=== PATIENT | female | born 1980 | race Caucasian/White ===

== ENCOUNTER → 2017-08-29 | Day surgery (SDC) | payer BC, OTHER ==
[2017-08-27 08:26] VITALS: BMI 47.0
[~2017-08-29] VITALS: Ht 162.6 cm; Wt 128.2 kg
[~2017-08-29] MED LIST: ATROPINE SULFATE 0.1 MG/ML 5ML SYR IV PRN; BACITRACIN OINT 15 GM TUBE ONE; BUPIVACAINE 0.5 % 5 MG/1 ML MPF 30ML VIAL ONE; BUPR-79 PO; CEFAZOLIN 3000MG IV PUSH 15 ML IV SCH; CEFAZOLIN SOD 2000MG/10 ML IV PUSH IV ONE; DEXAMETHASONE SOD INJ 4 MG/ML VIAL ONE; EpHEDrine SULFATE INJ 50 MG/ML AMP IV PRN; FENTANYL CITRATE INJ 50 MCG/1 ML 2 ML VIAL ONE; GLYCOPYRROLATE INJ 0.2 MG/ML VIAL ONE; HYDROmorphone INJ 1 MG/ML SYR IV PRN; LABETALOL HCL IV 5 MG/ML 20ML IV PRN; LACTATED RINGER'S 1000ML 1,000 ML IV SCH; LEVOIUD TOP; LIDOCAINE HCL 1% 20 ML VIAL ONE; LIDOCAINE HCL 2% 2 ML VIAL (20MG/ML) ONE; MEPERIDINE HCL 25 MG/ML CARP IV PRN; MIDAZOLAM HCL 1 MG/ML 2ML VIAL ONE; MoRPHine SULFATE 2 MG/ML CARP IV PRN; MoRPHine SULFATE 4 MG/ML 1 ML CARP\\VIAL IV PRN; NEOSTIGMINE METHYLSULFATE 5 MG/5 ML SYR ONE; ONDANSETRON INJ 2 MG/ML 2 ML VIAL IV PRN; ONDANSETRON INJ 2 MG/ML 2 ML VIAL ONE; OXYC-57 PO; OXYCODONE/ACETAMINOPHEN 5-325 TAB PO PRN; PRLSR20 PO; PROPOFOL IV EMULSION 10 MG/ML 20 ML VIAL IV ONE; ROCURONIUM BROMIDE 10 MG/ML 5 ML VIAL IV ONE
[2017-08-29 09:23] VITALS: BP 151/72; PULSE 78; TEMP 36.9; O2SAT 97; Ht 162.6 cm; Wt 128.2 kg
--- NOTE | 2017-08-29 09:48 | History & Physical Bridge Note ---
H&P Re-Evaluation Bridge Note: I have examined the patient, reviewed the History & Physical and in the interval since the performance of the History & Physical I have noted the following changes of clinical significance: No changes noted
--- NOTE | 2017-08-29 11:59 | [facility] Post Operative Brief Note ---
Immediate Operative Summary Operative Date Aug 29, 2017. Pre-Operative Diagnosis Cholelithiasis, chronic cholecystitis Post-Operative Diagnosis Cholelithiasis, chronic cholecystitis Procedure(s) Performed Laparoscopic Cholecystectomy Surgeon Dr. Naeem Vail Rn Progressive Care Unit Surgeon(s) Maggy Barrett PA-C Estimated Blood Loss 10ml Findings cholelithiasis, chronic cholecystitis Fluids (cc crystalloids) 1000ml Specimens Permanent specimens A: Gallbladder and contents Drains none Anesthesia general Complication(s) None Disposition Recovery Room / PACU
--- NOTE | 2017-08-29 12:12 | Discharge Instructions ---
Discharge Instructions Date of Service Aug 29, 2017. Admission Reason for Admission: Symptomatic Cholelithiasis Discharge Discharge Diagnosis / Problem: same Discharge Goals Goal(s): Decrease discomfort, Improve function Activity Recommendations Activity Limitations: as noted below No heavy lifting over 20 pounds for 2 weeks No strenuous activity until cleared by surgeon No submerging incisions underwater for 2 weeks (no bathing, swimming, or hot tubs) No driving while taking narcotic pain medication or until you are pain free . Instructions / Follow-Up Instructions / Follow-Up You may shower in 3 days, sponge bath and wash hair in meantime Keep dressings clean and dry and then remove in 3 days Keep steri strips on incisions for 7 days and then remove, they may fall off on their own that is okay Walking and light activity is encouraged You may take extra strength Ibuprofen in between Percocet as needed. Do not take Tylenol in between Percocet dosing as Percocet has Tylenol in it Follow-up in surgical office in 1-2 weeks, please call [phone] if you do not already have an appointment Current Hospital Diet Patient's current hospital diet: Discharge Diet Recommended Diet: Regular Diet, Low Fat Diet Procedures Procedures Performed: Laparoscopic Cholecystectomy Pending Studies Studies pending at discharge: yes List of pending studies: Gallbladder pathology- will be reviewed at follow-up visit Medical Emergencies . Who to Call and When: Medical Emergencies: If at any time you feel your situation is an emergency, please call 911 immediately. . Non-Emergent Contact Non-Emergency issues call your: Primary Care Provider, Surgeon Call Non-Emergent contact if: you have a fever, temperature is above 101.5, your pain is not controlled, your pain is worsening, your pain is unusual for you, wound has increased drainage, wound has increased redness, wound has increased pain . "Provider Documentation" section prepared by Maggy Barrett. . VTE Core Measure Inpt VTE Proph given/why not?: SCD's [place] Drug Monitoring Program Search Results: patient reviewed within database, no issues identified
[2017-08-29] MEDS: FENTANYL CITRATE INJ 50 MCG/1 ML 2 ML VIAL IV PRN ×2 (12:15→12:20)
--- NOTE | 2017-08-29 12:29 | OPERATIVE REPORT ---
DATE OF OPERATION: 08/29/2017 PREOPERATIVE DIAGNOSIS: Chronic cholecystitis, cholelithiasis. POSTOPERATIVE DIAGNOSIS: Same. OPERATION: Laparoscopic cholecystectomy. SURGEON: Dr. Naeem Vail. AERIAL HURRICANE HUNTER: Maggy Barrett PA-C. ANESTHESIA: General. ESTIMATED BLOOD LOSS: About 10 mL. IV FLUIDS: 1000 mL. FINDINGS: Chronic cholecystitis, cholelithiasis. COMPLICATIONS: None. INDICATIONS FOR THE PROCEDURE: This is a 36-year-old female who presented symptomatic cholelithiasis. The patient will be required to do laparoscopic cholecystectomy, possible open, possible cholangiogram. I did talk to the patient about the benefit and risk, alternate procedure. I indicated the risks may include but not limited such as bleeding, infection, injury to common bile duct, injury to bowel, may need ERCP, DVT, incisional hernia. The patient understands. She signed informed consent and I answered all questions. DETAILS OF PROCEDURE: We brought the patient to the OR, put the patient in the supine position. The patient received SCD on bilateral legs to prevent DVT. Also, the patient received 2 grams Ancef IV for prophylactic antibiotic. The patient received general anesthesia without difficulty. The abdomen was prepped and draped in routine sterile fashion. After a timeout, I injected local anesthesia by using 1% lidocaine mixed with 0.5% Marcaine just above umbilical, made a small incision just above umbilical, opened fascia and opened peritoneum under direct vision. I put a Nayeli trocar in, connected to CO2 to create pneumoperitoneum. Flow rate is 6 liter per minute. Pressure not more than 14 mmHg. Once we get a nice pneumoperitoneum, we put a camera in to look around the abdomen showing normal finding on the stomach, small bowel, large bowel, liver; however, there was some omentum covering the gallbladder wall showing more thickening, edema, showing chronic cholecystitis. Then, we put another 3.5 mm trocar on the right upper quadrant. Once all trocars in I put grasper in to hold the gallbladder base, put direction to the diaphragm and put another grasper in to hold the pouch of the gallbladder, put latter to expose the triangle of Calot. The cystic duct was identified and mobilized and put two 5 mm metal clips on the proximal cystic duct, 1 on the distal cystic duct. I used scissor transection the cystic duct. The cystic artery was identified and mobilized. I put two 5 mm metal clips on the proximal cystic artery, 1 on the distal cystic artery, then I used scissor transection the cystic artery. Then I used Bovie to take down the gallbladder through the liver bed without difficulty. Rechecked no active bleeding, no bile leak. We removed the gallbladder through the catch bag. Then we reinserted Nayeli trocar in creating pneumoperitoneum again to look around the abdomen showing no active bleeding, no bile leak from the liver bed. Then we removed all trocar under direct vision, no active bleeding from trocar sites. The pneumoperitoneum was released and then we closed the umbilical incision, fascial layer by using #1 Vicryl [id number] x2, closed the skin and subcutaneous layer by using 2-0 Vicryl interrupted and closed skin by using 4-0 Vicryl continuous running. Then we closed another 3.5 mm trocar site skin only by using 4-0 Vicryl. Then we put the dressing on. The patient tolerated the procedure well. All the instrument, needle and sponge count were correct x2 at the end of case. The patient transferred to recovery room in stable condition. The specimen sent to pathology. After procedure, I did talk to the patient and family member about OR finding and procedure we did, they understand. I attest to the content of the Intraoperative Record and any orders documented therein. Any exception s are noted below.
--- NOTE | 2017-08-29 12:37 | Anesthesiology Progress Note ---
Anesthesia Post Op Note Date & Time Aug 29, 2017 at 12:37 Vital Signs Pain Intensity: 3 Vital Signs Past 12 Hours Date Time Temp Pulse Resp B/P (MAP) Pulse Ox O2 Delivery O2 Flow Rate FiO2 08/29/17 12:35 36.3 66 16 130/80 97 Nasal Cannula 2 08/29/17 12:25 60 16 140/76 96 Nasal Cannula 2 08/29/17 12:15 60 14 140/76 99 Oxymask 5 08/29/17 12:06 36.4 76 12 151/94 98 Oxymask 5 08/29/17 09:23 36.9 78 16 151/72 (98) 97 Room Air Notes Mental Status: alert / awake / arousable, participated in evaluation Pt Amnestic to Procedure: Yes Nausea / Vomiting: adequately controlled Pain: adequately controlled Airway Patency, RR, SpO2: stable & adequate BP & HR: stable & adequate Hydration State: stable & adequate Anesthetic Complications: no major complications apparent
[2017-08-29 12:50] VITALS: BP 131/61; PULSE 65; TEMP 36.6; O2SAT 95
[2017-08-29 13:20] VITALS: BP 173/97; PULSE 76; TEMP 36.7; O2SAT 94
== END | disposition home or self-care (01) ==
LOC: C.ACU 09:01
PROVIDERS: ATTEND Surgery
DX: K80.10 Calculus of gallbladder with chronic cholecystitis without obstruction (principal); F17.200 Nicotine dependence, unspecified, uncomplicated; Z79.899 Other long term (current) drug therapy; Z98.890 Other specified postprocedural states; E66.9 Obesity, unspecified; Z68.42 Body mass index [BMI] 45.0-49.9, adult; Z86.718 Personal history of other venous thrombosis and embolism

== ENCOUNTER 2023-10-21 16:10 | Observation (INO) ==
--- OUTSIDE RECORDS SUMMARY | 2023-10-21 16:15 | External Medical Summary | Summary of Care ---
Author Name Unknown Organization [facility] Address [address] [place] [address] Phone [phone] Care Team Providers Care Bologna Maker Name Role Phone Zora Fonseca MD Primary Care Prov ider Encounter Details Date Type Department Care Team (Late st Contact Info) Description 09/17/2023 Specialty Pharmacy [facility], [address] [phone] Medication, [facility], [address] [id number] Allergies No known active allergiesdocumented as of this encounter (statuses as of 09/21/2023) Medications Medication Sig Dispensed Refills Start Date End Date Status Levonorgestrel 20 MCG/24HR Intrauterine Intrauterine Device Insert 1 Each into uterus once. Inserted 2009? 1 Each 0 Active Fexofenadine HCl 180 MG Oral Tablet Take 1 Tablet by mouth in the morning. 0 10/08/2018 Active Apixaban 5 MG Oral Tablet (Eliquis) Take 1 Tablet by mouth in the morning and 1 Tablet before bedtime. 180 Tablet 3 02/15/2023 Active Entresto 97-103 MG Oral Tablet (sacubitril-valsarta n 97-103 mg per tab) TAKE BY MOUTH 1 TABLET IN THE MORNING AND 1 TABLET BEFORE BEDTIME. 180 Tablet 3 02/15/2023 Active Empagliflozin 10 MG Oral Tablet (Jardiance) Take 1 Tablet by mouth in the morning. 90 Tablet 3 02/15/2023 Active Spironolactone 25 MG Oral Tablet (Aldactone) Take 1 Tablet by mouth in the morning. 90 Tablet 3 02/15/2023 Active Torsemide 20 MG Oral Tablet (Demadex) Take 1 Tablet by mouth in the morning. Take an additional tablet as needed. 200 Tablet 3 02/15/2023 Active Rosuvastatin Calcium 5 MG Oral Tablet (Crestor)Indications :Dyslipidemia, goal LDL below 100 Take 1 Tablet by mouth in the morning. 90 Tablet 3 02/15/2023 Active Gabapentin 300 MG Oral Capsule (Neurontin)Indicatio ns:Neuropathic pain,Numbness and tingling,DDD (degenerative disc disease), cervical Take 1 Capsule by mouth in the morning and 1 Capsule in the evening. 180 Capsule 3 05/02/2023 Active Levothyroxine Sodium 50 MCG Oral Tablet (Levoxyl)Indications :Subclinical hypothyroidism,Histo ry of partial thyroidectomy TAKE 1 TABLET BY MOUTH IN THE MORNING. (AT LEAST 30 MIN PRIOR TO BREAKFAST OR OTHER MEDS). 90 Tablet 1 05/02/2023 Active Omeprazole 40 MG Oral Capsule Delayed Release (PriLOSEC) Take 1 Capsule by mouth in the morning. 90 Capsule 1 05/02/2023 Active Montelukast Sodium 10 MG Oral Tablet (Singulair) Take 1 Tablet by mouth at bedtime. 90 Tablet 5 05/02/2023 Active hydrOXYzine HCl 25 MG Oral TabletIndications:Pa ron attack Take 1 Tablet by mouth every 6 hours as needed for Anxiety. 40 Tablet 0 07/26/2023 Active Escitalopram Oxalate 20 MG Oral Tablet (Lexapro)Indications :REMY (generalized anxiety disorder) TAKE 1 TABLET BY MOUTH EVERY DAY IN THE MORNING 90 Tablet 3 08/07/2023 Active Metoprolol Succinate ER 50 MG Oral Tablet Extended Release 24 Hour (toPROL XL) Take 1.5 Tablets by mouth in the morning and 1.5 Tablets before bedtime. 270 Tablet 3 09/07/2023 Active documented as of this encounter (statuses as of 09/21/2023) Active Problems Problem Noted Date Diagnosed Date Major depressive disorder, single episode, mild 05/02/2023 Bilateral carpal tunnel syndrome 03/21/2023 Paroxysmal atrial fibrillation 11/02/2022 ICD (implantable cardioverter-defibrillator) in place 06/01/2022 REMY (generalized anxiety disorder) 06/01/2022 HFrEF (heart failure with reduced ejection fract ion) 02/10/2022 NICM (nonischemic cardiomyopathy) 07/29/2021 Acute systolic heart failure 07/29/2021 History of sarcoma of soft tissue 02/02/2021 Family history of cancer 02/02/2021 Pseudotumor cerebri 11/27/2018 HTN, goal below 140/90 07/15/2018 Diarrhea due to malabsorption 07/15/2018 Morbid obesity due to excess calories 07/15/2018 Thyromegaly 06/28/2018 ADVANCE DIRECTIVE INFORMATION 12/26/2005 Overview: No, Advance Directive brochure given to patient. Allergic rhinitis 01/30/2002 Irritable bowel syndrome Overview: Librax helps documented as of this encounter (statuses as of 09/21/2023) Resolved Problems Problem Noted Date Diagnosed Date Resolved Date Mild depression 06/01/2022 05/02/2023 Body mass index (BMI) of 45. 0 to 49.9 in adult 02/13/2022 09/20/2022 Overview: Per Obesity protocol - Per Obesity protocol - Per Obesity protocol - - Body mass index (BMI) of 40. 0 to 44.9 in adult 08/15/2021 02/16/2022 Overview: Per Obesity protocol - Per Obesity protocol - - Body mass index (BMI) of 45. 0 to 49.9 in adult 08/16/2020 08/18/2021 Overview: Per Obesity protocol - - Body mass index (BMI) of 40. 0 to 44.9 in adult 11/18/2018 08/19/2020 Overview: Per Obesity protocol #1 - Body mass index (BMI) of 45. 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 07/15/2018 JOINT PAIN-L-LEG 10/20/2004 07/15/2018 Encounter for supervision of other normal 12/16/2002 07/15/2018 Overview: ICD-10 update of inactive term ACUTE CYSTITIS 12/03/2008 Overview: Resolved per Benign Acute Dxs Protocol #3 documented as of this encounter (statuses as of 09/21/2023) Immunizations Name Administration Dates Next Due PPD 06/27/2017 Seasonal Influenza, PF, 6 M & above, IM , (FluLaval or Fluzone) 09/10/2020,06/28/2018,07/30/2017 TDAP (age 10 and older)(Boostrix) 03/07/2018 documented as of this encounter Social History Tobacco Use Types Packs/Day Years Used Date Smoking Tobacco: Former Cigarettes 0.5 6 Q uit: 06/08/2018 Smokeless Tobacco: Never Comments:started age 19 Alcohol Use Standard Drinks/Week Comments No 0 (1 standard drink = 0.6 oz pur e alcohol) PHQ-2 Answer Date Recorded PHQ Adult Total Score 2 05/02/2023 Sex and Gender Information Value Date Recorded Sex Assigned at Not on file Gender Identity Not on file Sexual Orientation Not on file Job Start Date Occupation Industry Not on file Not on file Not on file documented as of this encounter Functional Status Functional Status Response Date of Assess ment Are you deaf or do you have serious difficulty h earing? No 11/04/2018 Are you blind or do you have serious difficulty seeing, even when wearing glasses? No 11/04/2018 Do you have serious difficul ty walking or climbing stairs? (5 years old or older) No 11/04/2018 Do you have difficulty dress ing or bathing? (5 years old or older) No 11/04/2018 Because of a physical, menta l, or emotional condition, do you have difficulty doing errands alone such as visiting a doctor s office or shopping? (15 years old or older) No 11/04/19 19 Cognitive Status Response Date of Assessm ent Because of a physical, menta l, or emotional condition, do you have serious difficulty concentrating, remembering, or making decisions? (5 years old or older) No 11/04/2018 documented as of this encounter Progress Notes * Kaye Bennett [facility] - 09/21/2023 4:16 PM EST Patient called back and spoke with Tayler. Would like prescription forwarded to [facility] in [place]. Kaye Bennett, Pharm.D. Specialty Medication Pharmacist [facility] 09/21/2023, 4:17 PM * Cassia Howe [facility] - 09/19/2023 9:31 AM EST 1st attempt - Left message to set up delivery for Weherbvy 2.4. [facility] Fried Cake Maker [facility] 09/19/2023,9:31 AM * Nancy Bullock [facility] - 09/17/2023 4:30 PM EST [facility] Retail Medication Protocol, Chart Review (WIMLA) MRN Verified: yes Per protocol, further retail medication education being provided by office or by [facility] when requested by patient. Prescribed medication: Medication: Wegovy Strength and Frequency: 2.4 mg SQ weekly Indication: weight management/loss Appropriate dose based on available information: yes Applicable lab values: Yes, Glucose and HGBA1C Results: Lab Results Component Value Date/Time GLUCOSE - [facility] 78 09/07/2023 09:50 AM GLUCOSE - [facility] 91 05/11/2023 01:54 PM GLUCOSE - [facility] 99 09/20/2022 01:28 PM GLUCOSE - [facility] 108 08/03/2020 12:44 PM GLUCOSE - [facility] 83 11/22/2018 02:13 PM GLUCOSE - [facility] 95 10/21/2018 04:15 PM GLUCOSE METER POCT - [facility] 81 03/21/2023 07:00 AM GLUCOSE, GESTATIONAL 115 06/23/2004 11:56 AM GLUCOSE, GESTATIONAL 83 10/29/2002 02:46 PM GLUCOSE, URINE - [facility] >=1000 (A) 09/20/2022 01:28 PM GLUCOSE, URINE - [facility] 250 (A) 04/13/2022 02:50 PM GLUCOSE, URINE - [facility] Negative 02/02/2022 02:23 PM GLUCOSE, URINE - [facility] neg 06/13/2005 12:00 AM GLUCOSE, URINE - [facility] NEGATIVE 11/30/2004 04:57 PM GLUCOSE, URINE - [facility] neg 09/08/2004 12:00 AM GLUCOSE-OUTSIDE LAB 70 05/06/2023 12:00 AM GLUCOSE-OUTSIDE LAB 80 12/13/2018 12:00 AM Wgt/BSA: Yes, Wt Readings from Last 3 Encounters: 09/07/23 129.3 kg (285 lb) 07/18/23 125.6 kg (277 lb) 05/11/23 126 kg (277 lb 11.2 oz) . Reason for call to patient today by automotive tire technician: [facility] info: $32.15 copay Shipment to be set up by automotive tire technician, questions given to pharmacist as needed. Piedad Bullock, Pharm.D. Clinical Specialty Pharmacist [facility] 09/17/2023, 4:30 PM documented in this encounter Plan of Treatment Upcoming Encounters Date Type Department Care Team (Late st Contact Info) Description 10/18/2023 10:00 AM EST Telemedicine Nutrition & Weight Management, [facility] [address] [facility] [place] [id number] Rafy Simmons MD [address] [facility] [place] [phone] 10/24/2023 1:40 PM EST Office Visit Family Medicine [address] [place] [phone] Zora Fonseca MD [address] [place] [address] [place] [phone] 03/12/2024 9:30 AM EDT Office Visit Cardiology, [facility] [address] [facility] [place] [address] Terrie Sanchez CRNP [address] [place] [address] 04/07/2024 9:30 AM EDT Cardiac Studies Cardiology, [facility] [address] [place] [address] [facility] [address] [place] [address] 05/26/2024 8:30 AM EDT Office Visit Gynecology/Obstetrics [address] [place] [phone] Melinda Walls CRNP [address] [place] [address] Health Maintenance Due Date Last Done Comments Hepatitis B (1 of 3 - 3-dose series) 1981 COVID-19 Vaccine (#1) 05/07/1982 Pneumococcal Vaccine: Pediatrics (0 to 5 Years) and At-Risk Patients (6 to 64 Years) (1 - PCV) 1987 Hepatitis C Screening 1999 HPV/Co-Test 2011 Cervical Cancer Screening 08/10/2019 Pap Smear 08/10/2019 08/10/2016, 02/04/2004 Mammogram 2021 Influenza Vaccine (FLU shot) (#1) 2023 09/10/2020, 06/28/2018, 07/30/2017, Additional history exists TSH 05/01/2024 05/01/2023, 02/05, 01/28/2022, Additional history exists Depression Screening 05/02/2024 05/02/2023 Albumin/Creatinine Ratio 07/18/2024 07/18/2021 GFR 09/07/2024 09/07/2023, 08/0 01/2023, 05/06/2023, Additional history exists Diabetes Screening 09/07/2026 09/07/2023, 0 05/11/2023, 05/06/2023, Additional history exists DTaP,Tdap,and Td Vaccines (2 - Td or Tdap) 03/07/2028 03/07/2018 Lipid Panel 05/01/2028 05/01/2023, 02/05, 07/18/2021, Additional history exists IUD 7-Year 12/15/2028 12/15/2021 GARDASIL-HPV IMMUNIZATION SERIES Aged Out No longer eligible based on patient's age to complete this topic MENINGOCOCCAL (MENACTRA/MENVEO) Aged Out No longer eligible based on patient's age to complete this topic documented as of this encounter Medical Devices Not on filedocumented as of this encounter Advance Directives Latest Code Status on File Code Status Date Activated Date Inactivated Comments Full Code 03/21/2023 8:53 AM 03/21/2023 2:26 PM Question Answer Comments Discussion of Advance Directives occurred with: Not Discussed due to patient's condition Code Status History Code Status Date Activated Date Inactivated Comments Full Code 11/04/2018 9:41 AM 11/04/2018 8:16 PM This order reflects the patients wishes and were consensually agreed upon. Care Teams Bologna Maker Relationship Specialty Start Date End Date Zora Fonseca MD [address] [place] [address] [place] [id number] PCP - General Family Medicine 07/16/18 documented as of this encounter
--- OUTSIDE RECORDS SUMMARY | 2023-10-21 16:15 | External Medical Summary | Summary of Care ---
Author Name Unknown Organization [facility] Address [address] [place] [address] Phone [phone] Care Team Providers Care Graining Operator Name Role Phone Zora Fonseca MD Primary Care Prov ider Reason for Visit * Reason Onset Date Comments Medication Refill 09/17/2023 Advice 09/17/2023 Encounter Details Date Type Department Care Team (Late st Contact Info) Description 09/17/2023 Telephone Nutrition & Weight Management, [place] [address] [place], [place] [id number] Ry Vora, PRICILA [address], [place] [id number] Medication Refill; Advice Allergies No known active allergiesdocumented as of this encounter (statuses as of 09/18/2023) Medications Medication Sig Dispensed Refills Start Date [...] before bedtime. 270 Tablet 3 09/07/2023 Active Wegovy 2.4 MG/0.75ML Subcutaneous Solution Auto-injector (Semaglutide-Weight Management)Indicatio ns:Class 3 severe obesity due to excess calories with serious comorbidity and body mass index (BMI) of 45.0 to 49.9 in adult (HCC),HFrEF (heart failure with reduced ejection fraction) (HCC),Idiopathic cardiomyopathy (HCC),Pseudotumor cerebri,Thyromegaly, ICD (implantable cardioverter-defibri llator) in place,At risk for obstructive sleep apnea,NICM (nonischemic cardiomyopathy) ([facility]) Inject 2.4 mg (1 pen) under the skin once a week. 9 mL 1 09/17/2023 Active documented as of this encounter (statuses as of 09/18/2023) Active Problems Problem Noted Date Diagnosed Date [...] as of this encounter (statuses as of 09/18/2023) Resolved Problems Problem Noted Date Diagnosed Date [...] as of this encounter (statuses as of 09/18/2023) Immunizations Name Administration Dates Next Due PPD 06/27/2017 Seasonal Influenza, PF, 6 M & above, IM , (FluLaval or Fluzone) 09/10/2020,06/28/2018,07/30/2017 Seasonal Influenza, Split, I IV3, With Preserve, Inj 07/11/2004 TDAP (age 10 and older)(Boostrix) 03/07/2018 Varicella Vaccine (Chicken Pox) 04/17/2001,03/13 documented as of this encounter Social History [...] No 11/04/2018 documented as of this encounter Miscellaneous Notes * Addendum Note - Ry Vora DNP - 09/18/2023 1:47 PM ESTAddended by: RY VORA on: 09/18/2023 01:47 PM Modules accepted: Orders * Telephone Encounter - Sheila Freed LPN - 09/18/2023 1:28 PM EST Called pt. Did take the 1.7mg. Did vomit once with first injection but nothing after that. Should she start the 2.4 or do another month of the 1.7mg? Please advise. * Telephone Encounter - Marialuisa Lee OSA - 09/17/2023 1:40 PM EST Pt would like to speak with nurse about Wegovy dosage * Telephone Encounter - Ry Vora DNP - 09/17/2023 1:40 PM EST Order sent - may be autorouted to specialty pharmacy Ry Vora DNP, CRNP * Telephone Encounter - Charisma Martinez CPhT - 09/17/2023 1:28 PM EST Pt calling stating doctor needs to send new rx for Wegovy 2.4 mg dose. Pt stated she had completed Wegovy 1.7 MG/0.75ML Subcutaneous Solution Auto-injector (Semaglutide-Weight Management) and needs the new dose send over to her Pharmacy. Thank you, Charisma Martinez CPhT [facility] 09/17/2023,1:32 PM documented in this encounter Plan of Treatment Upcoming Encounters Date Type Department Care Team (Late st Contact Info) Description 10/18/2023 10:00 AM EST Telemedicine Nutrition & Weight Management, [address] [place] [address] Rafy Simmons MD [address] [place] [facility] [place] [phone] 10/24/2023 1:40 PM EST Office Visit Family Medicine [address] [place] [phone] Zora Fonseca MD [address] [place] [address] [place] [phone] 03/12/2024 9:30 AM EDT Office Visit Cardiology, [address] [place] [address] Terrie Sanchez CRNP [address] [place] [id number] 04/07/2024 9:30 AM EDT Cardiac Studies Cardiology, [facility] [address] [place] [address] [facility] [address] [place] [address] 05/26/2024 8:30 AM EDT Office Visit Gynecology/Obstetrics [address] [place] [address] Melinda Walls CRNP [address] [place] [address] Health Maintenance Due Date Last Done Comments [...] Not on filedocumented as of this encounter Visit Diagnoses Diagnosis Class 3 severe obesity due to excess calories with serious comorbidity and body mass index (BMI) of 45.0 to 49.9 in adult ([facility])- Primary HFrEF (heart failure with reduced ejection fraction) ([facility]) Idiopathic cardiomyopathy (HCC) Other primary cardiomyopathies Pseudotumor cerebri Benign intracranial hypertension Thyromegaly Goiter, unspecified ICD (implantable cardioverter-defibrillator) in place At risk for obstructive sleep apnea NICM (nonischemic cardiomyopathy) ([facility]) Other primary cardiomyopathies documented in this encounter Advance Directives Latest Code Status [...] and were consensually agreed upon. Care Teams Graining Operator Relationship Specialty Start Date End Date Zora Fonseca MD [address] [place] [address] [place] [id number] PCP - General Family Medicine 07/16/18 documented as of this encounter
--- OUTSIDE RECORDS SUMMARY | 2023-10-21 16:15 | External Medical Summary | Summary of Care ---
Author Name Unknown Organization [facility] Address [address] [place] [address] Phone [phone] Care Team Providers Care Dramatic Coach Name Role Phone Zora Fonseca MD Primary Care Prov ider Reason for Visit * Reason Comments Follow Up Encounter Details Date Type Department Care Team (Late st Contact Info) Description 09/07/2023 9:00 AM EST Office Visit Cardiology, [facility] [address] [place] [address] Terrie Sanchez CRNP [address] [facility] [address] NICM (nonischemic cardiomyopathy) ([facility])*; HFrEF (heart failure with reduced ejection fraction) ([facility]); FLNC-related myofibrillar myopathy; ICD (implantable cardioverter-defibril lator) in place; Paroxysmal atrial fibrillation ([facility]); Dyslipidemia, goal LDL below 100 Allergies No known active allergiesdocumented as of this encounter (statuses as of 09/07/2023) Medications Medication Sig Dispensed Refills Start Date End Date Status Levonorgestrel 20 MCG/24HR Intrauterine Intrauterine Device Insert 1 Each into uterus once. Inserted 2009? 1 Each 0 Active Fexofenadine HCl 180 MG Oral Tablet Take 1 Tablet by mouth in the morning. 0 9 Active Apixaban 5 MG Oral Tablet (Eliquis) Take 1 Tablet by mouth in the morning and 1 Tablet before bedtime. 180 Tablet 3 3 Active Entresto 97-103 MG Oral Tablet (sacubitril-valsa rtan 97-103 mg per tab) TAKE BY MOUTH 1 TABLET IN THE MORNING AND 1 TABLET BEFORE BEDTIME. 180 Tablet 3 3 Active Empagliflozin 10 MG Oral Tablet (Jardiance) Take 1 Tablet by mouth in the morning. 90 Tablet 3 3 Active Spironolactone 25 MG Oral Tablet (Aldactone) Take 1 Tablet by mouth in the morning. 90 Tablet 3 3 Active Torsemide 20 MG Oral Tablet (Demadex) Take 1 Tablet by mouth in the morning. Take an additional tablet as needed. 200 Tablet 3 3 Active Rosuvastatin Calcium 5 MG Oral Tablet (Crestor)Indicati ons:Dyslipidemia, goal LDL below 100 Take 1 Tablet by mouth in the morning. 90 Tablet 3 3 Active Gabapentin 300 MG Oral Capsule (Neurontin)Indica tions:Neuropathic pain,Numbness and tingling,DDD (degenerative disc disease), cervical Take 1 Capsule by mouth in the morning and 1 Capsule in the evening. 180 Capsule 3 3 Active Levothyroxine Sodium 50 MCG Oral Tablet (Levoxyl)Indicati ons:Subclinical hypothyroidism,Hi story of partial thyroidectomy TAKE 1 TABLET BY MOUTH IN THE MORNING. (AT LEAST 30 MIN PRIOR TO BREAKFAST OR OTHER MEDS). 90 Tablet 1 3 Active Omeprazole 40 MG Oral Capsule Delayed Release (PriLOSEC) Take 1 Capsule by mouth in the morning. 90 Capsule 1 3 Active Montelukast Sodium 10 MG Oral Tablet (Singulair) Take 1 Tablet by mouth at bedtime. 90 Tablet 5 3 Active hydrOXYzine HCl 25 MG Oral TabletIndications :Panic attack Take 1 Tablet by mouth every 6 hours as needed for Anxiety. 40 Tablet 0 3 Active Wegovy 1.7 MG/0.75ML Subcutaneous Solution Auto-injector (Semaglutide-Weig ht Management)Indica tions:Class 3 severe obesity due to excess calories with serious comorbidity and body mass index (BMI) of 45.0 to 49.9 in adult ([facility]) INJECT 1.7 MG UNDER THE SKIN ONCE A WEEK FOR 28 DAYS. AFTER FINISHING 1 MG INJECTIONS DO NOT START BEFORE FEBRUARY 05, 2023. 3 mL 0 3 09/07/20 23 Active Escitalopram Oxalate 20 MG Oral Tablet (Lexapro)Indicati ons:REMY (generalized anxiety disorder) TAKE 1 TABLET BY MOUTH EVERY DAY IN THE MORNING 90 Tablet 3 3 Active Metoprolol Succinate ER 50 MG Oral Tablet Extended Release 24 Hour (toPROL XL) Take 1.5 Tablets by mouth in the morning and 1.5 Tablets before bedtime. 270 Tablet 3 3 Active Metoprolol Succinate ER 50 MG Oral Tablet Extended Release 24 Hour (toPROL XL) Take 1 Tablet by mouth in the morning and 1 Tablet before bedtime. 180 Tablet 3 3 09/07/20 23 Discontinued(Ref ill) Ozempic (1 MG/DOSE) 4 MG/3ML Subcutaneous Solution Pen-injector (Semaglutide (1 MG/DOSE)) Inject 1 mg under the skin once a week. 3 mL 0 3 09/07/20 23 Discontinued documented as of this encounter (statuses as of 09/07/2023) Active Problems Problem Noted Date Diagnosed Date [...] as of this encounter (statuses as of 09/07/2023) Resolved Problems Problem Noted Date Diagnosed Date [...] as of this encounter (statuses as of 09/07/2023) Immunizations Name Administration Dates Next Due PPD 06/27/2017 SEASONAL INFLUENZA, PF, 6 M & Above, IM , (FLULAVAL or FLUZONE) 09/10/2020,06/28/2018,07/30/2017 TDAP (age 10 and older)(Boostrix) 03/07/2018 documented as of this encounter Social History Tobacco Use Types Packs/Day Years Used Date Smoking Tobacco: Former Cigarettes 0.5 6 Q uit: 06/08/2018 Smokeless Tobacco: Never Tobacco Cessation:Counseling Given: Not Answered Comments:started age 19 Alcohol Use Standard Drinks/Week [...] on file documented as of this encounter Last Filed Vital Signs Vital Sign Reading Time Taken Comments Blood Pressure 128/74 09/07/2023 8:53 AM EST Pulse 78 09/07/2023 8:53 AM EST Temperature - - Respiratory Rate - - Oxygen Saturation 97% 09/07/2023 8:53 AM EST Inhaled Oxygen Concentration - - Weight 129.3 kg (285 lb) 09/07/2023 8:53 AM EST Height - - Body Mass Index 48.92 04/02/2023 11:56 AM EDT documented in this encounter Functional Status Functional Status Response [...] as of this encounter Progress Notes * Terrie Sanchez CRNP - 09/07/2023 9:00 AM EST Cardiology Outpatient Visit 09/07/2023 Primary Newspaper Distributor Supervisor: Dr. 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 03/2022: genetic testing , pathogenic variant of the FLNC gene, Implicated in nonischemic dilated cardiomyopathy, myofibrillar myopathy 04/19/22: Implantation of dual-chamber Medtronic AICD , For primary prevention of sudden cardiac given nonischemic cardiomyopathy, and NSVT Paroxysmal atrial fibrillation diagnosed on AICD interrogation 07/2022-lasting 2 hours and 22 minutes, started on Eliquis [id number] score of 4 (female, CHF, HTN, DM) Hypertension, goal below 140/90 Pseudotumor cerebri, idiopathic intracranial hypertension, diagnosed 2019 History of preeclampsia x2 History of partial thyroidectomy History of bony sarcoma, 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 Patient carries a history of nonischemic dilated cardiomyopathy with a genetic variant of the FL NC gene related to mi fibular myopathy. LVEF has been as low as 25-29% and ultimately a primary prevention AICD was placed. Most recent device interrogation in July of 2023 showed an atrial pacing burden of 13%, no mode switches. No VT or VF. No shocks. Adequate battery life of approximately 10 years noted. Patient was last evaluated by the undersigned approximately 6 months ago. At this time she was feeling well and offered no acute concerns. An echocardiogram was obtained on 02/28/2023 showing a moderately reduced LV systolic function of 35-39%, improved. There is moderate diffuse left ventricular hypokinesis. No changes were made. In May patient went to the ED due to lightheadedness/hypotension- found to be dehydrated and torsemide was transiently reduced. Today the patient presents with family. Overall she is feeling generally well but continues to havepalpitations symptoms described as a racing/pounding heartbeat she will become lightheaded and a little more short of breath. She then develops like a head jensen sensation and gets a headache. Symptoms last a few minutes. Normally during the middle of the day. Denies exertional chest pain or worsening shortness of breath however if the weather is very hot or very cold she notices that she has more difficulty being active. +fatigue. No syncope. No orthopnea or PND. No lower extremity edema. No fever, chills, cough, hematochezia, melena, or hemoptysis. She states she is compliant with all medications and offers no side effects. She is currently working to get disability in place. Current Outpatient Medications Medication Sig Dispense Refill Levonorgestrel 20 MCG/24HR Intrauterine Intrauterine Device Insert 1 Each into uterus once. Inserted 2009? 1 Each 0 Fexofenadine HCl 180 MG Oral Tablet Take 1 Tablet by mouth in the morning. Apixaban 5 MG Oral Tablet (Eliquis) Take 1 Tablet by mouth in the morning and 1 Tablet before bedtime. 180 Tablet 3 Entresto 97-103 MG Oral Tablet (sacubitril-valsartan 97-103 mg per tab) TAKE BY MOUTH 1 TABLET IN THE MORNING AND 1 TABLET BEFORE BEDTIME. 180 Tablet 3 Empagliflozin 10 MG Oral Tablet (Jardiance) Take 1 Tablet by mouth in the morning. 90 Tablet 3 Spironolactone 25 MG Oral Tablet (Aldactone) Take 1 Tablet by mouth in the morning. 90 Tablet 3 Torsemide 20 MG Oral Tablet (Demadex) Take 1 Tablet by mouth in the morning. Take an additional tablet as needed. 200 Tablet 3 Rosuvastatin Calcium 5 MG Oral Tablet (Crestor) Take 1 Tablet by mouth in the morning. 90 Tablet 3 Gabapentin 300 MG Oral Capsule (Neurontin) Take 1 Capsule by mouth in the morning and 1 Capsule in the evening. 180 Capsule 3 Levothyroxine Sodium 50 MCG Oral Tablet (Levoxyl) TAKE 1 TABLET BY MOUTH IN THE MORNING. (AT LEAST 30 MIN PRIOR TO BREAKFAST OR OTHER MEDS). 90 Tablet 1 Omeprazole 40 MG Oral Capsule Delayed Release (PriLOSEC) Take 1 Capsule by mouth in the morning. 90Capsule 1 Montelukast Sodium 10 MG Oral Tablet (Singulair) Take 1 Tablet by mouth at bedtime. 90 Tablet 5 hydrOXYzine HCl 25 MG Oral Tablet Take 1 Tablet by mouth every 6 hours as needed for Anxiety. 40 Tablet 0 Wegovy 1.7 MG/0.75ML Subcutaneous Solution Auto-injector (Semaglutide-Weight Management) INJECT 1.7MG UNDER THE SKIN ONCE A WEEK FOR 28 DAYS. AFTER FINISHING 1 MG INJECTIONS DO NOT START BEFORE FEBRUARY 05, 2023. 3 mL 0 Escitalopram Oxalate 20 MG Oral Tablet (Lexapro) TAKE 1 TABLET BY MOUTH EVERY DAY IN THE MORNING 90Tablet 3 Metoprolol Succinate ER 50 MG Oral Tablet Extended Release 24 Hour (toPROL XL) Take 1.5 Tablets by mouth in the morning and 1.5 Tablets before bedtime. 270 Tablet 3 No current facility-administered medications for this visit. Past Medical History: Diagnosis Date Acute cystitis Cystitis,acute HFrEF (heart failure with reduced ejection fraction) ([facility]) 02/10/2022 Hypertension Irritable bowel syndrome Librax helps Juvenile osteochondrosis of leg Obesity, BMI not known Pain in joint involving lower leg Tobacco use disorder Past Surgical History: Procedure Laterality Date CARPAL TUNNEL SURGERY Bilateral 03/21/2023 NEUROPLASTY MEDIAN NERVE AT CARPAL TUNNEL performed by Terry Foster MD at OR [facility] CTA CHEST NON-CORONARY W CONTRAST 02/01/[address] of thorax INFORMATION 6 surgeries on right leg for cancer KNEE OSTEOCHON ALLOGRAFT,SURG ARTHR 12/05/04 right REMOVAL OF THYROID LOBE, TOTAL Left 11/04/2018 TOTAL THYROID LOBECTOMY UNILATERAL performed by Graeme Singleton DO at OR [facility] REMOVE GALLBLADDER Social History Tobacco Use Smoking status: Former Packs/day: 0.50 Years: 6.00 Additional pack years: 0.00 Total pack years: 3.00 Types: Cigarettes Quit date: 06/08/2018 Years since quittin.2 Smokeless tobacco: Never Tobacco comments: started age 19 Vaping Use Vaping Use: Never used Substance Use Topics Alcohol use: No Drug use: No Review of patient's allergies indicates: No Known Allergies Review of Systems: See HPI for pertinent positives. All others negative, other than those noted in HPI. Physical Exam BP 128/74 | Pulse 78 | Wt 129.3 kg (285 lb) | SpO2 97% | BMI 48.92 kg/m | BSA 2.42 m General: No acute distress. A+Ox3. HEENT: Normocephalic. Atraumatic. Conjunctiva and sclera clear. NECK: No carotid bruits. No JVD. Carotid upstrokes are brisk. Heart: RRR. S1 and S2 noted without murmur, rubs, gallops. Lungs: Clear to auscultation. No wheezes, rhonchi, rales. Abdomen: Normal bowel sounds. Soft. Nontender. No masses or organomegaly. No abdominal bruits. Extremities: No edema. No clubbing or cyanosis. Brown discoloration on knucles and elbows, under left armpit Pulses: radial=2/4, posterior tibial=2/4, dorsalis pedis = 2/4. NEURO: No focal deficits. PSYCH: Normal. Lab data/imaging study review: Echo 02/2023 The qualitative LV ejection fraction is 35-39% (moderately reduced). The left ventricular cavity is mildly dilated (LVED volume 62-70 ml/m^2). The LV wall thickness is mildly increased (concentric). There is moderate diffuse left ventricular hypokinesis. Mild mitral regurgitation is present. Mild tricuspid regurgitation is present. There is no evidence of pulmonary hypertension. Compared to echocardiogram dated January 16, 2022, left ventricular systolic function has mildly improved. CMRI 03/2022 1. Cardiac MRI findings of a moderately dilated left ventricular cavity with moderate diffuse hypokinesis. The calculated LV ejection fraction is 39%.The precontrast T1 values are mildly elevated (suggesting interstitial fibrosis). Atypical midwall enhancement noted in basal to mid septal segment(s) on late gadolinium enhanced imaging. In aggregate, these findings are most consistent with nonischemic cardiomyopathy, likely hereditarydilated cardiomyopathy (DCM). 2. No myocardial infarction noted, on late gadolinium enhanced imaging. 3. The right ventricle is normal in size with normal regional and global systolic function. The calculated RV ejection fraction is 50%. Echo 01/2022 The examination is adequate to evaluate the referral indication. Calculated LV ejection Fraction = 30% (three dimensional volumes). There is severe diffuse left ventricular hypokinesis. The left atrium is moderately enlarged (42-48 ml/m^2). The left ventricular diastolic function is moderately abnormal (grade II). Global peak systolic longitudinal strain -14.5% Mild aortic valve sclerosis is present. Mild mitral regurgitation is present. Compared to last available study changes are noted as follows: Left ventricular systolic function has mildly improved Cardiac CT 02/2022 The coronary arteries are normal: absence of plaque and no luminal stenosis. Findings are consistent with CAD-RADS category 0 (absence of CAD), no further ischemic cardiac work up is needed. Considernonatherosclerotic causes of chest pain. The exam quality is good (mild artifacts are present). The Agatston calcium score is 0. The LV cavity size measures ~ 61 mm in diastole. The LV exhibits hypertrabeculation concerning for LV non-compaction. LVEDV = 239 mL. LVEDVi = 100 = Borderline enlarged LV. LV stroke volume = 139 mL. Recommend cardiac MRI for further evaluation of idiopathic/inheritable dilated cardiomyopathy and primary [id number] if clinical concern warrants further work-up. Less than 6 mm bilateral pulmonary nodules. No further follow-up is recommended if the patient is at low risk for malignancy. An optional follow-up CT scan of the chest can be performed in 12 months if the patient is at high risk Impression/Plan: 1. NICM (nonischemic cardiomyopathy) ([facility]) 2. HFrEF (heart failure with reduced ejection fraction) ([facility]) 3. FLNC-related myofibrillar myopathy 4. ICD (implantable cardioverter-defibrillator), dual, in situ -NICM. Chronic systolic heart failure, LVEF as low as 25-29% per echo 07/21/2021 -Genetic testing , pathogenic variant of the FLNC gene, Implicated in nonischemic dilated cardiomyopathy, myofibrillar myopathy -04/19/22: Implantation of dual-chamber Medtronic AICD , For primary prevention of sudden cardiac given nonischemic cardiomyopathy, and NSVT -NYHA class 2-3 1. Continue goal-directed medical therapy with metoprolol, Entresto, spironolactone, and Jardiance.Routine blood work ordered. Will increase metoprolol succinate to 75 mg twice daily due to increasepalpitations symptoms. Patient to call the office in about 1 month noting symptoms. 2. Patient appears euvolemic on exam, continue torsemide 20 mg daily. 3. Handicap placard information provided due to NYHA class of 3. 4. Continue to follow with device Clinic as scheduled. 5. Paroxysmal atrial fibrillation (HCC) -Paroxysmal atrial fibrillation diagnosed on AICD interrogation 07/2022-lasting 2 hours and 22 minutes. -[id number] score of 4 (female, CHF, HTN, DM) -No further episodes of paroxysmal AFib, tolerating anticoagulation well. 1. Continue Eliquis 5 mg twice daily and metoprolol as ordered. 6. Dyslipidemia, LDL goal below 100 LDL controlled, 82. 1. Continue Crestor 5 mg daily. The patient agrees to the above plan and will call with additional questions or concerns. ER with all emergencies advised. Follow-up: Return in about 6 months (around 03/08/2024). | Check-out note: Labs today. 6 mos JJB/AE I spent a total of 40 minutes on the date of service in preparation, delivery, and documentation ofthe care provided to Yesenia Hernández excluding any time spent in the performance of separatelybilled services. MARTINEZ Betancourt, Department of Cardiology This chart was completed in part utilizing [employer] Speech Voice Recognition Software. Grammatical errors, random word insertions, prounoun errors, and incomplete sentences are an occasional consequence of this system due to software limitations, ambient noise, and hardware issues. Any formal questions or concerns about the content, text, or information contained within the body of this dictation should be directly addressed to the provider for clarification. documented in this encounter Nursing Notes * Mary Faria CMA - 09/07/2023 8:52 AM EST Examination Room: 4 Name: Yesenia Hernández Date of : (1980) Reason for Visit: 6m Interim Hospitalization(s): none Problems/Concerns: denied Chest Pain/SOB: chest pain and feels like her heart is racing. Bp is fine during. Would get lightheaded and then have a headache. Hydroxyzine has helped a little My [employer] is a way you can talk to your provider online through e-mail. Would you like to sign up? I can activate it for you? ALREADY ACTIVE Patient was instructed to not get up on the exam table until directed and assisted by their provider; patient is to remain seated in the chair/ wheelchair/ exam table for fall prevention and safety reasons. Patient is aware to have assistance to step down off exam table with personnel. Patient voiced full comprehension of instructions. documented in this encounter Plan of Treatment Upcoming Encounters Date Type Department Care Team (Latest Contact Info) Description 09/07/2023 10:00 AM EST Laboratory Laboratory, [facility] [address] [place] [id number] [facility] [address] [place] [address] NICM (nonischemic cardiomyopathy) (HCC); HFrEF (heart failure with reduced ejection fraction) (HCC); FLNC-related myofibrillar myopathy; ICD (implantable cardioverter-defibril lator) in place; Paroxysmal atrial fibrillation (HCC); Dyslipidemia, goal LDL below 100 10/24/2023 1:40 PM EST Office Visit Family Medicine [address] [place] [phone] Zora Fonseca MD [address] [place] [address] [place] [address] 03/12/2024 9:30 AM EDT Office Visit Cardiology, [facility] [address] [place] [address] Terrie Sanchez CRNP [address] [facility] [place] [id number] 04/07/2024 9:30 AM EDT Cardiac Studies Cardiology, [facility] [address] [place] [address] [facility] [place] [address] 05/26/2024 8:30 AM EDT Office Visit Gynecology/Obstetri [address] [place] [address] Melinda Walls CRNP [address] [place] [id number] Pending Results Name Type Priority Associated Diagnoses Date /Time BASIC METABOLIC PANEL Lab Routine NICM (nonischemic cardiomyopathy) (HCC) HFrEF (heart failure with reduced ejection fraction) (HCC) FLNC-related myofibrillar myopathy ICD (implantable cardioverter-defibrillator ) in place Paroxysmal atrial fibrillation (HCC) Dyslipidemia, goal LDL below 100 09/07/2023 9:50 AM EST CBC Lab Routine NICM (nonischemic cardiomyopathy) (HCC) HFrEF (heart failure with reduced ejection fraction) (HCC) FLNC-related myofibrillar myopathy ICD (implantable cardioverter-defibrillator ) in place Paroxysmal atrial fibrillation (HCC) Dyslipidemia, goal LDL below 100 09/07/2023 9:50 AM EST Scheduled Orders Name Type Priority Associated Diagnoses Orde r Schedule EKG EKG Routine NICM (nonischemic cardiomyopathy) (HCC) FLNC-related myofibrillar myopathy ICD (implantable cardioverter-defibrillator) in place Paroxysmal atrial fibrillation (HCC) Dyslipidemia, goal LDL below 100 Ordered: 09/07/2023 BASIC METABOLIC PANEL Lab Routine NICM (nonischemic cardiomyopathy) (HCC) HFrEF (heart failure with reduced ejection fraction) (HCC) FLNC-related myofibrillar myopathy ICD (implantable cardioverter-defibrillator) in place Paroxysmal atrial fibrillation (HCC) Dyslipidemia, goal LDL below 100 Expected: 09/07/2023, Expires: 09/07/2024 CBC Lab Routine NICM (nonischemic cardiomyopathy) (HCC) HFrEF (heart failure with reduced ejection fraction) (HCC) FLNC-related myofibrillar myopathy ICD (implantable cardioverter-defibrillator) in place Paroxysmal atrial fibrillation (HCC) Dyslipidemia, goal LDL below 100 Expected: 09/07/2023, Expires: 09/07/2024 Health Maintenance Due Date Last Done Comments [...] Additional history exists Depression Screening 05/02/2024 05/02/2023 GFR 05/11/2024 05/11/2023, 07/, 09/20/2022, Additional history exists Albumin/Creatinine Ratio 07/18/2024 07/18/2021 Diabetes Screening 05/11/2026 05/11/2023, 0 05/06/2023, 03/21/2023, Additional history exists DTaP,Tdap,and Td Vaccines (2 [...] as of this encounter Visit Diagnoses Diagnosis NICM (nonischemic cardiomyopathy) (HCC)- Primary Other primary cardiomyopathies HFrEF (heart failure with reduced ejection fraction) (HCC) FLNC-related myofibrillar myopathy ICD (implantable cardioverter-defibrillator) in place Paroxysmal atrial fibrillation (HCC) Atrial fibrillation Dyslipidemia, goal LDL below 100 Other and unspecified hyperlipidemia NICM (nonischemic cardiomyopathy) (HCC) Other primary cardiomyopathies HFrEF (heart failure with reduced ejection fraction) (HCC) FLNC-related myofibrillar myopathy ICD (implantable cardioverter-defibrillator) in place Paroxysmal atrial fibrillation (HCC) Atrial fibrillation Dyslipidemia, goal LDL below 100 Other and unspecified hyperlipidemia documented in this encounter Advance Directives Latest [...] and were consensually agreed upon. Care Teams Dramatic Coach Relationship Specialty Start Date End Date Zora Fonseca MD [address] [place] [address] [place] [id number] PCP - General Family Medicine 07/16/18 documented as of this encounter"
--- OUTSIDE RECORDS SUMMARY | 2023-10-21 16:15 | External Medical Summary | Summary of Care ---
Author Name Unknown Organization [facility] Address [address] [place] [address] Phone [phone] Care Team Providers Care Inspector Eyeglass Frames Name Role Phone Zora Fonseca MD Primary Care Prov ider Reason for Visit * Reason Onset Date Comments Medication Refill 09/17/2023 Advice 09/17/2023 Encounter Details Date Type Department Care Team (Late st Contact Info) Description 09/17/2023 Telephone Nutrition & Weight Management, [place] [address] [place], [place] [id number] Ry Vora, PRICILA [address] [place], [place] [phone] Medication Refill; Advice Allergies No known active [...] 02/15/2023 Active Entresto 97-103 MG Oral Tablet (sacubitril-valsart an 97-103 mg per tab) TAKE BY MOUTH [...] Active Rosuvastatin Calcium 5 MG Oral Tablet (Crestor)Indication s:Dyslipidemia, goal LDL below 100 Take 1 Tablet by mouth in the morning. 90 Tablet 3 02/15/2023 Active Gabapentin 300 MG Oral Capsule (Neurontin)Indicati ons:Neuropathic pain,Numbness and tingling,DDD (degenerative disc disease), cervical Take 1 Capsule by mouth in the morning and 1 Capsule in the evening. 180 Capsule 3 05/02/2023 Active Levothyroxine Sodium 50 MCG Oral Tablet (Levoxyl)Indication s:Subclinical hypothyroidism,Hist ory of partial thyroidectomy TAKE 1 TABLET BY [...] 05/02/2023 Active hydrOXYzine HCl 25 MG Oral TabletIndications:P anic attack Take 1 Tablet by mouth every 6 hours as needed for Anxiety. 40 Tablet 0 07/26/2023 Active Escitalopram Oxalate 20 MG Oral Tablet (Lexapro)Indication s:REMY (generalized anxiety disorder) TAKE 1 TABLET BY MOUTH EVERY DAY IN THE MORNING 90 Tablet 3 08/07/2023 Active Metoprolol Succinate ER 50 MG Oral Tablet Extended Release 24 Hour (toPROL XL) Take 1.5 Tablets by mouth in the morning and 1.5 Tablets before bedtime. 270 Tablet 3 09/07/2023 Active Wegovy 2.4 MG/0.75ML Subcutaneous Solution Auto-injector (Semaglutide-Weight Management)Indicati ons:Class 3 severe obesity due to excess calories with serious comorbidity and body mass index (BMI) of 45.0 to 49.9 in adult (HCC),HFrEF (heart failure with reduced ejection fraction) (HCC),Idiopathic cardiomyopathy (HCC),Pseudotumor cerebri,Thyromegaly ,ICD (implantable cardioverter-defibr illator) in place,At risk for obstructive sleep apnea,NICM (nonischemic cardiomyopathy) (HCC) Inject 2.4 mg under the skin once a week. 9 mL 1 09/18/2023 Active Wegovy 2.4 MG/0.75ML Subcutaneous Solution Auto-injector (Semaglutide-Weight Management)Indicati ons:Class 3 severe obesity due to excess calories with serious comorbidity and body mass index (BMI) of 45.0 to 49.9 in adult (HCC),HFrEF (heart failure with reduced ejection fraction) (HCC),Idiopathic cardiomyopathy (HCC),Pseudotumor cerebri,Thyromegaly ,ICD (implantable cardioverter-defibr illator) in place,At risk for obstructive sleep apnea,NICM (nonischemic cardiomyopathy) ([facility]) Inject 2.4 mg (1 pen) under the skin once a week. 9 mL 1 09/17/2023 3 Discontinu ed(Refill) documented as of this encounter (statuses as [...] Note - Ry Vora DNP - 09/18/2023 1:48 PM ESTAddended by: RY VORA on: 09/18/2023 01:48 PM Modules accepted: Orders * Addendum Note - Ry Vora DNP [...] her Pharmacy. Thank you, Charisma Martinez CPhT Ticket Writer II [facility] ([facility]) 09/17/2023,1:32 PM documented in this encounter Plan of Treatment Upcoming Encounters Date Type Department Care Team (Late st Contact Info) Description 10/18/2023 10:00 AM EST Telemedicine Nutrition & Weight Management, [facility] [address] [place] [address] Rafy Simmons MD [address] [place] [address] 10/24/2023 1:40 PM EST Office Visit Family Medicine [address] [place] [phone] Zora Fonseca MD [address] [place] [address] [place] [address] 03/12/2024 9:30 AM EDT Office Visit Cardiology, [facility] [address] [place] [address] Terrie Sanchez CRNP [address] [place] [address] 04/07/2024 9:30 AM EDT Cardiac Studies Cardiology, [facility] [place] [address] [place], [facility] [address] [facility] [place] [address] 05/26/2024 8:30 AM EDT Office Visit Gynecology/Obstetrics [address] [place] [address] Melinda Walls CRNP [address] [place] [address] Health Maintenance Due Date Last Done Comments [...] (BMI) of 45.0 to 49.9 in adult (HCC)- Primary HFrEF (heart failure with reduced ejection fraction) (HCC) Idiopathic cardiomyopathy (HCC) Other primary cardiomyopathies Pseudotumor cerebri Benign intracranial hypertension Thyromegaly Goiter, unspecified ICD (implantable cardioverter-defibrillator) in place At risk for obstructive sleep apnea NICM (nonischemic cardiomyopathy) (HCC) Other primary cardiomyopathies documented in this encounter [...] and were consensually agreed upon. Care Teams Inspector Eyeglass Frames Relationship Specialty Start Date End Date Zora Fonseca MD [address] [place] [address] [place] [address] PCP - General Family Medicine 07/16/18 documented as of this encounter
--- OUTSIDE RECORDS SUMMARY | 2023-10-21 16:15 | External Medical Summary | Summary of Care ---
Author Name Unknown Organization [facility] Address [address] [place] [address] Phone [phone] Care Team Providers Care Warehouse Receiver Name Role Phone Zora Fonseca MD Primary Care Prov ider Reason for Visit * Reason Comments Weight Management Encounter Details Date Type Department Care Team (Latest Contact Info) Description 10/18/2023 10:00 AM EST Telemedicine Nutrition & Weight Management, [facility] [address] [facility] [address] Rafy Simmons MD [address] [place] [address] Abnormal weight gain*; Class 3 severe obesity due to excess calories with serious comorbidity and body mass index (BMI) of 45.0 to 49.9 in adult ([facility]); HFrEF (heart failure with reduced ejection fraction) ([facility]); Idiopathic cardiomyopathy ([facility]); Pseudotumor cerebri; Thyromegaly; ICD (implantable cardioverter-defibrilla tor) in place; At risk for obstructive sleep apnea; NICM (nonischemic cardiomyopathy) ([facility]) Allergies No known active allergiesdocumented as of this encounter (statuses as of 10/18/2023) Medications Medication Sig Dispensed Refills Start Date [...] 2.4 MG/0.75ML Subcutaneous Solution Auto-injector (Semaglutide-Weight Management)Indicati ons:Abnormal weight gain,Class 3 severe obesity due to excess calories with serious comorbidity and body mass index (BMI) of 45.0 to 49.9 in adult ([facility]) Inject 2.4 mg under the skin once a week for 12 doses. 3 mL 2 10/18/2023 4 Active Wegovy 1.7 MG/0.75ML Subcutaneous Solution Auto-injector (Semaglutide-Weight Management)Indicati ons:Class 3 severe obesity due to excess calories with serious comorbidity and body mass index (BMI) of 45.0 to 49.9 in adult ([facility]) INJECT 1.7 MG UNDER THE SKIN ONCE A WEEK FOR 28 DAYS. AFTER FINISHING 1 MG INJECTIONS DO NOT START BEFORE FEBRUARY 05, 2023. 3 mL 0 08/06/2023 4 Discontinu ed(Medicat ion List Clean Up) Wegovy 2.4 MG/0.75ML Subcutaneous Solution Auto-injector (Semaglutide-Weight Management)Indicati ons:Class 3 severe obesity due to excess calories with serious comorbidity and body mass index (BMI) of 45.0 to 49.9 in adult ([facility]),HFrEF (heart failure with reduced ejection fraction) ([facility]),Idiopathic cardiomyopathy ([facility]),Pseudotumor cerebri,Thyromegaly ,ICD (implantable cardioverter-defibr illator) in place,At risk for obstructive sleep apnea,NICM (nonischemic cardiomyopathy) ([facility]) Inject 2.4 mg under the skin once a week. 9 mL 1 09/21/2023 4 Discontinu ed(Refill) documented as of this encounter (statuses as of 10/18/2023) Active Problems Problem Noted Date Diagnosed Date [...] as of this encounter (statuses as of 10/18/2023) Resolved Problems Problem Noted Date Diagnosed Date [...] as of this encounter (statuses as of 10/18/2023) Immunizations Name Administration Dates Next Due PPD [...] Sign Reading Time Taken Comments Blood Pressure - - Pulse - - Temperature - - Respiratory Rate - - Oxygen Saturation - - Inhaled Oxygen Concentration - - Weight 126.6 kg (279 lb) 10/18/2023 9:58 AM EST Height - - Body Mass Index 47.89 04/02/2023 11:56 AM EDT documented in this [...] as of this encounter Progress Notes * Rafy Simmons MD - 10/18/2023 9:53 AM EST Comprehensive Weight Management Clinic Note Patient location: HOME. I was in a hospital or clinic location. After connecting through televideo,patient was verified with two unique identifiers. Patient (or authorized legal termite control service representative) was then informed that this was a Telemedicine visit and being conducted confidentially over secure lines. Methods to assure confidentiality were taken. Patient acknowledged consent and understanding of pr ivacy and security of the Telemedicine visit. The patient agreed to participate. Yesenia Hernández presents in follow up to the comprehensive weight management clinic. 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 Her weight at that time was 297 lbs. Wt Readings from Last 6 Encounters: 10/18/23 126.6 kg (279 lb) 09/07/23 129.3 kg (285 lb) 07/18/23 125.6 kg (277 lb) 05/11/23 126 kg (277 lb 11.2 oz) 05/10/23 123.8 kg (273 lb) 05/02/23 128.6 kg (283 lb 9.6 oz) The patient was last seen in this clinic 05/2023, she weighed 277 lbs Today, she weighs 279 lbs, her weight has increased 2 pounds. The patient's total weight change is -18 pounds. Ms. Hernández presents for a follow up visit. Unfortunately, she has gained weight since her last visit. She is currently prescribed wegovy 2.4mgand has taken 4 shots of the injection so far. She was unable to get the medication filled and so was without the medication for a few months due to insurance issues. She believes this may be the cause of her weight gain. Since her initial consultation, patient has made significant changes to her diet and lifestyle. Sheis more cognizant of the foods that she is eating and has cut out fast food from her diet. She is limited in her exercise capability due to her hx of heart failure. At today's follow-up visit, patient would like to receive counseling regarding healthy diet and lifestyle interventions she can make to help with abnormal weight gain. Review of Systems: The patient denies any chest pain, shortness of breath, palpitations or ankle edema. Since her lastvisit there have been no problems with Abdominal pain / cramps, Anxiety / nervousness, Binge Eating, and Depression. Current Medications: Current Outpatient Medications Medication Sig Dispense Refill Wegovy 2.4 MG/0.75ML Subcutaneous Solution Auto-injector (Semaglutide-Weight Management) Inject 2.4mg under the skin once a week for 12 doses. 3 mL 2 Levonorgestrel 20 MCG/24HR Intrauterine Intrauterine Device Insert [...] as needed for Anxiety. 40 Tablet 0 Escitalopram Oxalate 20 MG Oral Tablet (Lexapro) TAKE 1 TABLET BY MOUTH EVERY DAY IN THE MORNING 90Tablet 3 Metoprolol Succinate ER 50 MG Oral Tablet Extended Release 24 Hour (toPROL XL) Take 1.5 Tablets by mouth in the morning and 1.5 Tablets before bedtime. 270 Tablet 3 No current facility-administered medications for this visit. Water intake: yes Prescribed diet: [id number] Calorie Controlled Current diet: Breakfast - Skips Lunch - Skips Dinner - Pot roast Snack - Rice cakes, cucumbers or carrots Drinks - Ivonne bottle Meals Away from Home - Rare Food logs: No Type of exercise: Walking Weight loss Pharmacotherapy: Wegovy 2.4mg Wt 126.6 kg (279 lb) | BMI 47.89 kg/m | BSA 2.39 m PHYSICAL EXAMINATION: Telemed visit General: Patient is in no acute distress, +overweight Assessment and Plan: 42-year-old female who presents for a follow up visit regarding abnormal weight gain, her Body massindex is 47.89 kg/m. Classifying her as having Morbid obesity #Abnormal Weight Gain #Morbid Obesity BMI 48, prescribed wegovy 2.4mg - Continue wegovy as prescribed - Counseled extensively on healthy diet and lifestyle interventions - Patient encouraged to track daily caloric intake using apps such as DangDang[employer], or LOSE IT! - Increase protein intake to 1 gram/kg for a minimum of 100g daily - Decrease carbohydrate intake and increase proportions of protein:carbs in every meal - Discussed the myplate method with patient - Increase fluid intake to 64 fluid oz daily, minimum - Handouts regarding nutrition and physical activity were provided, as appropriate. - Encouraged daily exercise including a minimum of 30 mins/ 3 days a week - RTC in 3 months in person or via telehealth #HFrEF - Jardiance, eliquis, entresto, metoprolol, aldactone, torsemide #Hypothyroidism - Levothyroxine #HLD - Crestor #MDD/REMY - Lexapro, hydroxyzine #GERD - PPI The patient agreed to try the plan as discussed and return in 3 months. They were encouraged to call or send a patient portal message in the meantime with any questions or concerns prior to their next clinic visit. I spent a total of 20-29 minutes (exact time 28 mins) on the date of service in preparation, delivery, and documentation of the care provided to Yesenia Hernández excluding any time spent in the performance of separately billed services. This included but was no limited to providing counseling about the benefits of weight loss, about their nutritional status, detailed explanations about calorie count, types of nutrients to choose, and composition of the meals. Motivational interview provided in order to prepare the patient to achieve future goals. Rafy Simmons MD documented in this encounter Plan of Treatment Upcoming Encounters Date Type Department Care Team (Late st Contact Info) Description 10/24/2023 1:40 PM EST Office Visit Family Medicine [address] [place] [phone] Zora Fonseca MD [address] [place] [address] [place] [address] 11/15/2023 3:30 PM EST Office Visit Interventional Pain Center, [facility] [address] [place] [address] Cindy Michaels PA-C [address] [place] [address] 03/12/2024 9:30 AM EDT Office Visit Cardiology, [facility] [address] [place] [address] Terrie Sanchez CRNP [address] [place] [address] 04/07/2024 9:30 AM EDT Cardiac Studies Cardiology, [facility] [address] [place] [address] [facility] [address] [place] [address] 05/26/2024 8:30 AM EDT Office Visit Gynecology/Obstetrics [address] [place] [address] Melinda Walls CRNP [address] [place] [address] Health Maintenance Due Date Last Done Comments [...] as of this encounter Visit Diagnoses Diagnosis Abnormal weight gain- Primary Class 3 severe obesity due to excess calories with serious comorbidity and body mass index (BMI) of 45.0 to 49.9 in adult (HCC) HFrEF (heart failure with reduced ejection fraction) (HCC) Idiopathic cardiomyopathy (HCC) Other primary cardiomyopathies Pseudotumor cerebri Benign intracranial hypertension Thyromegaly Goiter, unspecified ICD (implantable cardioverter-defibrillator) in place At risk for obstructive sleep apnea NICM (nonischemic cardiomyopathy) ([facility]) Other primary cardiomyopathies documented in this encounter [...] and were consensually agreed upon. Care Teams Warehouse Receiver Relationship Specialty Start Date End Date Zora Fonseca MD [address] [place] [address] [place] [id number] PCP - General Family Medicine 07/16/18 documented as of this encounter"
--- OUTSIDE RECORDS SUMMARY | 2023-10-21 16:15 | External Medical Summary | Summary of Care ---
Author Name Unknown Organization [facility] Address [address] [place] [address] Phone [phone] Care Team Providers Care Cotton Farmer Name Role Phone Zora Fonseca MD Primary Care Prov ider Reason for Visit * Reason Onset Date Comments Advice 08/21/2023 Encounter Details Date Type Department Care Team (Late st Contact Info) Description 08/21/2023 Telephone Nutrition & Weight Management, [place] [address] [place] [address] Anusha Vora, [facility] [address] [place], [place] [phone] Advice Allergies No known active allergiesdocumented as of this encounter (statuses as of 08/22/2023) Medications Medication Sig Dispensed Refills Start Date [...] the morning. 90 Tablet 3 02/15/2023 Active Metoprolol Succinate ER 50 MG Oral Tablet Extended Release 24 Hour (toPROL XL) Take 1 Tablet by mouth in the morning and 1 Tablet before bedtime. 180 Tablet 3 02/15/2023 Active Torsemide 20 MG [...] at bedtime. 90 Tablet 5 05/02/2023 Active Ozempic (1 MG/DOSE) 4 MG/3ML Subcutaneous Solution Pen-injector (Semaglutide (1 MG/DOSE)) Inject 1 mg under the skin once a week. 3 mL 0 07/23/2023 Active hydrOXYzine HCl 25 MG Oral TabletIndications:P anic attack Take 1 Tablet by mouth every 6 hours as needed for Anxiety. 40 Tablet 0 07/26/2023 Active Wegovy 1.7 MG/0.75ML Subcutaneous Solution Auto-injector (Semaglutide-Weight Management)Indicati ons:Class 3 severe obesity due to excess calories with serious comorbidity and body mass index (BMI) of 45.0 to 49.9 in adult ([facility]) INJECT 1.7 MG UNDER THE SKIN ONCE A WEEK FOR 28 DAYS. AFTER FINISHING 1 MG INJECTIONS DO NOT START BEFORE FEBRUARY 05, 2023. 3 mL 0 08/06/2023 09/03/2023 Active Escitalopram Oxalate 20 MG Oral Tablet (Lexapro)Indication s:REMY (generalized anxiety disorder) TAKE 1 TABLET BY MOUTH EVERY DAY IN THE MORNING 90 Tablet 3 08/07/2023 Active documented as of this encounter (statuses as of 08/22/2023) Active Problems Problem Noted Date Diagnosed Date [...] as of this encounter (statuses as of 08/22/2023) Resolved Problems Problem Noted Date Diagnosed Date [...] as of this encounter (statuses as of 08/22/2023) Immunizations Name Administration Dates Next Due PPD [...] as of this encounter Miscellaneous Notes * Telephone Encounter - Anusha Vora DNP - 08/21/2023 4:00 PM EST Will send myG message. Would not advise restarting at 2.4. Anusha Vora DNP, MARTINEZ * Telephone Encounter - Veronica Aleman LPN - 08/21/2023 11:46 AM EST Pt calling about wegovy RX. In Jun, she had lost her insurance, now she has new insurance, same company but a different plan. During her time of not having insurance she had to stop the Wegovy. Provider tried to bridge her to Ozempix put it was not covered, no prior auth was ever obtained. So she has been off all wt lost injectable meds since Jun. Now that she has new insurance she would like to restart. Problem is the Wegovy 1.7 dose is out of stock. Pharm indicates a national shortage, with unknown date of availably. Prior to stopping the wegovy she was on the 2.4 dose. She is inquiring if she can go back to the 2.4 mg dose instead of starting over at the lower 1.7 dose? If this is ok, please send a new RX for the 2.4 dose to the pharm. Please advise. documented in this encounter Plan of Treatment Upcoming Encounters Date Type Department Care Team (Late st Contact Info) Description 09/07/2023 9:00 AM EST Office Visit Cardiology, [facility] [address] [place] [address] Terrie Sanchez CRNP [address] [place] [address] 09/26/2023 1:20 PM EST [facility] [address] [place] [address] Linda Penn MD [address] [place], [place] [phone] 10/24/2023 1:40 PM EST Office Visit Family Medicine [address] [place] [phone] Zora Fonseca MD [address] [place] [address] [place] [address] 04/07/2024 9:30 AM EDT Cardiac Studies Cardiology, [facility] [address] [place] [address] [place], [facility] [address] [address] 05/26/2024 8:30 AM EDT Office Visit Gynecology/Obstetrics [address] [place] [address] Melinda Walls CRNP [address] [place] [address] Health Maintenance Due Date Last Done Comments [...] Depression Screening 05/02/2024 05/02/2023 GFR 05/11/2024 05/11/2023, 04/09, 09/20/2022, Additional history exists Albumin/Creatinine Ratio 07/18/2024 [...] and were consensually agreed upon. Care Teams Cotton Farmer Relationship Specialty Start Date End Date Zora Fonseca MD [address] [place] [address] [place] [address] PCP - General Family Medicine 07/16/18 documented as of this encounter
--- OUTSIDE RECORDS SUMMARY | 2023-10-21 16:15 | External Medical Summary | Summary of Care ---
Author Name Unknown Organization [facility] Address [address] [place] [address] Phone [phone] Care Team Providers Care Tin Roofer Name Role Phone Zora Fonseca MD Primary Care Prov ider Reason for Visit * Reason Comments Precert Approved Wegovy Encounter Details Date Type Department Care Team (Late st Contact Info) Description 08/06/2023 Telephone Nutrition & Weight Management, [place] [address] [place], [place] [phone] Ry [facility], [facility] [address] [place], [place] [phone] Precert Approved (Wegovy) Allergies No known active allergiesdocumented as of [...] 3 Active Entresto 97-103 MG Oral Tablet (sacubitril-valsar harper 97-103 mg per tab) TAKE BY MOUTH 1 TABLET IN THE MORNING AND 1 TABLET BEFORE BEDTIME. 180 Tablet 3 3 Active Empagliflozin 10 MG Oral Tablet (Jardiance) Take 1 Tablet by mouth in the morning. 90 Tablet 3 3 Active Spironolactone 25 MG Oral Tablet (Aldactone) Take 1 Tablet by mouth in the morning. 90 Tablet 3 3 Active Metoprolol Succinate ER 50 MG Oral Tablet Extended Release 24 Hour (toPROL XL) Take 1 Tablet by mouth in the morning and 1 Tablet before bedtime. 180 Tablet 3 3 Active Torsemide 20 MG Oral Tablet (Demadex) Take 1 Tablet by mouth in the morning. Take an additional tablet as needed. 200 Tablet 3 3 Active Rosuvastatin Calcium 5 MG Oral Tablet (Crestor)Indicatio ns:Dyslipidemia, goal LDL below 100 Take 1 Tablet by mouth in the morning. 90 Tablet 3 3 Active Gabapentin 300 MG Oral Capsule (Neurontin)Indicat ions:Neuropathic pain,Numbness and tingling,DDD (degenerative disc disease), cervical Take 1 Capsule by mouth in the morning and 1 Capsule in the evening. 180 Capsule 3 3 Active Levothyroxine Sodium 50 MCG Oral Tablet (Levoxyl)Indicatio ns:Subclinical hypothyroidism,His tory of partial thyroidectomy TAKE 1 TABLET BY [...] at bedtime. 90 Tablet 5 3 Active Ozempic (1 MG/DOSE) 4 MG/3ML Subcutaneous Solution Pen-injector (Semaglutide (1 MG/DOSE)) Inject 1 mg under the skin once a week. 3 mL 0 3 Active hydrOXYzine HCl 25 MG Oral TabletIndications: Panic attack Take 1 Tablet by mouth every 6 hours as needed for Anxiety. 40 Tablet 0 3 Active Wegovy 1.7 MG/0.75ML Subcutaneous Solution Auto-injector (Semaglutide-Weigh t Management)Indicat ions:Class 3 severe obesity due to excess calories with serious comorbidity and body mass index (BMI) of 45.0 to 49.9 in adult (HCC) INJECT 1.7 MG UNDER THE SKIN ONCE A WEEK FOR 28 DAYS. AFTER FINISHING 1 MG INJECTIONS DO NOT START BEFORE FEBRUARY 05, 2023. 3 mL 0 3 09/03/20 23 Active Escitalopram Oxalate 20 MG Oral Tablet (Lexapro)Indicatio ns:REMY (generalized anxiety disorder) TAKE 1 TABLET BY MOUTH EVERY DAY IN THE MORNING 90 Tablet 1 3 08/07/20 Discontinued documented as of this encounter (statuses [...] Above, IM , (FLULAVAL or FLUZONE) 09/10/2020,06/28/2018,07/30/2017 Seasonal Influenza, Split, I IV3, With [...] encounter Miscellaneous Notes * Telephone Encounter - Nimisha Nevarez PHARM Tech - 08/21/2023 11:31 AM EST Patient calling to inform doctor that the patient's insurance will not pay for this medication without a completed prior authorization. Did confirm this information with the pharmacy. Pt's current insurance information is as follows: Patient name: Yesenia Hernández ID number: [id number] BIN number: [id number] PCN number: Group number: [id number] Subscriber name: Yesenia Hernández Primary or Secondary Insurance:Primary Medication: Wegovy 1.7 MG/0.75ML Subcutaneous Solution Auto-injector (Semaglutide-Weight Management) Reason for Request: needs pa Pharmacy and phone number: [facility] #[id number] [facility] [place] Rx plan and phone number: [phone] Is this a new medication for the patient? No. How did the patient obtain the medication on the lastfill? The patient used a different insurance last time. They used blue [employer] blue shield. What alternative medications does the pharmacy have in stock?: n/a Nimisha Bee French Weaver [facility] ([facility]) 08/21/2023,11:31 AM * Telephone Encounter - Ry Vora DNP - 08/06/2023 12:29 PM EDTSigned Prescriptions: Disp Refills Wegovy 1.7 MG/0.75ML Subcutaneous Solution*3 mL 0 Sig: INJECT 1.7 MG UNDER THE SKIN ONCE A WEEK FOR 28 DAYS. AFTER FINISHING 1 MG INJECTIONS DO NOT START BEFORE 2022.Authorizing Provider: RY VORA documented in this encounter Plan of Treatment Upcoming Encounters Date Type Department Care Team (Late st Contact Info) Description 09/07/2023 9:00 AM EST Office Visit Cardiology, [facility] [address] [place] [address] Terrie Sanchez CRNP 132 [facility] [place] [address] 09/26/2023 1:20 PM EST Telemedicine Nutrition & Weight Management, [place] [address] [place] [address] Linda Penn MD [address] [place] [address] 10/24/2023 1:40 PM EST Office Visit Family Medicine [address] [phone] Zora Fonseca MD [address] [place] [address] [place] [address] 04/07/2024 9:30 AM EDT Cardiac Studies Cardiology, [facility] [address] [place] [address] [place] [facility] [address] [place] [address] 05/26/2024 8:30 AM EDT Office Visit Gynecology/Obstetrics [address] [place] [address] Melinda Walls CRNP [address] [place] [address] Health Maintenance Due Date Last Done Comments [...] 07/30/2017, Additional history exists TSH 05/01/2024 05/01/2023, 0503/2022, 01/28/2022, Additional history exists Depression Screening 05/02/2024 [...] of 45.0 to 49.9 in adult (HCC) documented in this encounter Advance Directives Latest [...] and were consensually agreed upon. Care Teams Tin Roofer Relationship Specialty Start Date End Date Zora Fonseca MD [address] [place] [address] [place] [address] PCP - General Family Medicine 07/16/18 documented as of this encounter
--- OUTSIDE RECORDS SUMMARY | 2023-10-21 16:15 | External Medical Summary ---
Author Name Unknown Address Unknown Organization [facility] [place] [address] [place] [address] Laboratory Report Ordering Provider Test Date Status OMID TOMPKINS 09/07/2023 09:50:36 Final Observation Date Value Abnormality Reference (Units ) Status WBC, Total 09/07/2023 09:50:36 10.67 4.00-10.8 0 (K/uL) Final RBC 09/07/2023 09:50:36 4.55 3.85-5.15 (M/uL) Final Hemoglobin 09/07/2023 09:50:36 14.0 12.0-15.3 (g/dL) Final HCT 09/07/2023 09:50:36 41.8 36.0-45.2 (%) Final MCV 09/07/2023 09:50:36 91.9 81.5-97.5 (fL) Final MCH 09/07/2023 09:50:36 30.8 27.0-34.0 (pg) Final MCHC 09/07/2023 09:50:36 33.5 32.0-36.0 (g/dL) Final RDW 09/07/2023 09:50:36 13.2 11.5-15.5 (%) Final Platelets 09/07/2023 09:50:36 241 140-400 (K /uL) Final MPV 09/07/2023 09:50:36 10.7 6.6-11.1 ( fL) Final Performing Location [facility] [address] [place] [address]
--- OUTSIDE RECORDS SUMMARY | 2023-10-21 16:15 | External Medical Summary | Summary of Care ---
Author Name Unknown Organization [facility] Address [address] [place] [address] Phone [phone] Care Team Providers Care Roll Wrapper Name Role Phone Zora Fonseca MD Primary Care Prov ider Reason for Visit * Reason Onset Date Comments Medication Refill 09/21/2023 Encounter Details Date Type Department Care Team (Late st Contact Info) Description 09/21/2023 Refill Nutrition & Weight Management, [place] [address] [place], [place] [phone] Anusha Vora, [facility] [address] [place], [place] [phone] Class 3 severe obesity due to excess calories with serious comorbidity and body mass index (BMI) of 45.0 to 49.9 in adult ([facility]); HFrEF (heart failure with reduced ejection fraction) ([facility]); Idiopathic cardiomyopathy ([facility]); Pseudotumor cerebri; Thyromegaly; ICD (implantable cardioverter-defibrillator ) in place; At risk for obstructive sleep apnea; NICM (nonischemic cardiomyopathy) ([facility]) Allergies No known active allergiesdocumented as of [...] (HCC),HFrEF (heart failure with reduced ejection fraction) ([facility]),Idiopathic cardiomyopathy (HCC),Pseudotumor cerebri,Thyromegaly ,ICD (implantable cardioverter-defibr illator) in place,At risk for obstructive sleep apnea,NICM (nonischemic cardiomyopathy) ([facility]) Inject 2.4 mg under the skin once a week. 9 mL 1 09/21/2023 Active Wegovy 2.4 MG/0.75ML Subcutaneous Solution Auto-injector (Semaglutide-Weight Management)Indicati ons:Class 3 severe obesity due to excess calories with serious comorbidity and body mass index (BMI) of 45.0 to 49.9 in adult (HCC),HFrEF (heart failure with reduced ejection fraction) (HCC),Idiopathic cardiomyopathy (HCC),Pseudotumor cerebri,Thyromegaly ,ICD (implantable cardioverter-defibr illator) in place,At risk for obstructive sleep apnea,NICM (nonischemic cardiomyopathy) ([facility]) Inject 2.4 mg (1 pen) under the skin once a week. 9 mL 1 09/18/2023 3 Discontinu ed(Refill) documented as of this [...] encounter Miscellaneous Notes * Telephone Encounter - Kaye Bennett [facility] - 09/21/2023 4:18 PM EST Forwarding Wegovy prescription to [facility] per patient's request. Kaye Bennett, Pharm.D. Specialty Medication Pharmacist [facility] 09/21/2023, 4:18 PM Electronically signed by Kaye Bennett [facility] at 09/21/2023 4:19 PM EST documented in this encounter Plan of Treatment Upcoming Encounters Date Type Department Care Team (Late st Contact Info) Description 10/18/2023 10:00 AM EST Telemedicine Nutrition & Weight Management, [facility] [address] [place] [address] Rafy Simmons [facility] [address] [facility] [address] 10/24/2023 1:40 PM EST Office Visit Family Medicine [address] [place] [phone] Zora Fonseca MD [address] [place] [address] [place] [address] 03/12/2024 9:30 AM EDT Office Visit Cardiology, [facility] 132 [facility] [place] [address] Terrie Sanchez CRNP [facility] [place] [address] 04/07/2024 9:30 AM EDT Cardiac Studies Cardiology, [facility] 132 [facility] [place] [address] [place] [facility] [place] [address] 05/26/2024 8:30 AM EDT Office Visit Gynecology/Obstetrics [address] [place] [address] Melinda Walls CRNP [address] [place] [address] Health Maintenance Due Date Last Done Comments [...] and were consensually agreed upon. Care Teams Roll Wrapper Relationship Specialty Start Date End Date Zora Fonseca MD [address] [place] [address] [place] [address] PCP - General Family Medicine 07/16/18 documented as of this encounter
--- OUTSIDE RECORDS SUMMARY | 2023-10-21 16:15 | External Medical Summary | Summary of Care ---
Author Name Unknown Organization [facility] Address [address] [place] [address] Phone [phone] Care Team Providers Care Picker Operator Name Role Phone Zora Fonseca MD Primary Care Prov ider Reason for Visit * Reason Onset Date Comments Medication Refill 09/17/2023 Advice 09/17/2023 Encounter Details Date Type Department Care Team (Late st Contact Info) Description 09/17/2023 Telephone Nutrition & Weight Management, [place] [address] [place], [place] [phone] Anusha Vora, [place] [address] [place], [place] [phone] Medication Refill; Advice Allergies No known active [...] encounter Miscellaneous Notes * Telephone Encounter - Marialuisa Lee OSA - 09/17/2023 1:40 PM EST Pt would like to speak with nurse about Wegovy dosage * Telephone Encounter - Anusha Vora DNP - 09/17/2023 1:40 PM EST Order sent - may be autorouted to specialty pharmacy Anusha Vora DNP, CRNP * Telephone Encounter - Charisma Martinez CPhT - 09/17/2023 1:28 PM EST Pt calling stating doctor needs to send new rx for Wegovy 2.4 mg dose. Pt stated she had completed Wegovy 1.7 MG/0.75ML Subcutaneous Solution Auto-injector (Semaglutide-Weight Management) and needs the new dose send over to her Pharmacy. Thank you, Charisma Martinez CPhT Donor Specialist II [facility] ([facility]) (Formerly Telepharmacy) 09/17/2023,1:32 PM documented in this encounter Plan of Treatment Upcoming Encounters Date Type Department Care Team (Late st Contact Info) Description 10/18/2023 10:00 AM EST Telemedicine Nutrition & Weight Management, [facility] 132 [facility] [place] [address] Rafy Simmons MD [address] [place] [phone] 10/24/2023 1:40 PM EST Office Visit Family Medicine [address] [place] [phone] Zora Fonseca MD [address] [place] [address] [place] [address] 03/12/2024 9:30 AM EDT Office Visit Cardiology, [facility] 132 [facility] [place] [address] Terrie Sanchez CRNP 132 [facility] [place] [address] 04/07/2024 9:30 AM EDT Cardiac Studies Cardiology, [facility] 132 [facility] [place] [address] [facility] 132 [facility] [place] [address] 05/26/2024 8:30 AM EDT Office Visit Gynecology/Obstetrics [address] [place] [address] Melinda Walls CRNP [address] [place] [address] Health Maintenance Due Date Last Done Comments [...] and were consensually agreed upon. Care Teams Picker Operator Relationship Specialty Start Date End Date Zora Fonseca MD [address] [place] [address] [place] [address] PCP - General Family Medicine 07/16/18 documented as of this encounter
--- OUTSIDE RECORDS SUMMARY | 2023-10-21 16:15 | External Medical Summary | Summary of Care ---
Author Name Unknown Organization [facility] Address [address] [place] [address] Phone [phone] Care Team Providers Care Can Filling Machine Operator Name Role Phone Zora Fonseca MD Primary Care Prov ider Reason for Visit * Reason Comments Precert In Process [address] [employer] Wegov y Encounter Details Date Type Department Care Team (Late st Contact Info) Description 08/06/2023 Telephone Nutrition & Weight Management, [place] [address] [place], [place] [phone] Ry Vora, [facility] [address] [place], [place] [phone] Precert In Process ([address] [email or web address]) Allergies No known active allergiesdocumented as of this encounter (statuses as of 08/21/2023) Medications Medication Sig Dispensed Refills Start Date [...] (BMI) of 45.0 to 49.9 in adult ([facility]) INJECT 1.7 MG UNDER THE SKIN ONCE A WEEK FOR 28 DAYS. AFTER FINISHING 1 MG INJECTIONS DO NOT START BEFORE FEBRUARY 05, 2023. 3 mL 0 3 09/03/20 23 Active Escitalopram Oxalate 20 MG Oral Tablet (Lexapro)Indicatio ns:REMY (generalized anxiety disorder) TAKE 1 TABLET BY MOUTH EVERY DAY IN THE MORNING 90 Tablet 1 3 08/07/20 23 Discontinued documented as of this encounter (statuses as of 08/21/2023) Active Problems Problem Noted Date Diagnosed Date [...] as of this encounter (statuses as of 08/21/2023) Resolved Problems Problem Noted Date Diagnosed Date [...] as of this encounter (statuses as of 08/21/2023) Immunizations Name Administration Dates Next Due PPD [...] follows: Patient name: Yesenia Hernández ID number: [id number] BIN number: [id number] PCN number: Group number: [id number] Subscriber name: Yesenia Hernández Primary or Secondary Insurance:Primary Medication: Wegovy 1.7 MG/0.75ML Subcutaneous Solution Auto-injector (Semaglutide-Weight Management) Reason for Request: needs pa Pharmacy and phone number: [id number] [facility] [place] Rx plan and phone number: [phone] Is this a new medication for the patient? No. How did the patient obtain the medication on the lastfill? The patient used a different insurance last time. They used blue [employer] blue shield. What alternative medications does the pharmacy have in stock?: n/a Nimisha Bee Videotape Recording Engineer [facility] ([facility]) 08/21/2023,11:31 AM [...] 09/07/2023 9:00 AM EST Office Visit Cardiology, [facility] 132 [place] [address] Terrie Sanchez CRNP 132 [facility] [place] [address] 09/26/2023 1:20 PM EST Telemedicine Nutrition & Weight Management, [place] [address] [place] [address] Linda Penn MD [address] [facility] [place] [address] 10/24/2023 1:40 PM EST Office Visit Family [address] [phone] Zora Fonseca MD [address] [place] [address] [place] [address] 04/07/2024 9:30 AM EDT Cardiac Studies Cardiology, [facility] [address] [place] [address] [place], [facility] [address] [place] [address] 05/26/2024 8:30 AM EDT Office Visit Gynecology/Obstetrics [address] [place] [address] Melinda Walls CRNP [address] [place] [address] Health Maintenance Due Date Last Done Comments [...] and were consensually agreed upon. Care Teams Can Filling Machine Operator Relationship Specialty Start Date End Date Zora Fonseca MD [address] [place] [address] [place] [address] PCP - General Family Medicine 07/16/18 documented as of this encounter
--- OUTSIDE RECORDS SUMMARY | 2023-10-21 16:15 | External Medical Summary | Summary of Care ---
Author Name Unknown Organization [facility] Address [address] [place] [address] Phone [phone] Care Team Providers Care Payroll Lead Name Role Phone Zora Fonseca MD Primary Care Prov ider Reason for Visit * Reason Comments Precert Approved Wegovy Encounter Details Date Type Department Care Team (Late st Contact Info) Description 08/06/2023 Telephone Nutrition & Weight Management, [place] [address] [place], [place] [phone] Ry Vora, [facility] [address] [place], [place] [phone] Precert Approved (Wegovy) Allergies No known active [...] encounter Miscellaneous Notes * Telephone Encounter - Ale Sterling OSA - 08/22/2023 10:37 AM EST New or re-auth: New authorization Approved/Denied: Approved Drug Name and Formulation: Wegovy 1.7 MG/0.75ML Subcutaneous Solution Auto- injector (Semaglutide-Weight Management) How Prescribed(directions/sig): weekly Day Supply: 01/02 Did you receive insurance information from outside the chart? No, received insurance information within the chart Valid auth start date: 07/30/2023 Valid auth end date: 02/19/2024 Rx Insurance Info: arabella [place] Reference #: Rx Benefits Verified through/on date: epic 08/22/2023 Referral (TE) received from: Prescribing [facility] Medication Handle Maker III P: [phone] F: [phone] 08/22/23,10:32 AM * Telephone Encounter - Nimisha Nevarez PHARM Tech - 08/21/2023 11:31 AM EST Patient calling to inform doctor that the patient's insurance will not pay for this medication without a completed prior authorization. Did confirm this information with the pharmacy. Pt's current insurance information is as follows: Patient name: Yesenia Hernández ID number: [id number] BIN number: [id number] PCN number: Group number: [id number] Subscriber name: Yesenia Hernández Primary or Secondary Insurance:Primary Medication: Wegovy 1.7 MG/0.75ML Subcutaneous Solution Auto-injector (Semaglutide-Weight Management) Reason for Request: [facility] Pharmacy and phone number: [facility] #[id number] Rx plan and phone number: [phone] Is this a new medication for the patient? No. How did the patient obtain the medication on the lastfill? The patient used a different insurance last time. They used [employer]. What alternative medications does the pharmacy have in stock?: n/a Nimisha Bee Aircraft Maintenance Engineer [facility] ([facility]) 08/21/2023,11:31 [...] 09/07/2023 9:00 AM EST Office Visit Cardiology, [facility] [address] [place] [address] Terrie Sanchez CRNP 132 [place] [address] 09/26/2023 1:20 PM EST Telemedicine Nutrition & Weight Management, [place] [address] [place] [address] Linda Penn MD [address] [place], [place] [phone] 10/24/2023 1:40 PM EST Office Visit Family Medicine [address] [place] [phone] Zora Fonseca MD [address] [place] [address] [place] [address] 04/07/2024 9:30 AM EDT Cardiac Studies Cardiology, [facility] [address] [place] [address] [facility] [address] [place] [address] 05/26/2024 8:30 AM EDT Office Visit Gynecology/Obstetrics [address] [place] [address] Melinda Walls CRNP [address] [place] [address] Health Maintenance Due Date Last Done Comments [...] and were consensually agreed upon. Care Teams Payroll Lead Relationship Specialty Start Date End Date Zora Fonseca MD [address] [place] [address] [place] [phone] PCP - General Family Medicine 07/16/18 documented as of this encounter
--- OUTSIDE RECORDS SUMMARY | 2023-10-21 16:15 | External Medical Summary | Summary of Care ---
Author Name Unknown Organization [facility] Address [address] [place] [address] Phone [phone] Care Team Providers Care Seed Technician Name Role Phone Zora Fonseca MD Primary Care Prov ider Reason for Visit * Reason Comments Outpatient Testing Encounter Details Date Type Department Care Team (Late st Contact Info) Description 09/07/2023 10:00 AM EST Laboratory Laboratory, [facility] [address] [place] [address] [facility] [address] [place] [address] NICM (nonischemic cardiomyopathy) ([facility]); HFrEF (heart failure with reduced ejection fraction) ([facility]); FLNC-related myofibrillar myopathy; ICD (implantable cardioverter-defibrill ator) in place; Paroxysmal atrial fibrillation ([facility]); Dyslipidemia, goal LDL below 100 Allergies No [...] (BMI) of 45.0 to 49.9 in adult ([facility]) INJECT 1.7 MG UNDER THE SKIN ONCE A WEEK FOR 28 DAYS. AFTER FINISHING 1 MG INJECTIONS DO NOT START BEFORE FEBRUARY 05, 2023. 3 mL 0 08/06/2023 09/07/2023 Active Escitalopram Oxalate 20 MG Oral Tablet [...] No 11/04/2018 documented as of this encounter Plan of Treatment Upcoming Encounters Date Type Department Care Team (Late st Contact Info) Description 10/24/2023 1:40 PM EST Office Visit Family Medicine [address] [place] [address] Zora Fonseca MD [address] [place] [address] [place] [address] 03/12/2024 9:30 AM EDT Office Visit Cardiology, [facility] [address] [place] [address] Terrie Sanchez CRNP [address] [place] [address] 04/07/2024 9:30 AM EDT Cardiac Studies Cardiology, [facility] [address] [place] [address] [facility] [address] [place] [address] 05/26/2024 8:30 AM EDT Office Visit Gynecology/Obstetrics [address] [place] [address] Melinda Walls CRNP [address] [place] [address] Pending Results Name Type Priority Associated Diagnoses Date /Time BASIC METABOLIC PANEL Lab Routine NICM (nonischemic cardiomyopathy) (HCC) HFrEF (heart failure with reduced ejection fraction) (HCC) FLNC-related myofibrillar myopathy ICD (implantable cardioverter-defibrillator ) in place Paroxysmal atrial fibrillation (HCC) Dyslipidemia, goal LDL below 100 09/07/2023 9:50 AM EST Health Maintenance Due Date Last Done Comments [...] Not on filedocumented as of this encounter Procedures Procedure Name Priority Date/Time Associated Diagnosis Comments CBC Routine 09/07/2023 9:50 AM EST NICM (nonischemic cardiomyopathy) (HCC) HFrEF (heart failure with reduced ejection fraction) (HCC) FLNC-related myofibrillar myopathy ICD (implantable cardioverter-defibrill ator) in place Paroxysmal atrial fibrillation (HCC) Dyslipidemia, goal LDL below 100 documented in this encounter Results * CBC (09/07/2023 9:50 AM EST) WBC 10.67 4.00 - 10.80 K/uL 09/07/2023 10:01 AM EST [facility] RBC 4.55 3.85 - 5.15 M/uL 09/07/2023 10:01 AM EST [facility] 57-10 HGB 14.0 12.0 - 15.3 g/dL 09/07/2023 10:01 AM EST [facility]10 HCT 41.8 36.0 - 45.2 % 09/07/2023 10:01 AM EST [facility]10 MCV 91.9 81.5 - 97.5 fL 09/07/2023 10:01 AM EST [facility] MCH 30.8 27.0 - 34.0 pg 09/07/2023 10:01 AM EST [facility]10 MCHC 33.5 32.0 - 36.0 g/dL 09/07/2023 10:01 AM EST [facility]10 RDW 13.2 11.5 - 15.5 % 09/07/2023 10:01 AM EST [facility]10 PLT 241 140 - 400 K/uL 09/07/2023 10:01 AM EST [facility] MPV 10.7 6.6 - 11.1 fL 09/07/2023 10:01 AM EST [facility] Blood Venous blood specimen / Unknown Venipuncture / Unknown 09/07/2023 9:50 AM EST 09/07/2023 9:50 AM EST Terrie Hanley Daniel HENRIQUEZ LAB BLOOD ORDER [facility] [place] [address] documented in this encounter Visit Diagnoses Diagnosis NICM (nonischemic cardiomyopathy) (HCC) Other primary cardiomyopathies [...] and were consensually agreed upon. Care Teams Seed Technician Relationship Specialty Start Date End Date Zora Fonseca MD [address] [place] [address] [place] [address] PCP - General Family Medicine 07/16/18 documented as of this encounter
--- OUTSIDE RECORDS SUMMARY | 2023-10-21 16:15 | External Medical Summary | Summary of Care ---
Author Name Unknown Organization [facility] Address [address] [place] [address] Phone [phone] Care Team Providers Care Senior Software Quality Analyst Name Role Phone Zora Fonseca MD Primary Care Prov ider Reason for Visit * Reason Onset Date Comments Medication Refill 09/17/2023 Advice 09/17/2023 Encounter Details Date Type Department Care Team (Late st Contact Info) Description 09/17/2023 Telephone Nutrition & Weight Management, [place] [address] [place], [place] [phone] Anusha Vora, PRICILA [address] [place], [place] [phone] Medication Refill; Advice Allergies No known active [...] obstructive sleep apnea,NICM (nonischemic cardiomyopathy) ([facility]) Inject 2.4 mg (1 pen) under the [...] encounter Miscellaneous Notes * Telephone Encounter - Sheila Freed LPN [...] her Pharmacy. Thank you, Charisma Martinez CPhT Cordwainer II [facility] ([facility]) (Formerly Telepharmacy) 09/17/2023,1:32 PM documented in this encounter Plan of Treatment Upcoming Encounters Date Type Department Care Team (Late st Contact Info) Description 10/18/2023 10:00 AM EST Telemedicine Nutrition & Weight Management, [address] [place] [address] Rafy Simmons MD [address] [place] [address] 10/24/2023 1:40 PM EST Office Visit Family Medicine [address] [phone] Zora Fonseca MD [address] [place] [address] [place] [address] 03/12/2024 9:30 AM EDT Office Visit Cardiology, [address] [place] [address] Terrie Sanchez CRNP 132 [place] [address] 04/07/2024 9:30 AM EDT Cardiac Studies Cardiology, [address] [place] [address] China Padilla [facility] [address] [place] [address] 05/26/2024 8:30 AM EDT Office Visit Gynecology/Obstetrics [address] [place] [address] Melinda Walls CRNP [address] [place] [address] Health Maintenance Due Date Last Done Comments [...] sleep apnea NICM (nonischemic cardiomyopathy) ([facility]) Other primary cardiomyopathies documented in this encounter [...] and were consensually agreed upon. Care Teams Senior Software Quality Analyst Relationship Specialty Start Date End Date Zora Fonseca MD [address] [place] [address] [place] [address] PCP - General Family Medicine 07/16/18 documented as of this encounter
--- OUTSIDE RECORDS SUMMARY | 2023-10-21 16:15 | External Medical Summary | Summary of Care ---
Author Name Unknown Organization [facility] Address [address] [place] [address] Phone [phone] Care Team Providers Care Manager Transportation Planning Name Role Phone Zora Fonseca MD Primary Care Prov ider Reason for Visit * Reason Onset Date Comments Medication Refill 09/17/2023 Advice 09/17/2023 Encounter Details Date Type Department Care Team (Late st Contact Info) Description 09/17/2023 Telephone Nutrition & Weight Management, [place] [address] [place], [place] [phone] Ry Vora, PRICILA [address] [place], [place] [phone] Medication Refill; Advice Allergies No known active allergiesdocumented as of this encounter (statuses as of 09/20/2023) Medications Medication Sig Dispensed Refills Start Date [...] apnea,NICM (nonischemic cardiomyopathy) (HCC) Inject 2.4 mg (1 pen) under the [...] apnea,NICM (nonischemic cardiomyopathy) (HCC) Inject 2.4 mg (1 pen) under the skin once a week. 9 mL 1 09/17/2023 3 Discontinu ed(Refill) documented as of this encounter (statuses as of 09/20/2023) Active Problems Problem Noted Date Diagnosed Date [...] as of this encounter (statuses as of 09/20/2023) Resolved Problems Problem Noted Date Diagnosed Date [...] as of this encounter (statuses as of 09/20/2023) Immunizations Name Administration Dates Next Due PPD [...] Telephone Encounter - Sheila Freed LPN - 09/20/2023 12:48 PM EST Called pt and left message that 2.4 sent in. * Addendum Note - Ry Vora DNP [...] her Pharmacy. Thank you, Charisma Martinez CPhT Title 1 Tutor II [facility] ([facility]) (Formerly Telepharmacy) 09/17/2023,1:32 PM documented in this encounter Plan of Treatment Upcoming Encounters Date Type Department Care Team (Late st Contact Info) Description 10/18/2023 10:00 AM EST Telemedicine Nutrition & Weight Management, [facility] [address] [facility] [place] [address] Rafy Simmons MD [address] [place] [address] 10/24/2023 1:40 PM EST Office Visit Family Medicine [address] [place] [phone] Zora Fonseca MD [address] [place] [address] [place] [address] 03/12/2024 9:30 AM EDT Office Visit Cardiology, [facility] [address] [facility] [place] [address] Terrie Sanchez CRNP 132 [facility] [place] [address] 04/07/2024 9:30 AM EDT Cardiac Studies Cardiology, [facility] [address] [facility] [place] [address] [place] [address] [facility] [place] [address] 05/26/2024 8:30 AM EDT Office Visit Gynecology/Obstetrics [address] [place] [address] Melinda Walls CRNP [address] [place] [address] Health Maintenance Due Date Last Done Comments [...] and were consensually agreed upon. Care Teams Manager Transportation Planning Relationship Specialty Start Date End Date Zora Fonseca MD [address] [place] [address] [place] [address] PCP - General Family Medicine 07/16/18 documented as of this encounter
--- OUTSIDE RECORDS SUMMARY | 2023-10-21 16:15 | External Medical Summary ---
Author Name Unknown Address Unknown Organization [id number] [address] [place] [address] Laboratory Report Ordering Provider Test Date Status OMID TOMPKINS 09/07/2023 09:50:36 Final Observation Date Value Abnormality Reference (Units ) Status BUN 09/07/2023 09:50:36 16 6-20 (mg/dL) Final Creatinine 09/07/2023 09:50:36 1.0 0.5-1.0 (mg/dL) Final Glomerular filtration rate/1.73 sq M.predicted [Volume Rate/Area] in Serum, Plasma or Blood by Creatinine-based formula (CKD-EPI) 09/07/2023 09:50:36 74 >=60 (mL/min) Final eGFR is calculated based on the CKD-EPI 2020 equation SODIUM 09/07/2023 09:50:36 138 135-146 (m mol/L) Final Potassium 09/07/2023 09:50:36 4.5 3.5-5.1 (m mol/L) Final Cl 09/07/2023 09:50:36 102 98-107 (mm ol/L) Final CO2 09/07/2023 09:50:36 28 22-32 (mmo l/L) Final Anion gap 09/07/2023 09:50:36 8 7-15 (mmol /L) Final Glucose 09/07/2023 09:50:36 78 70-120 (mg /dL) Final Calcium 09/07/2023 09:50:36 9.5 8.4-10.2 ( mg/dL) Final Performing Location [facility] [place] [address]
--- OUTSIDE RECORDS SUMMARY | 2023-10-21 16:16 | External Medical Summary | Summary of Care ---
Author Name Unknown Organization [facility] Address [address] [place] [address] Phone [phone] Care Team Providers Care Lathe Machinist Name Role Phone Zora Fonseca MD Primary Care Prov ider Encounter Details Date Type Department Care Team Description 05/14/2023 Orders Only Family Medicine [address] [place] [address] Zora Fonseca MD [address] [place] [address] [place] [address] Allergies No known active allergiesdocumented as of this encounter (statuses as of 05/14/2023) Medications Medication Sig Dispensed Refills Start Date [...] and 1 Tablet before bedtime. 180 Tablet 02/15/2023 Active Torsemide 20 MG Oral Tablet (Demadex) Take 1 Tablet by mouth in the morning. Take an additional tablet as needed. 200 Tablet 02/15/2023 Active Rosuvastatin Calcium 5 MG Oral Tablet (Crestor)Indications :Dyslipidemia, goal LDL below 100 Take 1 Tablet by mouth in the morning. 90 Tablet 3 02/15/2023 Active Escitalopram Oxalate 20 MG Oral Tablet (Lexapro)Indications :REMY (generalized anxiety disorder) TAKE 1 TABLET BY MOUTH EVERY DAY IN THE MORNING 90 Tablet 03/07/2023 Active Wegovy 2.4 MG/0.75ML Subcutaneous Solution Auto-injector (Semaglutide-Weight Management)Indicatio ns:Class 3 severe obesity due to excess calories with serious comorbidity and body mass index (BMI) of 45.0 to 49.9 in adult ([facility]) Inject 2.4 mg under the skin once a week. Do not start before April 04, 2023. 9 mL 1 04/04/2023 Active Gabapentin 300 MG Oral Capsule (Neurontin)Indicatio ns:Neuropathic pain,Numbness and tingling,DDD (degenerative disc disease), cervical Take 1 Capsule by mouth in the morning and 1 Capsule in the evening. 180 Capsule 05/02/2023 Active Levothyroxine Sodium 50 MCG Oral Tablet (Levoxyl)Indications :Subclinical hypothyroidism,Histo ry of partial thyroidectomy TAKE 1 TABLET BY MOUTH IN THE MORNING. (AT LEAST 30 MIN PRIOR TO BREAKFAST OR OTHER MEDS). 90 Tablet 05/02/2023 Active Omeprazole 40 MG Oral Capsule Delayed Release (PriLOSEC) Take 1 Capsule by mouth in the morning. 90 Capsule 05/02/2023 Active Montelukast Sodium 10 MG Oral Tablet (Singulair) Take 1 Tablet by mouth at bedtime. 90 Tablet 5 05/02/2023 Active documented as of this encounter (statuses as of 05/14/2023) Active Problems Problem Noted Date Major depressive disorder, single episod e, mild 05/02/2023 Bilateral carpal tunnel syndrome 023 Paroxysmal atrial fibrillation 3 ICD (implantable cardioverter-defibrilla tor) in place 06/01/2022 REMY (generalized anxiety disorder) 06/01 HFrEF (heart failure with reduced ejecti on fraction) 02/10/2022 NICM (nonischemic cardiomyopathy) 2020 Acute systolic heart failure 07/29/2021 History of sarcoma of soft tissue 2020 Family history of cancer 02/02/2021 Pseudotumor cerebri 11/27/2018 HTN, goal below 140/90 07/15/2018 Diarrhea due to malabsorption 07/15/2018 Morbid obesity due to excess calories Thyromegaly 06/28/2018 ADVANCE DIRECTIVE INFORMATION 12/26/2005 Overview: No, Advance Directive brochure given to patient. Allergic rhinitis 01/30/2002 Irritable bowel syndrome Overview: Librax helps documented as of this encounter (statuses as of 05/14/2023) Resolved Problems Problem Noted Date Resolved Date Mild depression 06/01/2022 05/02/2023 Body mass index (BMI) of 45.0 to 49.9 in adult 0 02/13/2022 09/20/2022 Overview: Per Obesity protocol - Per Obesity protocol - Per Obesity protocol - - Body mass index (BMI) of 40.0 to 44.9 in adult 1 10/15/2020 02/16/2022 Overview: Per Obesity protocol - Per Obesity protocol - - Body mass index (BMI) of 45.0 to 49.9 in adult 1 10/16/2019 08/18/2021 Overview: Per Obesity protocol - - Body mass index (BMI) of 40.0 to 44.9 in adult 0 11/18/2018 08/19/2020 Overview: Per Obesity protocol #1 - Body mass index (BMI) of 45.0 to 49.9 in adult 1 10/19/2017 11/21/2018 Overview: Per Obesity protocol #1 Tobacco use disorder 06/28/2018 10/21/2018 PLANTAR FIBROMATOSIS 02/13/2006 07/15/2018 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 07/15/2018 JOINT PAIN-L-LEG 10/20/2004 07/15/2018 Encounter for supervision of other normal pregna ncy 12/16/2002 07/15/2018 Overview: ICD-10 update of inactive term ACUTE CYSTITIS 12/03/2008 Overview: Resolved per Benign Acute Dxs Protocol #3 documented as of this encounter (statuses as of 05/14/2023) Immunizations Name Administration Dates Next Due PPD 06/27/2017 Seasonal Influenza, Quadriva lent, No Preserve, 6 Mons & Above, IM 09/10/2020,06/28/2018,07/30/2017 TDAP (age 10 and older)(Boostrix) 03/07/2018 documented as of this encounter Social History Tobacco Use Types Packs/Day Years Used Date Smoking Tobacco: Former Cigarettes 0.5 6 Q uit: 06/08/2018 Smokeless Tobacco: Never Comments:started age 19 Alcohol Use Standard Drinks/Week Comments No 0 (1 standard drink = 0.6 oz pur e alcohol) Sex Assigned at Date Recorded Not on file Job Start Date Occupation [...] (15 years old or older) No 11/04/19 Cognitive Status Response Date of Assessm ent Because of a physical, menta l, or emotional condition, do you have serious difficulty concentrating, remembering, or making decisions? (5 years old or older No 11/04/2018 documented as of this encounter Plan of Treatment Upcoming Encounters Date Type Specialty Care Team Description 05/30/2023 Office Visit Pain Medicine Frank Garcia DO [address] [place] [phone] 09/07/2023 Office Visit Cardiology Terrie Sanchez CRNP [address] [place] [address] 09/26/2023 Telemedicine Gastroenterology Linda Penn MD [address] [place] [address] 10/24/2023 Office Visit Family Medicine Zora Fonseca MD [address] [place] [address] [place] [phone] 04/07/2024 Cardiac Studies Cardiology [facility] [address] [place] [address] 05/26/2024 Office Visit Gynecology Obstetrics Melinda Walls CRNP [address] [place] [address] Health Maintenance Due Date Last Done Comments [...] 05/01/2023, 02/05, 01/28/2022, Additional history exists Depression Screening, Annual for Pts 12 and Over 05/02/2024 05/02/2023 GFR 05/11/2024 05/11/2023, 04/09, 09/20/2022, [...] Procedure Name Priority Date/Time Associated Diagnosis Comments CHEMISTRY-OUTSIDE Routine 05/06/2023 documented in this encounter Results * (ABNORMAL) CHEMISTRY-OUTSIDE (05/06/2023) Not all results display below - see scan for full detail OUTSIDE LAB (SEE SCANNED REPORT) Comment:SCAN INCLUDES: [facility] ED LABS - CBCD, PT, CHEM, TROPONIN I, MG, UA CREATININE-OUTSID E LAB 1.24(A) 0.7 - 1.2 MG/DL OUTSIDE LAB (SEE SCANNED REPORT) EGFR-OUTSIDE LAB 56(A) >59 ML/MIN/1. 73M2 OUTSIDE LAB (SEE SCANNED REPORT) POTASSIUM-OUTSIDE LAB 4.0 3.6 - 5.0 MMOL/L OUTSIDE LAB (SEE SCANNED REPORT) GLUCOSE-OUTSIDE LAB 70 70 - 99 MG/DL OUTSIDE LAB (SEE SCANNED REPORT) HOURS FASTING OUTSID E LAB (SEE SCANNED REPORT) TRIGLYCERIDES-OUT SIDE LAB OUTSIDE LAB (SEE SCANNED REPORT) CHOLESTEROL-OUTSI DE LAB OUTSIDE LAB (SEE SCANNED REPORT) HDL-OUTSIDE LAB OUTS [facility] (SEE SCANNED REPORT) CHOL/HDL RATIO-OUTSIDE LAB OUTSIDE [facility] B (SEE SCANNED REPORT) LDL (CALCULATED)-OUTS [facility] OUTSIDE LAB (SEE SCANNED REPORT) LDL (DIRECT MEASURE)-OUTSIDE LAB OUTSIDE LAB (SEE SCANNED REPORT) HEMOGLOBIN, [id number] LAB OUTSIDE LAB (SEE SCANNED REPORT) PHOSPHORUS-OUTSID E LAB OUTSIDE LAB (SEE SCANNED REPORT) PTH-OUTSIDE LAB OUTS [facility] (SEE SCANNED REPORT) MICROALBUMIN RATIO-OUTSIDE LAB OUTSIDE LA B (SEE SCANNED REPORT) PROTEIN, UA-OUTSIDE LAB NEGATIVE OUTSIDE LAB (SEE SCANNED REPORT) HEMOGLOBIN-OUTSID E LAB 14.7 12 - 15.2 G/DL OUTSIDE LAB (SEE SCANNED REPORT) 05/06/2023 History Per Patient LABORATORY OUTSIDE LAB (SEE SCANNED REPORT) documented in this encounter Advance Directives Latest [...] and were consensually agreed upon. Care Teams Lathe Machinist Relationship Specialty Start Date End Date Zora Fonseca MD [address] [place] [address] [place] [address] PCP - General Family Medicine 07/16/18 documented as of this encounter
--- OUTSIDE RECORDS SUMMARY | 2023-10-21 16:16 | External Medical Summary | Summary of Care ---
Author Name Unknown Organization [facility] Address [address] [place] [address] Phone [phone] Care Team Providers Care Banking Consultant Name Role Phone Zora Fonseca MD Primary Care Prov ider Reason for Visit * Reason Comments Outpatient Testing Encounter Details Date Type Department Care Team Description 05/11/2023 Laboratory Laboratory [address] [place] [address] [facility] [address] [place] [address] [place] (acute kidney injury) (HCC) Allergies No known active allergiesdocumented as of this encounter (statuses as of 05/11/2023) Medications Medication Sig Dispensed Refills Start Date [...] by mouth in the morning. 90 Tablet 02/15/2023 Active Spironolactone 25 MG Oral Tablet (Aldactone) Take 1 Tablet by mouth in the morning. 90 Tablet 02/15/2023 Active Metoprolol Succinate ER 50 MG [...] by mouth in the morning. 90 Tablet 02/15/2023 Active Escitalopram Oxalate 20 MG Oral Tablet (Lexapro)Indications :REMY (generalized anxiety disorder) TAKE 1 TABLET BY MOUTH EVERY DAY IN THE MORNING 90 Tablet 03/07/2023 Active Wegovy 2.4 MG/0.75ML Subcutaneous Solution Auto-injector (Semaglutide-Weight Management)Indicatio ns:Class 3 severe obesity due to excess calories with serious comorbidity and body mass index (BMI) of 45.0 to 49.9 in adult ([facility]) Inject 2.4 mg under the skin once [...] as of this encounter (statuses as of 05/11/2023) Active Problems Problem Noted Date Major depressive [...] as of this encounter (statuses as of 05/11/2023) Resolved Problems Problem Noted Date Resolved Date [...] as of this encounter (statuses as of 05/11/2023) Immunizations Name Administration Dates Next Due PPD [...] Pain Medicine Frank Garcia DO [address] [place] [phone] 09/07/2023 Office Visit Cardiology Terrie Sanchez CRNP [address] [place] [address] 09/26/2023 [facility] [address] [place] [address] 10/24/2023 Office Visit Family Medicine Zora Fonseca MD [address] [place] [address] [place] [phone] 04/07/2024 Cardiac Studies Cardiology [facility], [facility] [address] [place] [address] 05/26/2024 Office Visit Gynecology Obstetrics Melinda Walls CRNP [address] [place] [phone] Pending Results Name Type Priority Associated Diagnoses Date /Time BASIC METABOLIC PANEL Lab Routine [place] (acute kidney injury) (HCC) 05/11/2023 1:54 PM EDT Health Maintenance Due Date Last Done Comments [...] 2023 09/10/2020, 06/28/2018, 07/30/2017, Additional history exists GFR 09/20/2023 09/20/2022, 03/09, 03/28/2022, Additional history exists TSH 05/01/2024 05/01/2023, 02/05, 01/28/2022, Additional history exists Depression Screening, Annual for Pts 12 and Over 05/02/2024 05/02/2023 Albumin/Creatinine Ratio 07/18/2024 07/18/2021 Diabetes Screening 03/21/2026 03/21/2023, 1 11/21/2021, 09/20/2022, Additional history exists DTaP,Tdap,and Td Vaccines (2 [...] as of this encounter Visit Diagnoses Diagnosis [place] (acute kidney injury) (HCC) Acute kidney failure, unspecified documented in this encounter Advance Directives Latest [...] and were consensually agreed upon. Care Teams Banking Consultant Relationship Specialty Start Date End Date Zora Fonseca MD [address] [place] [address] [place] [address] PCP - General Family Medicine 07/16/18 documented as of this encounter
--- OUTSIDE RECORDS SUMMARY | 2023-10-21 16:16 | External Medical Summary | Summary of Care ---
Author Name Unknown Organization [facility] Address [address] [place] [address] Phone [phone] Care Team Providers Care Skin Lifter Bacon Name Role Phone Zora Fonseca MD Primary Care Prov ider Encounter Details Date Type Department Care Team Description 05/14/2023 Orders Only Family Medicine [address] [place] [phone] Zora Fonseca MD [address] [place] [address] [place] [address] Allergies No known active [...] of 45.0 to 49.9 in adult ([facility]) Inject 2.4 mg under the skin once [...] Frank Garcia DO [address] [place] [phone] 09/07/2023 Office Visit Cardiology Terire Sanchez CRNP [address] [place] [address] 09/26/2023 Telemedicine Gastroenterology Linda Penn MD [address] [place] [address] 10/24/2023 Office Visit Family Medicine oZra Fonseca MD [address] [place] [address] [place] [phone] 04/07/2024 Cardiac Studies Cardiology [facility] [address] [place] [address] 05/26/2024 Office Visit Gynecology Obstetrics Melinda Walls CRNP [address] [place] [address] Health Maintenance Due Date Last Done Comments [...] Procedure Name Priority Date/Time Associated Diagnosis Comments XR CHEST 1 VIEW Routine 05/06/2023 documented in this encounter Results * XR CHEST 1 VIEW (05/06/2023) Anatomical Region Laterality Modality Chest Other 05/06/2023 History Per Patient RADIOLOGY (RAD GENER AL) documented in this encounter Advance Directives Latest [...] and were consensually agreed upon. Care Teams Skin Lifter Bacon Relationship Specialty Start Date End Date Zora Fonseac MD [address] [place] [address] [place] [address] PCP - General Family Medicine 07/16/18 documented as of this encounter
--- OUTSIDE RECORDS SUMMARY | 2023-10-21 16:16 | External Medical Summary | Summary of Care ---
Author Name Unknown Organization [facility] Address [address] [place] [address] Phone [phone] Care Team Providers Care Acid Etch Operator Name Role Phone Zora Fonseca MD Primary Care Prov ider Reason for Visit * Reason Comments Acute R side Jaw pain from filling that fell out-- ongoing for 2 weeks was rxd abx (dose not have dental insurance) Encounter Details Date Type Department Care Team Description 07/26/2023 Office Visit Family Practice [facility] [address] [facility] [place] [address] Yessi Chandler CRNP 132 [facility] [place] [address] Arthralgia of right temporomandibular joint*; Panic attack; Right ear pain Allergies No known active allergiesdocumented as of this encounter (statuses as of 07/26/2023) Medications Medication Sig Dispensed Refills Start Date [...] 02/15/2023 Active Entresto 97-103 MG Oral Tablet (sacubitril-valsartan 97-103 [...] Active Rosuvastatin Calcium 5 MG Oral Tablet (Crestor)Indications:D yslipidemia, goal LDL below 100 Take 1 Tablet by mouth in the morning. 90 Tablet 3 02/15/2023 Active Escitalopram Oxalate 20 MG Oral Tablet (Lexapro)Indications:G AD (generalized anxiety disorder) TAKE 1 TABLET BY MOUTH EVERY DAY IN THE MORNING 90 Tablet 1 03/07/2023 Active Gabapentin 300 MG Oral Capsule (Neurontin)Indications :Neuropathic pain,Numbness and tingling,DDD (degenerative disc disease), cervical Take 1 Capsule by mouth in the morning and 1 Capsule in the evening. 180 Capsule 05/02/2023 Active Levothyroxine Sodium 50 MCG Oral Tablet (Levoxyl)Indications:S ubclinical hypothyroidism,History of partial thyroidectomy TAKE 1 TABLET BY [...] at bedtime. 90 Tablet 5 05/02/2023 Active Amoxicillin 500 MG Oral Capsule (Amoxil)Indications:De ntal infection Take 1 Capsule by mouth in the morning and 1 Capsule at noon and 1 Capsule before bedtime. Do all this for 10 days. 30 Capsule 0 07/18/2023 3 Active Ozempic (1 MG/DOSE) 4 MG/3ML Subcutaneous Solution Pen-injector (Semaglutide (1 MG/DOSE)) Inject 1 mg under the skin once a week. 3 mL 0 07/23/2023 Active hydrOXYzine HCl 25 MG Oral TabletIndications:Adri c attack Take 1 Tablet by mouth every 6 hours as needed for Anxiety. 40 Tablet 0 07/26/2023 Active predniSONE 20 MG Oral Tablet (Deltasone)Indications :Arthralgia of right temporomandibular joint Take 2 Tablets by mouth in the morning for 5 days. 10 Tablet 0 07/26/2023 3 Active Ofloxacin 0.3 % Otic Solution (Floxin)Indications:Ri ght ear pain Administer 10 Drops into ears in the morning and 10 Drops before bedtime. Do all this for 10 days. In affected ear for 10 days.. 10 mL 0 07/26/2023 3 Active documented as of this encounter (statuses as of 07/26/2023) Active Problems Problem Noted Date Major depressive [...] as of this encounter (statuses as of 07/26/2023) Resolved Problems Problem Noted Date Resolved Date [...] as of this encounter (statuses as of 07/26/2023) Immunizations Name Administration Dates Next Due PPD [...] Sign Reading Time Taken Comments Blood Pressure 112/68 07/26/2023 2:12 PM EDT Pulse 66 07/26/2023 2:12 PM EDT Temperature 36.3 C (97.4 F) 07/26/2023 2:12 PM ED T Respiratory Rate - - Oxygen Saturation 96% 07/26/2023 2:12 PM EDT Inhaled Oxygen Concentration - - Weight - - Height - - Body Mass Index - - documented in this encounter Functional Status Functional [...] as of this encounter Progress Notes * MARTINEZ Starr - 07/26/2023 2:21 PM EDT Images from the original note were not included. History of Present Illness Yesenia Hernández is a 42 year old female that presents for Acute (R side Jaw pain from filling that fell out-- ongoing for 2 weeks was rxd abx (dose not have dental insurance) ) HPI Here for R-sided jaw pain that was not relieved after a course of antibiotics for dental infection.Her pain does seem to be consistent with TMJ -- hurts when her jaw opens and pain is right over theTMJ. She has some pain radiating to her ear. She said the provider that treated her initially with the anitbiotics was going to try steroids next to try to treat TMJ and she would like to do this. However for the last week her anxiety has been worse. Having panic attacks with chest tightness and SOB. She has a pacer and is taking metoprolol and doesn't think her HR has been objectively high it just feels like her heart is racing. She has not passed out or fainted. She has no cough or wheezing or worsening swelling. She is very tired over the last week and feels "out of it" sometimes when people talk to her. She has suspected sleep apnea but has not yet done the recommended testing. Physical Exam Vitals: 07/26/23 1412 Temp: 36.3 C (97.4 F) Pulse: 66 SpO2: 96% BP: 112/68 Physical Exam Vitals reviewed. Constitutional: General: She is not in acute distress. HENT: Head: Jaw: Tenderness (R TMJ) present. Right Ear: External ear normal. Left Ear: Tympanic membrane, ear canal and external ear normal. Ears: Comments: Mild erythema of R ear canal but normal appearing TM Nose: No congestion or rhinorrhea. Mouth/Throat: Mouth: Mucous membranes are moist. Comments: + poor dentition however no gingival erythema or tenderness or tooth pain Cardiovascular: Rate and Rhythm: Normal rate. Pulmonary: Effort: No respiratory distress. Lymphadenopathy: Cervical: No cervical adenopathy. Neurological: Mental Status: She is alert. Assessment and Plan Arthralgia of right temporomandibular joint Recommend first trialing topical voltaren as prednisone may make her anxiety symptoms worse Consider PT referral if no improvement - predniSONE 20 MG Oral Tablet (Deltasone); Take 2 Tablets by mouth in the morning for 5 days. Panic attack Daily x 1 week with fatigue, hypersomnolence Encouraged sleep med follow up for untreated PATEL ER if severe symptoms discussed -- she has a complicated cardiac history and cannot rule out cardiac etiology and recommend she follow up with her direct service professional Follow up for mood medication adjustment if persistent Hydroxyzine PRN in mean time - hydrOXYzine HCl 25 MG Oral Tablet; Take 1 Tablet by mouth every 6 hours as needed for Anxiety. Right ear pain Will treat mild OE - Ofloxacin 0.3 % Otic Solution (Floxin); Administer 10 Drops into ears in the morning and 10 Dropsbefore bedtime. Do all this for 10 days. In affected ear for 10 days.. Wrap-Up Follow Up: Return if symptoms worsen or fail to improve. Time: I spent a total of 20-29 minutes (exact time 20 mins) on the date of service in preparation, delivery, and documentation of the care provided to Yesenia Hernández excluding any time spent in the performance of separately billed services. documented in this encounter Nursing Notes * Halie Magaña LPN - 07/26/2023 2:08 PM EDT The patient has been properly identified by confirmation of name and date of . Chief Complaint Patient presents with Acute R side Jaw pain from filling that fell out-- ongoing for 2 weeks was rxd abx (dose not have dental insurance) No relief with any OTC meds, abx did not help. Interested in steroids as the next treatment. Pt states she has started to get increased anxiety over the past week. Panic attacks, increased heart rate then stopped. Pt feels off, sleeping a lot more, no energy. Pt has heart failure, pacer, cardio Hx. documented in this encounter Plan of Treatment Upcoming Encounters Date Type Specialty Care Team Description 09/07/2023 Office Visit Cardiology Terrie Sanchez CRNP [address] [place] [address] 09/26/2023 [facility]medicine [facility]enterology [facility] [address] [facility] [address] 10/24/2023 Office Visit Family Medicine Zora Fonseca MD [address] [place] [address] [place] [address] 04/07/2024 Cardiac Studies Cardiology [facility] [address] [place] [address] 05/26/2024 Office Visit Gynecology Obstetrics Melinda Walls CRNP [address] [place] [address] Health Maintenance Due Date Last Done Comments [...] as of this encounter Visit Diagnoses Diagnosis Arthralgia of right temporomandibular joint- Primary Arthralgia of temporomandibular joint Panic attack Panic disorder without agoraphobia Right ear pain Otalgia, unspecified documented in this encounter Advance Directives [...] and were consensually agreed upon. Care Teams Acid Etch Operator Relationship Specialty Start Date End Date Zora Fonesca MD [address] [place] [address] [place] [address] PCP - General Family Medicine 07/16/18 documented as of this encounter
--- OUTSIDE RECORDS SUMMARY | 2023-10-21 16:16 | External Medical Summary | Summary of Care ---
Author Name Unknown Organization [facility] Address [address] [place] [address] Phone [phone] Care Team Providers Care Maintenance Aide Name Role Phone Zora Fonseca MD Primary Care Prov ider Reason for Visit * Reason Onset Date Comments Advice 08/21/2023 Encounter Details Date Type Department Care Team (Late st Contact Info) Description 08/21/2023 Telephone Nutrition & Weight Management, [place] [address] [place] [address] Anusha Vora, [facility] [address] [place], [place] [phone] Advice Allergies No known active allergiesdocumented as [...] (BMI) of 45.0 to 49.9 in adult ([facility]) INJECT 1.7 MG UNDER THE SKIN ONCE [...] 09/07/2023 9:00 AM EST Office Visit Cardiology, [facility] [address] [place] [address] Terrie Sanchez CRNP [address] [place] [address] 09/26/2023 1:20 PM EST [facility] [address] [place] [address] Linda Penn MD [address] [place], [place] [phone] 10/24/2023 1:40 PM EST Office Visit Family Medicine [address] [place] [phone] Zora Fonseca MD [address] [place] [address] [place] [address] 04/07/2024 9:30 AM EDT Cardiac Studies Cardiology, [facility] [address] [place] [address] [place] [address] [address] 05/26/2024 8:30 AM EDT Office Visit Gynecology/Obstetrics [address] [place] [address] Melinda Walls CRNP [address] [place] [address] Health Maintenance Due Date Last Done Comments [...] and were consensually agreed upon. Care Teams Maintenance Aide Relationship Specialty Start Date End Date Zora Fonseca MD [address] [place] [address] [place] [address] PCP - General Family Medicine 07/16/18 documented as of this encounter
--- OUTSIDE RECORDS SUMMARY | 2023-10-21 16:16 | External Medical Summary | Summary of Care ---
Author Name Unknown Organization [facility] Address [address] [place] [address] Phone [phone] Care Team Providers Care Chiller Tender Name Role Phone Zora Fonseca MD Primary Care Prov ider Encounter Details Date Type Department Care Team Description 06/19/2023 Patient Reported Data Patient Survey Ortho OBERD Allergies No known active allergiesdocumented as of this encounter (statuses as of 06/19/2023) Medications Medication Sig Dispensed Refills Start Date [...] THE MORNING 90 Tablet 1 03/07/2023 Active Wegovy 2.4 MG/0.75ML Subcutaneous Solution Auto-injector (Semaglutide-Weight Management)Indicatio ns:Class 3 severe obesity due to excess calories with serious comorbidity and body mass index (BMI) of 45.0 to 49.9 in adult ([facility]) Inject 2.4 mg under the skin once [...] as of this encounter (statuses as of 06/19/2023) Active Problems Problem Noted Date Major depressive [...] as of this encounter (statuses as of 06/19/2023) Resolved Problems Problem Noted Date Resolved Date [...] as of this encounter (statuses as of 06/19/2023) Immunizations Name Administration Dates Next Due PPD 06/27/2017 Seasonal Influenza, PF, 6 mo ns & Above, IM , (Flulaval) 09/10/2020,06/28/2018,07/30/2017 TDAP (age 10 and older)(Boostrix) 03/07/2018 [...] Terrie Sanchez CRNP [address] [place] [address] 09/26/2023 Telemedicine Gastroenterology [facility] [address] [facility] [phone] 10/24/2023 Office Visit Family Medicine Zora Fonseca MD [address] [place] [address] [place] [address] 04/07/2024 Cardiac Studies Cardiology [facility] [address] [place] [address] 05/26/2024 Office Visit Gynecology Obstetrics Melinda Walls CRNP [address] [place] [address] Health Maintenance Due Date Last Done Comments [...] and were consensually agreed upon. Care Teams Chiller Tender Relationship Specialty Start Date End Date Zora Fonseca MD [address] [place] [address] [place] [address] PCP - General Family Medicine 07/16/18 documented as of this encounter
--- OUTSIDE RECORDS SUMMARY | 2023-10-21 16:16 | External Medical Summary | Summary of Care ---
Author Name Unknown Organization [facility] Address [address] [place] [address] Phone [phone] Care Team Providers Care Newspaper Stuffer Name Role Phone Zora Fonseca MD Primary Care Prov ider Reason for Visit * Reason Comments eRx-Medication Refill Encounter Details Date Type Department Care Team (Late st Contact Info) Description 08/06/2023 [place] [facility], [place] [address] [place], [place] [phone] Ry Vora, [facility] [address] [place], [place] [phone] eRx-Medication Refill Allergies No known active allergiesdocumented as of [...] ([facility]) INJECT 1.7 MG UNDER THE SKIN [...] follows: Patient name: Yesenia Hernández ID number: [id number] BIN number: [id number] N number: Group number: [id number] Subscriber name: Yesenia Hernández Primary or Secondary Insurance:Primary Medication: Wegovy 1.7 MG/0.75ML Subcutaneous Solution Auto-injector (Semaglutide-Weight Management) Reason for Request: needs [place] Pharmacy and phone number: [id number] [place] Rx plan and phone number: [phone] Is this a new medication for the patient? No. How did the patient obtain the medication on the lastfill? The patient used a different insurance last time. They used blue cross blue shield. What alternative medications does the pharmacy have in stock?: n/a Nimisha Bee [employer] Sales Management Assistant [facility] 08/21/2023,11:31 AM [...] 09/07/2023 9:00 AM EST Office Visit Cardiology, [facility] [address] [place] [address] Terrie Sanchez CRNP [address] [place] [address] 09/26/2023 1:20 PM EST Telemedicine Nutrition & Weight Management, [place] [address] [place] [address] iLnda Penn MD [address] [place] [address] 10/24/2023 1:40 PM EST Office Visit Family Medicine [address] [place] [address] Zora Fonseca MD [address] [place] [address] [place] [address] 04/07/2024 9:30 AM EDT Cardiac Studies Cardiology, [facility] [address] [place] [address] [facility] [address] [place] [address] 05/26/2024 8:30 AM EDT Office Visit Gynecology/Obstetrics [address] [place] [address] Melinda Walls CRNP [address] [place] [address] Health Maintenance Due Date Last Done Comments [...] and were consensually agreed upon. Care Teams Newspaper Stuffer Relationship Specialty Start Date End Date Zora Fonseca MD [address] [place] [address] [place] [address] PCP - General Family Medicine 07/16/18 documented as of this encounter
--- OUTSIDE RECORDS SUMMARY | 2023-10-21 16:16 | External Medical Summary | Summary of Care ---
Author Name Unknown Organization [facility] Address [address] [place] [address] Phone [phone] Care Team Providers Care Faith Doctor Name Role Phone Zora Fonseca MD Primary Care Prov ider Reason for Visit * Reason Comments Emergency Department Follow-Up Encounter Details Date Type Department Care Team Description 05/11/2023 Office Visit Family Medicine [address] [phone] Zari Busby PA-C [address] [place] [address] [place] [phone] [place] (acute kidney injury) ([facility])*; Hypotension, unspecified hypotension type Allergies No known active allergiesdocumented as of [...] AND 1 TABLET BEFORE BEDTIME. 180 Tablet 02/15/2023 Active Empagliflozin 10 MG Oral Tablet [...] of 45.0 to 49.9 in adult (HCC) Inject 2.4 mg under the skin once a week. Do not start before April 04, 2023. 9 mL 04/04/2023 Active Gabapentin 300 MG Oral Capsule [...] Sign Reading Time Taken Comments Blood Pressure 106/64 05/11/2023 1:23 PM EDT Pulse 105 05/11/2023 1:23 PM EDT Temperature 36.6 C (97.9 F) 05/11/2023 1:23 PM ED T Respiratory Rate - - Oxygen Saturation 91% 05/11/2023 1:23 PM EDT Inhaled Oxygen Concentration - - Weight 126 kg (277 lb 11.2 oz) 05/11/2023 1:23 P M EDT Height - - Body Mass Index 47.67 04/02/2023 11:56 AM EDT documented in this [...] as of this encounter Progress Notes * Zari Busby PA-C - 05/11/2023 1:24 PM EDT Images from the original note were not included. History of Present Illness Yesenia Hernández is a 42 year old female that presents for Emergency Department Follow-Up Nursing Notes: Sharmila Rios CMA 05/11/23 1326 Signed She is here for a follow up for [facility] ED. She was seen for dizziness, lightheadness, sob, and CP. She had an ECG while there. HPI: Yesenia Hernández is a 42 year old female presenting to the office today for ER Follow up. The day she was in the ER, she felt poorly. When she came home, she slept for hours afterward. Prior to going, she had a warm sensation that went down thru her entire body down to her feet. She took her BP prior to going and it was 85/78. Troponin, HCG negative. CXR showed cardiomegaly but no acute change. Glucose in the urine was >1000, but she is on Jardiance. Creatinine 1.24 in the ER- baseline is 0.8. She does drink water throughout the day. The day prior to this episode, she was upstairs staining wood a lot throughout the day. She has felt slightly lightheaded here and there since coming home from the ER. She has felt like her heart rate is up slightly. She did download her data from her pacemaker. She didn't even get any fluids in the ER. Her mother was diagnosed with Antiphospholipid problems as well. Current Outpatient Medications Medication Instructions Apixaban (ELIQUIS) 5 mg, Oral, BID(AM/PM) Empagliflozin (JARDIANCE) 10 mg, Oral, Daily(AM) Entresto 97-103 MG Oral Tablet (sacubitril-valsartan 97-103 mg per tab) TAKE BY MOUTH 1 TABLET IN THE MORNING AND 1 TABLET BEFORE BEDTIME. Escitalopram Oxalate 20 MG Oral Tablet (Lexapro) TAKE 1 TABLET BY MOUTH EVERY DAY IN THE MORNING fexofenadine (CLARISA) 180 mg, Oral, Daily(AM) Gabapentin (NEURONTIN) 300 mg, Oral, BID (0700,1900) Levonorgestrel 20 MCG/24HR Intrauterine Intrauterine Device 1 Each, Intrauterine, ONCE, Inserted 2009? Levothyroxine Sodium 50 MCG Oral Tablet (Levoxyl) TAKE 1 TABLET BY MOUTH IN THE MORNING. (AT LEAST 30 MIN PRIOR TO BREAKFAST OR OTHER MEDS). metoprolol succinate XL (TOPROL XL) 50 mg, Oral, BID(AM/PM) montelukast (SINGULAIR) 10 mg, Oral, HS omeprazole (PRILOSEC) 40 mg, Oral, Daily(AM) rosuvastatin (CRESTOR) 5 mg, Oral, Daily(AM) Spironolactone (ALDACTONE) 25 mg, Oral, Daily(AM) Torsemide (DEMADEX) 20 mg, Oral, Daily(AM), Take an additional tablet as needed Wegovy 2.4 mg, Subcutaneous, QWEEK Med list reviewed by me today. Physical Exam Physical exam: General: Well-Developed. Well appearing. No acute distress. HENT: Normocephalic. Atraumatic. Hearing normal. Eyes: EOMI. Sclera without erythema or icterus. No discharge. Pupils equal, round, reactive to light. Neck: No tracheal deviation. ROM intact. No stridor. Cardiovascular: RRR. Normal S1/S2 noted. Pulmonary: No respiratory distress. No accessory muscle use. No adventitious sounds appreciated. Normal breath sounds. Musculoskeletal: ROM intact and appears normal. No gait disturbance. No edema or cyanosis. No calf tenderness. Neurologic: Alert. Oriented x 3. Appears stated age. CN 2-12 grossly intact. Skin: Warm and dry. No apparent rashes or ecchymoses. No jaundice or pallor noted. Psych: Mood and affect normal. I have reviewed the following results: Troponin, CBC, BMP and Urinalysis, POC Assessment and Plan [place] (acute kidney injury) (HCC) Continue to push fluids. Recheck BMP today. Possibly from dehydration/over exertion the day prior, and her diuretics could be a contributing factor. Will see how her renal function looks and then talk to Cardiology about dosing if she continues to have hypotensive episodes. Cut back torsemide to 1/2 dose the next 3 days as recommended by Dr. Mendez and then will go fromthere on dosing - BASIC METABOLIC PANEL; Future Hypotension, unspecified hypotension type Wrap-Up F/U as scheduled or sooner PRN documented in this encounter Nursing Notes * Sharmila Rios CMA - 05/11/2023 1:21 PM EDT She is here for a follow up for [facility] ED. She was seen for dizziness, lightheadness, sob, and CP. She had an ECG while there. documented in this encounter Plan of Treatment Upcoming Encounters Date Type Specialty Care Team Description 05/30/2023 Office Visit Pain Medicine Frank Garcia DO [address] [place] [phone] 09/07/2023 Office Visit Cardiology Terrie Sanchez CRNP [address] [place] [address] 09/26/2023 Telemedicine Gastroenterology Linda Penn MD [address] [place] [address] 10/24/2023 Office Visit Family Medicine Zora Fonseca MD [address] [place] [address] [place] [address] 04/07/2024 Cardiac Studies Cardiology [facility], Pacer [facility] [address] [place] [address] 05/26/2024 Office Visit Gynecology Obstetrics Melinda Walls CRNP [address] [place] [address] Pending Results Name Type Priority Associated Diagnoses Date /Time BASIC METABOLIC PANEL Lab Routine [place] (acute kidney injury) (HCC) 05/11/2023 1:54 PM EDT Scheduled Orders Name Type Priority Associated Diagnoses Orde r Schedule BASIC METABOLIC PANEL Lab Routine [place] (acute kidney injury) (HCC) Expected: 05/11/2023 (Approximate), Expires: 05/10/2024 Health Maintenance Due Date Last Done Comments [...] Visit Diagnoses Diagnosis [place] (acute kidney injury) (HCC)- Primary Acute kidney failure, unspecified Hypotension, unspecified hypotension type documented in this encounter Advance Directives Latest [...] and were consensually agreed upon. Care Teams Faith Doctor Relationship Specialty Start Date End Date Zora Fonseca MD [address] [place] [address] [place] [address] PCP - General Family Medicine 07/16/18 documented as of this encounter
--- OUTSIDE RECORDS SUMMARY | 2023-10-21 16:16 | External Medical Summary | Summary of Care ---
Author Name Unknown Organization [facility] Address [address] [place] [address] Phone [phone] Care Team Providers Care Regional Agronomist Name Role Phone Zora Fonseca MD Primary Care Prov ider Reason for Visit * Reason Comments eRx-Medication Refill Encounter Details Date Type Department Care Team (Late st Contact Info) Description 08/06/2023 Refill Nutrition & Weight Management, [place] [address] [place], [place] [phone] Ry Vora, [facility] [address] [place], [place] [phone] Class 3 severe obesity due to excess calories with serious comorbidity and body mass index (BMI) of 45.0 to 49.9 in adult (HCC) Allergies No known active allergiesdocumented as [...] follows: Patient name: Yesenia Hernández ID number: [id number] BIN number: [id number] PCN number: Group number: [id number] Subscriber name: Yesenia J Edgar Primary or Secondary Insurance:Primary Medication: Wegovy 1.7 MG/0.75ML Subcutaneous Solution Auto-injector (Semaglutide-Weight Management) Reason for Request: needs pa Pharmacy and phone number: [facility][id number] [address] [facility]- [place] Rx plan and phone number: [phone] Is this a new medication for the patient? No. How did the patient obtain the medication on the lastfill? The patient used a different insurance last time. They used blue cross blue shield. What alternative medications does the pharmacy have in stock?: n/a Nimisha Bee [facility]er [facility] 08/21/2023,11:31 AM * Telephone Encounter - Ry Vora DNP - 08/06/2023 12:29 PM EDTSigned Prescriptions: Disp Refills Wegovy 1.7 MG/0.75ML Subcutaneous Solution*3 mL 0 Sig: INJECT 1.7 MG UNDER THE SKIN ONCE A WEEK FOR 28 DAYS. AFTER FINISHING 1 MG INJECTIONS DO NOT START BEFORE FEBRUARY 05, 2023.Authorizing Provider: RY VORA documented in this encounter Plan of Treatment Upcoming Encounters Date Type Department Care Team (Late st Contact Info) Description 09/07/2023 9:00 AM EST Office Visit Cardiology, [facility] [address] [place] [address] Terrie Sanchez CRNP [address] [facility] [place] [address] 09/26/2023 1:20 PM EST Telemedicine Nutrition & Weight Management, [place] [address] [place] [address] Linda Penn MD [address] [place] [address] 10/24/2023 1:40 PM EST Office Visit Family [address] [phone] Zora Fonseca MD [address] [place] [address] [place] [address] 04/07/2024 9:30 AM EDT Cardiac Studies Cardiology, [facility] [address] [place] [address] [facility] [address] [place] [address] 05/26/2024 8:30 AM EDT Office Visit Gynecology/Obstetrics [address] [place] [address] Melinda Walls CRNP [address] [place] [address] Health Maintenance Due Date Last Done Comments [...] and were consensually agreed upon. Care Teams Regional Agronomist Relationship Specialty Start Date End Date Zora Fonseca MD [address] [place] [address] [place] [address] PCP - General Family Medicine 07/16/18 documented as of this encounter
--- OUTSIDE RECORDS SUMMARY | 2023-10-21 16:16 | External Medical Summary | Summary of Care ---
Author Name Unknown Organization [facility] Address [address] [place] [address] Phone [phone] Care Team Providers Care Guest Services Assistant Name Role Phone Zora Fonseca MD Primary Care Prov ider Encounter Details Date Type Department Care Team Description 07/16/2023 Result Scan Unspecified Department Dong Mendez, DO [address] [place] [address] <No scans attached> Allergies No known active allergiesdocumented as of this encounter (statuses as of 07/16/2023) Medications Medication Sig Dispensed Refills Start Date [...] (BMI) of 45.0 to 49.9 in adult ([facility]) Inject 2.4 mg under the [...] as of this encounter (statuses as of 07/16/2023) Active Problems Problem Noted Date Major depressive [...] as of this encounter (statuses as of 07/16/2023) Resolved Problems Problem Noted Date Resolved Date [...] as of this encounter (statuses as of 07/16/2023) Immunizations Name Administration Dates Next Due PPD [...] Terrie Sanchez CRNP [address] [place] [address] 09/26/2023 Telemedicine Gastroenterology Linda Penn MD [address] [place] [facility] [place] [address] 10/24/2023 Office Visit Family Medicine Zora Fonseca MD [address] [place] [address] [place] [address] 04/07/2024 Cardiac Studies Cardiology [facility] [address] [place] [address] 05/26/2024 Office Visit Gynecology Obstetrics Melinda Walls CRNP [address] [place] [address] Health Maintenance Due Date Last Done Comments [...] Procedure Name Priority Date/Time Associated Diagnosis Comments CARDIOLOGY SCANNED RESULT 07/16/2023 documented in this encounter Results * CARDIOLOGY SCANNED RESULT (07/16/2023) 07/16/2023 Dong Mendez DO OTHER documented in this encounter Advance Directives Latest [...] and were consensually agreed upon. Care Teams Guest Services Assistant Relationship Specialty Start Date End Date Zora Fonseca MD [address] [place] [address] [place] [address] PCP - General Family Medicine 07/16/18 documented as of this encounter
--- OUTSIDE RECORDS SUMMARY | 2023-10-21 16:16 | External Medical Summary | Summary of Care ---
Author Name Unknown Organization [facility] Address [address] [place] [address] Phone [phone] Care Team Providers Care Director Of Catering Sales Name Role Phone Zora Fonseca MD Primary Care Prov ider Reason for Visit * Reason Comments eRx-Medication Refill Encounter Details Date Type Department Care Team (Late st Contact Info) Description 08/06/2023 Refill Nutrition & Weight Management, [place] [address] [place], [place] [phone] Anusha Vora, [facility] [address] [place], [place] [phone] Class 3 severe obesity due to excess calories with serious comorbidity and body mass index (BMI) of 45.0 to 49.9 in adult (HCC) Allergies No known active allergiesdocumented as of this encounter (statuses as of 08/06/2023) Medications Medication Sig Dispensed Refills Start Date [...] 03/07/2023 Active Gabapentin 300 MG Oral Capsule (Neurontin)Indicati [...] (BMI) of 45.0 to 49.9 in adult ([facility]) INJECT 1.7 MG UNDER THE SKIN ONCE A WEEK FOR 28 DAYS. AFTER FINISHING 1 MG INJECTIONS DO NOT START BEFORE FEBRUARY 05, 2023. 3 mL 0 08/06/2023 09/03/2023 Active documented as of this encounter (statuses as of 08/06/2023) Active Problems Problem Noted Date Diagnosed Date [...] as of this encounter (statuses as of 08/06/2023) Resolved Problems Problem Noted Date Diagnosed Date [...] as of this encounter (statuses as of 08/06/2023) Immunizations Name Administration Dates Next Due PPD [...] Telephone Encounter - Anusha Vora DNP - 08/06/2023 12:29 PM EDTSigned Prescriptions: Disp Refills Wegovy 1.7 MG/0.75ML Subcutaneous Solution*3 mL 0 Sig: INJECT 1.7 MG UNDER THE SKIN ONCE A WEEK FOR 28 DAYS. AFTER FINISHING 1 MG INJECTIONS DO NOT START BEFORE 2022.Authorizing Provider: ANUSHA VORA documented in this encounter Plan of Treatment Upcoming Encounters Date Type Department Care Team (Late st Contact Info) Description 09/07/2023 9:00 AM EST Office Visit Cardiology, [address] [place] [address] Terrie Sanchez CRNP [address] [place] [address] 09/26/2023 1:20 PM EST Telemedicine Nutrition & Weight Management, [place] [address] [place] [address] Linda Penn MD [address] [place], [place] [phone] 10/24/2023 1:40 PM EST Office Visit Family Medicine [address] [place] [phone] Zora Fonseca MD [address] [place] [address] [place] [address] 04/07/2024 9:30 AM EDT Cardiac Studies Cardiology, [facility] [address] [place] [address] [place], [facility] [address] [place] [address] 05/26/2024 8:30 AM EDT Office Visit Gynecology/Obstetrics [address] [place] [address] Melinda Walls CRNP [address] [place] [address] Health Maintenance Due Date Last Done Comments [...] and were consensually agreed upon. Care Teams Director Of Catering Sales Relationship Specialty Start Date End Date Zora Fonseca MD [address] [place] [address] [place] [phone] PCP - General Family Medicine 07/16/18 documented as of this encounter
--- OUTSIDE RECORDS SUMMARY | 2023-10-21 16:16 | External Medical Summary | Summary of Care ---
Author Name Unknown Organization [facility] Address [address] [place] [address] Phone [phone] Care Team Providers Care Medical Administrative Technician Name Role Phone Eboni Rubio MD Primary Care Prov ider Reason for Visit * Reason Comments eRx-Medication Refill Encounter Details Date Type Department Care Team (Late st Contact Info) Description 08/06/2023 Refill Family Medicine [address] [phone] Eboni Rubio MD [address] [place], [place] [address] [phone] REMY (generalized anxiety disorder) Allergies No known active allergiesdocumented as of this encounter (statuses as of 08/07/2023) Medications Medication Sig Dispensed Refills Start Date [...] THE MORNING 90 Tablet 3 3 Active Escitalopram Oxalate 20 MG Oral Tablet (Lexapro)Indicatio ns:REMY (generalized anxiety disorder) TAKE 1 TABLET BY MOUTH EVERY DAY IN THE MORNING 90 Tablet 1 3 08/07/20 23 Discontinued documented as of this encounter (statuses as of 08/07/2023) Active Problems Problem Noted Date Diagnosed Date [...] as of this encounter (statuses as of 08/07/2023) Resolved Problems Problem Noted Date Diagnosed Date [...] as of this encounter (statuses as of 08/07/2023) Immunizations Name Administration Dates Next Due PPD [...] encounter Miscellaneous Notes * Telephone Encounter - Ebenezer Nguyen RPh - 08/07/2023 10:02 AM EDTSigned Prescriptions: Disp Refills Escitalopram Oxalate 20 MG Oral Tablet (Le*90 Tab*3 Sig: TAKE 1TABLET BY MOUTH EVERY DAY IN THE MORNINGAuthorizing Provider: EBONI RUBIO User: EBENEZER NGUYEN documented in this encounter Plan of Treatment Upcoming Encounters Date Type Department Care Team (Late st Contact Info) Description 09/07/2023 9:00 AM EST Office Visit Cardiology, [facility] [address] [place] [address] Terrie Sanchez CRNP 132 [facility] [place] [address] 09/26/2023 1:20 PM EST Telemedicine Nutrition & Weight Management, [place] [address] [place] [address] Linda Penn MD [address] [place] [address] 10/24/2023 1:40 PM EST Office Visit Family Medicine [address] [place] [phone] Eboni Rubio MD [address] [place] [address] [place] [address] 04/07/2024 9:30 AM EDT Cardiac Studies Cardiology, [facility] [address] [place] [address] China Padilla [facility] [address] 05/26/2024 8:30 AM EDT Office Visit Gynecology/Obstetrics [address] [place] [address] Melinda Walls CRNP [facility] [address] Health Maintenance Due Date Last Done Comments [...] as of this encounter Visit Diagnoses Diagnosis REMY (generalized anxiety disorder) Generalized anxiety disorder documented in this encounter Advance Directives Latest [...] and were consensually agreed upon. Care Teams Medical Administrative Technician Relationship Specialty Start Date End Date Eboni Rubio MD [address] [place] [address] [place] [address] PCP - General Family Medicine 07/16/18 documented as of this encounter
--- OUTSIDE RECORDS SUMMARY | 2023-10-21 16:16 | External Medical Summary | Summary of Care ---
Author Name Unknown Organization [facility] Address [address] [place] [address] Phone [phone] Care Team Providers Care Flask Handler Name Role Phone Zora Fonseca MD Primary Care Prov ider Encounter Details Date Type Department Care Team Description 05/06/2023 Result Scan Unspecified Department <No scans attached> Allergies No known active [...] (BMI) of 45.0 to 49.9 in adult ([facility]) Inject 2.4 mg under the skin once [...] Garcia DO [address] [place] [phone] 09/07/2023 Office Visit Cardiology Terrie Sanchez CRNP [address] [place] [phone] 09/26/2023 Telemedicine Gastroenterology Linda Penn MD [address] [facility] [place] [address] 10/24/2023 Office Visit Family Medicine Zora Fonseca MD [address] [place] [address] [place] [phone] 04/07/2024 Cardiac Studies Cardiology [facility] [address] [place] [address] 05/26/2024 Office Visit Gynecology Obstetrics Melinda Walls CRNP [address] [place] [address] Health Maintenance Due Date Last Done Comments [...] Procedure Name Priority Date/Time Associated Diagnosis Comments EKG SCANNED RESULT 05/06/2023 documented in this encounter Results * EKG SCANNED RESULT (05/06/2023) 05/06/2023 No Physician Data Unknown EKG documented in this encounter Advance Directives Latest [...] and were consensually agreed upon. Care Teams Flask Handler Relationship Specialty Start Date End Date Zora Fonseca MD [address] [place] [address] [place] [phone] PCP - General Family Medicine 07/16/18 documented as of this encounter
--- OUTSIDE RECORDS SUMMARY | 2023-10-21 16:16 | External Medical Summary | Summary of Care ---
Author Name Unknown Organization [facility] Address [address] [place] [address] Phone [phone] Care Team Providers Care Extractor Operator Solvent Process Name Role Phone Zora Fonseca MD Primary Care Prov ider Reason for Visit * Reason Onset Date Comments Medication Refill 07/23/2023 Encounter Details Date Type Department Care Team Description 07/23/2023 Refill Nutrition & Weight Management, [place] [address] [place] [address] Chencho Cifuentes CRNP [address] [place], [place] [phone] Allergies No known active allergiesdocumented as of this encounter (statuses as of 07/23/2023) Medications Medication Sig Dispensed Refills Start Date [...] the morning. 90 Tablet 3 3 Active Escitalopram Oxalate 20 MG Oral Tablet (Lexapro)Indicatio ns:REMY (generalized anxiety disorder) TAKE 1 TABLET BY MOUTH EVERY DAY IN THE MORNING 90 Tablet 1 3 Active Gabapentin 300 MG Oral Capsule [...] at bedtime. 90 Tablet 5 3 Active Amoxicillin 500 MG Oral Capsule (Amoxil)Indication s:Dental infection Take 1 Capsule by mouth in the morning and 1 Capsule at noon and 1 Capsule before bedtime. Do all this for 10 days. 30 Capsule 0 3 07/28/20 23 Active Ozempic (1 MG/DOSE) 4 MG/3ML Subcutaneous Solution Pen-injector (Semaglutide (1 MG/DOSE)) Inject 1 mg under the skin once a week. 3 mL 0 3 Active Wegovy 2.4 MG/0.75ML Subcutaneous Solution Auto-injector (Semaglutide-Weigh t Management)Indicat ions:Class 3 severe obesity due to excess calories with serious comorbidity and body mass index (BMI) of 45.0 to 49.9 in adult (HCC) Inject 2.4 mg under the skin once a week. Do not start before April 04, 2023. 9 mL 1 3 07/23/20 23 Discontinued documented as of this encounter (statuses as of 07/23/2023) Active Problems Problem Noted Date Major depressive [...] as of this encounter (statuses as of 07/23/2023) Resolved Problems Problem Noted Date Resolved Date [...] as of this encounter (statuses as of 07/23/2023) Immunizations Name Administration Dates Next Due PPD [...] Sanchez CRNP [address] [place] [address] 09/26/2023 [facility] [address] [place], [place] [phone] 10/24/2023 Office Visit Family Medicine Zora Fonseca MD [address] [place] [address] [place] [phone] 04/07/2024 [facility] [address] [place] [address] 05/26/2024 Office Visit Gynecology Obstetrics Melinda Walls CRNP [address] [place] [address] Health Maintenance Due Date Last Done Comments [...] and were consensually agreed upon. Care Teams Extractor Operator Solvent Process Relationship Specialty Start Date End Date Zora Fonseca MD [address] [place] [address] [place] [address] PCP - General Family Medicine 07/16/18 documented as of this encounter
--- OUTSIDE RECORDS SUMMARY | 2023-10-21 16:16 | External Medical Summary | Summary of Care ---
Author Name Unknown Organization [facility] Address [address] [place] [address] Phone [phone] Care Team Providers Care Truck Driver Rubbish Collector Name Role Phone Zora Fonseca MD Primary Care Prov ider Reason for Visit * Reason Comments eRx-Medication Refill Encounter Details Date Type Department Care Team (Late st Contact Info) Description 08/06/2023 Refill Nutrition & Weight Management, [facility] [address], [place] [id number] Ry Vora, [facility] [address] [place], [place] [phone] Class 3 severe obesity due to excess [...] to 49.9 in adult ([facility]) INJECT 1.7 MG UNDER THE SKIN ONCE [...] follows: Patient name: Yesenia Hernández ID number: [id number] BIN number: [id number] PCN number: Group number: [id number] Subscriber name: Yesenia J Edgar Primary or Secondary Insurance:Primary Medication: Wegovy 1.7 MG/0.75ML Subcutaneous Solution Auto-injector (Semaglutide-Weight Management) Reason for Request: needs [place] Pharmacy and phone number: [facility] #[id number] [facility] [place] Rx plan and phone number: [phone] Is this a new medication for the patient? No. How did the patient obtain the medication on the lastfill? The patient used a different insurance last time. They used blue cross blue shield. What alternative medications does the pharmacy have in stock?: n/a Nimisha Bee Pumper [facility] 08/21/2023,11:31 AM [...] 09/07/2023 9:00 AM EST Office Visit Cardiology, [facility] [address] [place] [address] Terrie Sanchez CRNP [address] [facility] [place] [address] 09/26/2023 1:20 PM EST Telemedicine Nutrition & Weight Management, [facility] [address] [place] [address] Linda Penn MD [address] [place] [address] 10/24/2023 1:40 PM EST Office Visit Family [address] [phone] Zora Fonseca MD [address] [place] [address] [place] [address] 04/07/2024 9:30 AM EDT Cardiac Studies Cardiology, [facility] [address] [place] [address] [facility] [address] [place] [address] 05/26/2024 8:30 AM EDT Office Visit Gynecology/Obstetrics [address] [place] [address] Melinda Walls CRNP [address] [place] [address] Health Maintenance Due Date Last Done Comments [...] and were consensually agreed upon. Care Teams Truck Driver Rubbish Collector Relationship Specialty Start Date End Date Zora Fonseca MD [address] [place] [address] [place] [address] PCP - General Family Medicine 07/16/18 documented as of this encounter
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
--- OUTSIDE RECORDS SUMMARY | 2023-10-21 16:17 | External Medical Summary ---
Author Name Unknown Address Unknown Organization K01:[facility] - [address] [place] [address] Laboratory Report Ordering Provider Test Date Status AVRIL GRIMM 05/11/2023 13:54:01 Final Observation Date Value Abnormality Reference (Units ) Status BUN 05/11/2023 13:54:01 10 6-20 (mg/dL) Final Creatinine 05/11/2023 13:54:01 1.0 0.5-1.0 (mg/dL) Final Glomerular filtration rate/1.73 sq M.predicted [Volume Rate/Area] in Serum, Plasma or Blood by Creatinine-based formula (CKD-EPI) 05/11/2023 13:54:01 73 >=60 (mL/min) Final eGFR is calculated based on the CKD-EPI 2020 equation SODIUM 05/11/2023 13:54:01 138 135-146 (m mol/L) Final Potassium 05/11/2023 13:54:01 4.0 3.5-5.1 (m mol/L) Final Cl 05/11/2023 13:54:01 105 98-107 (mm ol/L) Final CO2 05/11/2023 13:54:01 25 22-32 (mmo l/L) Final Anion gap 05/11/2023 13:54:01 8 7-15 (mmol /L) Final Glucose 05/11/2023 13:54:01 91 70-120 (mg /dL) Final Calcium 05/11/2023 13:54:01 9.2 8.4-10.2 ( mg/dL) Final Performing Location [facility] [place] - [address] [place] [address]
--- OUTSIDE RECORDS SUMMARY | 2023-10-21 16:17 | External Medical Summary | Summary of Care ---
Author Name Unknown Organization [facility] Address [address] [place] [address] Phone [phone] Care Team Providers Care Eap Clinician Name Role Phone Zora Fonseca MD Primary Care Prov ider Reason for Visit * Reason Comments Re-Check Encounter Details Date Type Department Care Team Description 05/02/2023 Office Visit Family Medicine [address] [phone] Zari Busby PA-C [address] [place] [address] [place] [address] Morbid obesity due to excess calories (HCC)*; Major depressive disorder, single episode, mild (HCC); Neuropathic pain; Numbness and tingling; DDD (degenerative disc disease), cervical; Subclinical hypothyroidism; History of partial thyroidectomy; HTN, goal below 140/90; Paroxysmal atrial fibrillation (HCC); Acute systolic heart failure (HCC); NICM (nonischemic cardiomyopathy) (HCC); HFrEF (heart failure with reduced ejection fraction) (HCC); ICD (implantable cardioverter-defibrill ator) in place Allergies No known active allergiesdocumented as of this encounter (statuses as of 05/02/2023) Medications Medication Sig Dispensed Refills Start Date [...] 02/15/2023 Active Entresto 97-103 MG Oral Tablet (sacubitril-valsar [...] MORNING 90 Tablet 1 03/07/2023 Active Wegovy 1.7 MG/0.75ML Subcutaneous Solution Auto-injector (Semaglutide-Weigh t Management)Indicat ions:Class 3 severe obesity due to excess calories with serious comorbidity and body mass index (BMI) of 45.0 to 49.9 in adult ([facility]) Inject 1.7 mg under the skin once a week. 3 mL 1 03/07/2023 Active Additional Information Patient not taking.Informant: Patient, Reported on 05/02/2023 Wegovy 2.4 MG/0.75ML Subcutaneous Solution Auto-injector (Semaglutide-Weigh t Management)Indicat ions:Class 3 severe obesity due to excess calories with serious comorbidity and body mass index (BMI) of 45.0 to 49.9 in adult (HCC) Inject 2.4 mg under the skin once a week. Do not start before April 04, 2023. 9 mL 1 04/04/2023 Active Gabapentin 300 MG Oral Capsule (Neurontin)Indicat [...] at bedtime. 90 Tablet 5 05/02/2023 Active Omeprazole 40 MG Oral Capsule Delayed Release Take 1 Capsule by mouth in the morning. 0 3 Discontinu ed(Refill) Triamcinolone Acetonide 0.1 % External Cream (Aristocort)Indica tions:Dry skin Apply topically to affected area 2 times a day. To affected area for up to 14 days 45 g 1 12/15/2022 3 Discontinu ed(Medicat ion List Clean Up) Colestipol HCl 1 GM Oral Tablet (Colestid)Indicati ons:Diarrhea due to malabsorption Take 2 Tablets by mouth in the morning and 2 Tablets before bedtime. 480 Tablet 1 01/10/2023 3 Discontinu ed(Medicat ion List Clean Up) Gabapentin 300 MG Oral Capsule (Neurontin)Indicat ions:Neuropathic pain,Numbness and tingling,DDD (degenerative disc disease), cervical Take 1 capsule by mouth at night x 1 week. Then advance as tolerated to 1 capsule by mouth twice daily thereafter. 60 Capsule 2 03/14/2023 3 Discontinu ed(Refill) Levothyroxine Sodium 50 MCG Oral Tablet (Levoxyl)Indicatio ns:Subclinical hypothyroidism,His tory of partial thyroidectomy TAKE 1 TABLET BY MOUTH IN THE MORNING. (AT LEAST 30 MIN PRIOR TO BREAKFAST OR OTHER MEDS). 90 Tablet 0 04/06/2023 3 Discontinu ed(Refill) documented as of this encounter (statuses as of 05/02/2023) Active Problems Problem Noted Date Major depressive [...] as of this encounter (statuses as of 05/02/2023) Resolved Problems Problem Noted Date Resolved Date [...] as of this encounter (statuses as of 05/02/2023) Immunizations Name Administration Dates Next Due PPD [...] Sign Reading Time Taken Comments Blood Pressure 130/84 05/02/2023 11:43 AM EDT Pulse 73 05/02/2023 11:43 AM EDT Temperature 35.8 C (96.4 F) 05/02/2023 1 1:43 AM EDT Respiratory Rate - - Oxygen Saturation 96% 05/02/2023 11: 43 AM EDT Inhaled Oxygen Concentration - - Weight 128.6 kg (283 lb 9.6 oz) 023 11:43 AM EDT Height - - Body Mass Index 48.68 04/02/2023 11:56 AM EDT documented in this [...] No 11/04/2018 documented as of this encounter Patient Instructions * Patient Instructions* Zari Busby PA-C - 05/02/2023 12:59 PM EDT BMI (Body Mass Index) is the number obtained by dividing a person's weight in kilograms by his or her height in meters squared. BMI is used in determining obesity. BMI is not used to determine a person's actual percentage of body fat, but it is a good tool to fryer line helper weight in terms of what is healthy and unhealthy. It is used to identify adults at increased risk for developing weight related medical problems. Estimated body mass index is 48.68 kg/m as calculated from the following: Height as of 04/02/23: 1.626 m (5' 4"). Weight as of this encounter: 128.6 kg (283 lb 9.6 oz). Severe Obesity - BMI 40 kg/m2 and above - Severely obese individuals are at a very high risk for developing: * Heart disease * Stroke * Diabetes * High Blood Pressure * High Cholesterol * GERD (acid reflux) * Sleep Apnea * Osteoarthritis * Fatty Liver Disease * Certain Types of Cancers * Gout * Gall Bladder Disease - Weight loss has been shown to decrease weight related medical problems. - A BMI of 40 kg/m2 or higher decreases lifespan by 10 yrs, compared to those with a normal BMI. - A 12-week weight management text message program is also available. Go to [employer] and seethe message under 'BRAIN News' for more information and enrollment. Patient is Instructed to: Diet: * Limit total fat intake to no more than 40 grams per day (low fat diet). * Increase fruits and vegetables to 5 servings per day, combined. * Limited starches (breads, pasta, rice, potatoes, corn, cereals) to 4 servings per day. Avoid Calorie Containing Drinks: * No fruit juices, regular sodas or sweetened drinks. * Water is preferred - 64 ounces per day unless advised of a fluid restriction. * Diet sodas and drinks permitted. Keep Honest, Accurate Food logs: * www.Consumer Agent Portal (CAP).Pureshield * www.[employer] * If you bite it - write it! Weigh Yourself Weekly: * Morning is best. * Try to do this outside your home. * Have a friend/spouse remind you to weigh yourself, accountability to others helps. Perform 30 minutes of physical activity daily: * Can do all at once or 5 minutes 6 times per day * 8, 000-10,000 steps per day using a pedometer * Make it fun! documented in this encounter Progress Notes * Zari Busby PA-C - 05/02/2023 11:50 AM EDT Images from the original note were not included. History of Present Illness Yesenia Hernández is a 42 year old female that presents for Re-Check Nursing Notes: Sharmila Rios CMA 05/02/23 1152 Signed Her insurance expires the end of the month. She wants to get medication refills and a final visit in before that happens. Brief Clinical History Ms. Hernández is a 42 year old woman last seen in Family Medicine 4 months ago (12-15-22). She has h/o Acute systolic heart failure (HCC), heart arrhythmia, heart failure, HFrEF (heart failure with reduced ejection fraction) (HCC), morbid obesity, Morbid obesity due to excess calories (HCC), NICM (nonischemic cardiomyopathy) (HCC), and Paroxysmal atrial fibrillation (HCC). HPI: Yesenia Hernández is a 42 year old female presenting to the office today for recheck. She is going to be losing her health insurance because her lost his job. They are looking for options. She has been working on getting disability. She was denied initially and going to court. She has been working on weight loss. She is eating healthier. She [place] Search to Phone greens to help her as well. She feels bloated all the time. She has been using Wegovy- this helps cut back her appetite. She drinks a lot of water. She hasn't been counting calories but will start doing that as well to see if this aids in weight loss as well. She would like her medications sent in that need sent. She may need assistance with mediation help if she does not have insurance. She will let us know and talk to the pharmacy about options. She had thyroid & insulin checked yesterday which were normal. Current Outpatient Medications Medication Instructions Apixaban (ELIQUIS) 5 mg, Oral, BID(AM/PM) Colestipol (COLESTID) 2 g, Oral, BID(AM/PM) Empagliflozin (JARDIANCE) 10 mg, Oral, Daily(AM) Entresto 97-103 MG Oral Tablet (sacubitril-valsartan 97-103 mg per tab) TAKE BY MOUTH 1 TABLET IN THE MORNING AND 1 TABLET BEFORE BEDTIME. Escitalopram Oxalate 20 MG Oral Tablet (Lexapro) TAKE 1 TABLET BY MOUTH EVERY DAY IN THE MORNING fexofenadine (CLARISA) 180 mg, Oral, Daily(AM) Gabapentin 300 MG Oral Capsule (Neurontin) Take 1 capsule by mouth at night x 1 week. Then advance as tolerated to 1 capsule by mouth twice daily thereafter. Levonorgestrel 20 MCG/24HR Intrauterine Intrauterine Device 1 Each, Intrauterine, ONCE, Inserted 2009? Levothyroxine Sodium 50 MCG Oral Tablet (Levoxyl) TAKE 1 TABLET BY MOUTH IN THE MORNING. (AT LEAST 30 MIN PRIOR TO BREAKFAST OR OTHER MEDS). metoprolol succinate XL (TOPROL XL) 50 mg, Oral, BID(AM/PM) omeprazole (PRILOSEC) 40 mg, Oral, Daily(AM) rosuvastatin (CRESTOR) 5 mg, Oral, Daily(AM) Spironolactone (ALDACTONE) 25 mg, Oral, Daily(AM) Torsemide (DEMADEX) 20 mg, Oral, Daily(AM), Take an additional tablet as needed Triamcinolone Acetonide 0.1 % External Cream (Aristocort) Topical, BID(AM/PM), To affected areafor up to 14 days Wegovy 1.7 mg, Subcutaneous, QWEEK Wegovy 2.4 mg, Subcutaneous, QWEEK Med list reviewed by me today. Physical Exam Vitals: 05/02/23 1143 Temp: 35.8 C (96.4 F) Pulse: 73 SpO2: 96% BP: 130/84 BP Readings from Last 3 Encounters: 05/02/23 130/84 03/21/23 116/64 02/15/23 106/70 Wt Readings from Last 3 Encounters: 05/02/23 128.6 kg (283 lb 9.6 oz) 04/02/23 129.3 kg (285 lb) 03/21/23 129.5 kg (285 lb 6.4 oz) Physical exam: General: Well-Developed. Morbidly obese per BMI 48. Well appearing. No acute distress. HENT: Normocephalic. Atraumatic. Hearing normal. Cardiovascular: RRR. Pulmonary: No respiratory distress. No accessory muscle use. Psych: Mood and affect normal. I have reviewed the following results: CMP, Lipid Panel and TSH Assessment and Plan Morbid obesity due to excess calories (HCC) Discussed counting calories- she will try this on top of current Wegovy, low carbs, increased proteins. Major depressive disorder, single episode, mild (HCC) Stable on current regimen. Continue. Neuropathic pain Numbness and tingling DDD (degenerative disc disease), cervical Refilled gabapentin 90 day supply - Gabapentin 300 MG Oral Capsule (Neurontin); Take 1 Capsule by mouth in the morning and 1 Capsule in the evening. Subclinical hypothyroidism Refilled levothyroxine. Repeat TSH stable. - Levothyroxine Sodium 50 MCG Oral Tablet (Levoxyl); TAKE 1 TABLET BY MOUTH IN THE MORNING. (AT LEAST 30 MIN PRIOR TO BREAKFAST OR OTHER MEDS). History of partial thyroidectomy - Levothyroxine Sodium 50 MCG Oral Tablet (Levoxyl); TAKE 1 TABLET BY MOUTH IN THE MORNING. (AT LEAST 30 MIN PRIOR TO BREAKFAST OR OTHER MEDS). HTN, goal below 140/90 Stable. Continue same. Paroxysmal atrial fibrillation (HCC) Acute systolic heart failure (HCC) NICM (nonischemic cardiomyopathy) (HCC) HFrEF (heart failure with reduced ejection fraction) (HCC) ICD (implantable cardioverter-defibrillator) in place Pending insurance coverage, patient may need to switch to Warfarin or cheaper medications as able. She will follow up pending insurance changes. Wrap-Up Follow-up: Return in about 6 months (around 11/02/2023). | Check-out note: KFD Dr. Mendez in August for F/U Patient counseling on weight management given. documented in this encounter Nursing Notes * Sharmila Rios CMA - 05/02/2023 11:39 AM EDT Her insurance expires the end of the month. She wants to get medication refills and a final visit in before that happens. documented in this encounter Plan of Treatment Upcoming Encounters Date Type Specialty Care Team Description 05/10/2023 Telemedicine Gastroenterology Chencho Cifuentes CRNP [address] [place] [address] 05/30/2023 Office Visit Pain Medicine Frank Garcia DO [address] [place] [phone] 09/07/2023 Office Visit Cardiology Terrie Sanchez CRNP [address] [place] [phone] 10/24/2023 Office Visit Family Medicine Zora Fonseca MD [address] [place] [address] [place] [address] 04/07/2024 Cardiac Studies Cardiology China Padilla [address] [place] [address] Health Maintenance Due Date Last Done Comments Hepatitis B (1 of 3 - 3-dose series) 1981 COVID-19 Vaccine (#1) 05/07/1982 Pneumococcal Vaccine: Pediatrics (0 to 5 Years) and At-Risk Patients (6 to 64 Years) (1 - PCV) 1987 Hepatitis C Screening 1999 HPV/Co-Test 2011 Cervical Cancer Screening 08/10/2019 Pap Smear 08/10/2019 08/10/2016, 02/04/2004 Depression Screening, Annual for Pts 12 and Over 12/21/2020 12/22/2019 Mammogram 2021 Influenza Vaccine (FLU shot) (#1) 2023 09/10/2020, 06/28/2018, 07/30/2017, Additional history exists GFR 09/20/2023 09/20/2022, 03/09, 03/28/2022, Additional history exists TSH 05/01/2024 05/01/2023, 02/05, 01/28/2022, Additional history exists Albumin/Creatinine Ratio 07/18/2024 07/18/2021 Diabetes Screening 03/21/2026 [...] as of this encounter Visit Diagnoses Diagnosis Morbid obesity due to excess calories (HCC)- Primary Major depressive disorder, single episode, mild (HCC) Major depressive disorder, single episode, mild Neuropathic pain Neuralgia, neuritis, and radiculitis, unspecified Numbness and tingling Disturbance of skin sensation DDD (degenerative disc disease), cervical Degeneration of cervical intervertebral disc Subclinical hypothyroidism Other specified acquired hypothyroidism History of partial thyroidectomy Other postprocedural status HTN, goal below 140/90 Unspecified essential hypertension Paroxysmal atrial fibrillation (HCC) Atrial fibrillation Acute systolic heart failure (HCC) Acute systolic heart failure NICM (nonischemic cardiomyopathy) (HCC) Other primary cardiomyopathies HFrEF (heart failure with reduced ejection fraction) ([facility]) ICD (implantable cardioverter-defibrillator) in place documented in this encounter Advance Directives Latest [...] and were consensually agreed upon. Care Teams Eap Clinician Relationship Specialty Start Date End Date Zora Fonseca MD [address] [place] [address] [place] [address] PCP - General Family Medicine 07/16/18 documented as of this encounter
--- OUTSIDE RECORDS SUMMARY | 2023-10-21 16:17 | External Medical Summary | Summary of Care ---
Author Name Unknown Organization [facility] Address [address] [place] [address] Phone [phone] Care Team Providers Care Texture Artist Name Role Phone Zora Fonseca MD Primary Care Prov ider Encounter Details Date Type Department Care Team Description 05/11/2023 Result Scan Unspecified Department Dong Mendez, DO [address] [place] [address] <No scans attached> Allergies No known active [...] (BMI) of 45.0 to 49.9 in adult ([facility]) Inject 2.4 mg under the skin [...] Encounters Date Type Specialty Care Team Description 05/11/2023 Office Visit Family Medicine Zari Busby, PAKarenC [address] [place] [address] [place] [address] 05/30/2023 Office Visit Pain Medicine Frank Garcia DO [address] [place] [phone] 09/07/2023 Office Visit Cardiology Terrie Sanchez CRNP [address] [place] [address] 09/26/2023 [facility] [address] [place] [address] 10/24/2023 Office Visit Family Medicine Zora Fonseca MD [address] [place] [address] [place] [address] 04/07/2024 Cardiac Studies Cardiology [facility] [address] [place] [address] 05/26/2024 Office Visit Gynecology Obstetrics Melinda Walls CRNP [address] [place] [address] Health Maintenance Due Date Last Done Comments [...] Date/Time Associated Diagnosis Comments CARDIOLOGY SCANNED RESULT 05/11/2023 documented in this encounter Results * CARDIOLOGY SCANNED RESULT (05/11/2023) 05/11/2023 Dong Mendez DO OTHER documented in this [...] and were consensually agreed upon. Care Teams Texture Artist Relationship Specialty Start Date End Date Zora Fonseca MD [address] [place] [address] [place] [address] PCP - General Family Medicine 07/16/18 documented as of this encounter
--- OUTSIDE RECORDS SUMMARY | 2023-10-21 16:17 | External Medical Summary ---
Author Name Unknown Address Unknown Organization [id number]:[facility] [place] [address] [facility] [address] Laboratory Report Ordering Provider Test Date Status SRINIVASAN ECHEVARRIA 05/01/2023 10:56:13 Final Observation Date Value Abnormality Reference (Units ) Status TSH 05/01/2023 10:56:13 2.60 0.27-4.20 (uIU/mL) Final Performing Location [facility] [place] [address] [facility] [address]
--- OUTSIDE RECORDS SUMMARY | 2023-10-21 16:17 | External Medical Summary | Summary of Care ---
Author Name Unknown Organization [facility] Address [address] [place] [address] Phone [phone] Care Team Providers Care Upper Lining Cementer Name Role Phone Zora Fonseca MD Primary Care Prov ider Reason for Visit * Reason Onset Date Comments Test Results 05/02/2023 Encounter Details Date Type Department Care Team Description 05/02/2023 Telephone Cardiology, [facility] [address] [facility] [place] [phone] Edy Dawn PA-C [address] [facility] [place] [place] [address] Test Results Allergies No known active allergiesdocumented as of [...] 45.0 to 49.9 in adult (HCC) Inject 1.7 mg under the skin once a week. 3 mL 1 03/07/2023 Active Additional Information Patient not taking.Informant: Patient, Reported on 05/02/2023 Wegovy 2.4 MG/0.75ML Subcutaneous Solution Auto-injector (Semaglutide-Weight Management)Indicati ons:Class 3 severe obesity due to excess calories with serious comorbidity and body mass index (BMI) of 45.0 to 49.9 in adult (HCC) Inject 2.4 mg under the skin once a week. Do not start before April 04, 2023. 9 mL 1 04/04/2023 Active Gabapentin 300 MG Oral Capsule (Neurontin)Indicati [...] encounter Miscellaneous Notes * Telephone Encounter - Scarlet Lauren LPN - 05/02/2023 2:36 PM EDT My chart * Telephone Encounter - Scarlet Lauren LPN - 05/02/2023 2:34 PM EDT ----- Message from Edy Dawn PA-C sent at 05/02/2023 7:03 AM EDT ----- In basket coverage for Daniel Lipids look good, at goal. Liver tests are normal. Continue as prescribed documented in this encounter Plan of Treatment Upcoming Encounters Date Type Specialty Care Team Description 05/10/2023 Telemedicine Gastroenterology Chencho Cifuentes [facility] [address] [facility] [place] [address] 05/30/2023 Office Visit Pain Medicine Frank Garcia DO [address] [place] [phone] 09/07/2023 Office Visit Cardiology Terrie Sanchez CRNP [address] [place] [address] 10/24/2023 Office Visit Family Medicine Zora Fonseca MD [address] [place] [address] [place] [address] 04/07/2024 Cardiac Studies Cardiology [facility] [address] [place] [address] Health Maintenance Due Date Last Done Comments [...] and were consensually agreed upon. Care Teams Upper Lining Cementer Relationship Specialty Start Date End Date Zora Fonseca MD [address] [place] [address] [place] [phone] PCP - General Family Medicine 07/16/18 documented as of this encounter
--- OUTSIDE RECORDS SUMMARY | 2023-10-21 16:17 | External Medical Summary ---
Author Name Unknown Address Unknown Organization [id number]:[facility] [place] [address] [place] [address] Laboratory Report Ordering Provider Test Date Status MILTON CHIRINOS 05/01/2023 10:56:13 Final Observation Date Value Abnormality Reference (Units ) Status Insulin level 05/01/2023 10:56:13 23 3-25 ( uU/mL) Final The above reference interval is based on fasting status. Performing Location LAB[facility]ATORY [facility] - [address] [place] [id number]
--- OUTSIDE RECORDS SUMMARY | 2023-10-21 16:17 | External Medical Summary | Summary of Care ---
Author Name Unknown Organization [facility] Address [address] [place] [address] Phone [phone] Care Team Providers Care Sales Technician Name Role Phone Zora Fonseca MD Primary Care Prov ider Reason for Visit * Reason Comments Outpatient Testing Encounter Details Date Type Department Care Team Description 05/01/2023 Laboratory Laboratory [address] [place] [phone] [facility] [address] [place] [phone] Dyslipidemia, goal LDL below 100; Encounter for long-term (current) use of medications Allergies No known active allergiesdocumented as of this encounter (statuses as of 05/01/2023) Medications Medication Sig Dispensed Refills Start Date End Date Status Levonorgestrel 20 MCG/24HR Intrauterine Intrauterine Device Insert 1 Each into uterus once. Inserted 2009? 1 Each 0 Active Omeprazole 40 MG Oral Capsule Delayed Release Take 1 Capsule by mouth in the morning. 0 Active Fexofenadine HCl 180 MG Oral Tablet Take 1 Tablet by mouth in the morning. 0 10/08/2018 Active Triamcinolone Acetonide 0.1 % External Cream (Aristocort)Indicati ons:Dry skin Apply topically to affected area 2 times a day. To affected area for up to 14 days 45 g 1 12/15/2022 Active Colestipol HCl 1 GM Oral Tablet (Colestid)Indication s:Diarrhea due to malabsorption Take 2 Tablets by mouth in the morning and 2 Tablets before bedtime. 480 Tablet 1 01/10/2023 Active Apixaban 5 MG Oral Tablet (Eliquis) [...] Wegovy 1.7 MG/0.75ML Subcutaneous Solution Auto-injector (Semaglutide-Weight Management)Indicatio ns:Class 3 severe obesity due to excess calories with serious comorbidity and body mass index (BMI) of 45.0 to 49.9 in adult (HCC) Inject 1.7 mg under the skin once a week. 3 mL 1 03/07/2023 Active Wegovy 2.4 MG/0.75ML Subcutaneous [...] twice daily thereafter. 60 Capsule 2 03/14/2023 Active Levothyroxine Sodium 50 MCG Oral Tablet (Levoxyl)Indications :Subclinical hypothyroidism,Histo ry of partial thyroidectomy TAKE 1 TABLET BY MOUTH IN THE MORNING. (AT LEAST 30 MIN PRIOR TO BREAKFAST OR OTHER MEDS). 90 Tablet 0 04/06/2023 Active documented as of this encounter (statuses as of 05/01/2023) Active Problems Problem Noted Date Bilateral carpal tunnel syndrome 023 Paroxysmal atrial fibrillation 3 ICD (implantable cardioverter-defibrilla tor) in place 06/01/2022 REMY (generalized anxiety disorder) 06/01 Mild depression 06/01/2022 HFrEF (heart failure with reduced ejecti on [...] as of this encounter (statuses as of 05/01/2023) Resolved Problems Problem Noted Date Resolved Date Body mass index (BMI) of 45.0 to [...] as of this encounter (statuses as of 05/01/2023) Immunizations Name Administration Dates Next Due PPD [...] Encounters Date Type Specialty Care Team Description 05/02/2023 Office Visit Family Medicine Zari Busby PA-C [address] [place] [address] [place] [address] 05/10/2023 Telemedicine Gastroenterology [facility]ifuentes [facility] [address] [facility] [address] 05/30/2023 Office Visit Pain Medicine Frank Garcia DO [address] [place] [phone] 04/07/2024 [facility] [address] [place] [phone] Pending Results Name Type Priority Associated Diagnoses Date /Time LIPID PANEL WITH DIRECT LDL IF TG IS HIGH Lab Routine Dyslipidemia, goal LDL below 100 05/01/2023 10:56 AM EDT HEPATIC FUNCTION PANEL Lab Routine Dyslipidemia, goal LDL below 100 05/01/2023 10:56 AM EDT TSH WITH FREE T4 IF INDICATED Lab Routine Encounter for long-term (current) use of medications 05/01/2023 10:56 AM EDT Health Maintenance Due Date Last Done Comments Hepatitis B (1 of 3 - 3-dose series) 1981 COVID-19 Vaccine (#1) 05/07/1982 Pneumococcal Vaccine: Pediatrics (0 to 5 Years) and At-Risk Patients (6 to 64 Years) (1 - PCV) 1987 Hepatitis C Screening 1999 Depression Screening, Annual for Pts 12 and Over 12/21/2020 12/22/2019 Pap Smear 08/10/2021 08/10/2016, 02/04/2004 Mammogram 2021 TSH 02/20/2023 02/20/2022, 01/07, 07/26/2021, Additional history exists Influenza Vaccine (FLU shot) (#1) 2023 09/10/2020, 06/28/2018, 07/30/2017, Additional history exists GFR 09/20/2023 09/20/2022, 03/09, 03/28/2022, Additional history exists Albumin/Creatinine Ratio 07/18/2024 07/18/2021 Diabetes Screening 03/21/2026 03/21/2023, 1 11/21/2021, 09/20/2022, Additional history exists Lipid Panel 02/16/2028 02/15/2023, 07/08, 08/03/2020 DTaP,Tdap,and Td Vaccines (2 - Td or Tdap) 03/07/2028 03/07/2018 IUD 7-Year 12/15/2028 12/15/2021 GARDASIL-HPV IMMUNIZATION SERIES Aged Out No longer eligible based on patient's age to complete this topic MENINGOCOCCAL (MENACTRA/MENVEO) Aged Out No longer eligible based on patient's age to complete this topic documented as of this encounter Medical Devices Not on filedocumented as of this encounter Visit Diagnoses Diagnosis Dyslipidemia, goal LDL below 100 Other and unspecified hyperlipidemia Encounter for long-term (current) use of medications Encounter for long-term (current) use of other medications documented in this encounter Advance Directives Latest [...] and were consensually agreed upon. Care Teams Sales Technician Relationship Specialty Start Date End Date Zora Fonseca MD [address] [place] [address] [place] [address] PCP - General Family Medicine 07/16/18 documented as of this encounter
--- OUTSIDE RECORDS SUMMARY | 2023-10-21 16:17 | External Medical Summary ---
Author Name Unknown Address Unknown Organization [id number]:[facility] [place] [address] [place] [address] Laboratory Report Ordering Provider Test Date Status LEDA,OMID 05/01/2023 10:56:13 Final Observation Date Value Abnormality Reference (Units ) Status Albumin 05/01/2023 10:56:13 4.0 3.8-5.0 (g/dL) Final AST (Aspartate aminotransferase) 05/01/2023 10:56:13 16 10-35 (U/L) Final Alk Phos 05/01/2023 10:56:13 70 35-130 (U/L) Final ALT (Alanine aminotransferase) 05/01/2023 10:56:13 19 10-35 (U/L) Final Bilirubin, Total 05/01/2023 10:56:13 0.4 <=1.2 (mg/dL) Final Bilirubin, Direct 05/01/2023 10:56:13 <0.2 0.0-0.3 (mg/dL) Final Protein 05/01/2023 10:56:13 6.3 6.0-8.3 (g/dL) Final Performing Location [facility] [place] [address] [place] [address]
--- OUTSIDE RECORDS SUMMARY | 2023-10-21 16:17 | External Medical Summary | Summary of Care ---
Author Name Unknown Organization [facility] Address [address] [place] [address] Phone [phone] Care Team Providers Care Paper Carrier Name Role Phone Zora Fonseca MD Primary Care Prov ider Reason for Visit * Reason Comments Weight Management Encounter Details Date Type Department Care Team Description 05/10/2023 Telemedicine Nutrition & Weight Management, [place] [address] [place] [address] Chencho Cifuentes CRNP [address] [place] [address] Class 3 severe obesity due to excess calories with serious comorbidity and body mass index (BMI) of 45.0 to 49.9 in adult ([facility])*; HFrEF (heart failure with reduced ejection fraction) ([facility]); Idiopathic cardiomyopathy ([facility]); Pseudotumor cerebri Allergies No known active allergiesdocumented as of this encounter (statuses as of 05/10/2023) Medications Medication Sig Dispensed Refills Start Date [...] THE MORNING 90 Tablet 1 3 Active Wegovy 2.4 MG/0.75ML Subcutaneous Solution Auto-injector (Semaglutide-Weigh t Management)Indicat ions:Class 3 severe obesity due to excess calories with serious comorbidity and body mass index (BMI) of 45.0 to 49.9 in adult ([facility]) Inject 2.4 mg under the skin once a week. Do not start before April 04, 2023. 9 mL 1 3 Active Gabapentin 300 MG Oral [...] at bedtime. 90 Tablet 5 3 Active Wegovy 1.7 MG/0.75ML Subcutaneous Solution Auto-injector (Semaglutide-Weigh t Management)Indicat ions:Class 3 severe obesity due to excess calories with serious comorbidity and body mass index (BMI) of 45.0 to 49.9 in adult ([facility]) Inject 1.7 mg under the skin once a week. 3 mL 1 3 05/10/20 23 Discontinued documented as of this encounter (statuses as of 05/10/2023) Active Problems Problem Noted Date Major depressive [...] as of this encounter (statuses as of 05/10/2023) Resolved Problems Problem Noted Date Resolved Date [...] as of this encounter (statuses as of 05/10/2023) Immunizations Name Administration Dates Next Due PPD [...] - Inhaled Oxygen Concentration - - Weight 123.8 kg (273 lb) 05/10/2023 9:47 AM EDT self reported Height - - Body Mass Index 46.86 04/02/2023 11:56 AM EDT documented in this [...] as of this encounter Progress Notes * Chencho Cifuentes, MARTINEZ - 05/10/2023 9:44 AM EDT [facility] Note Patient location: HOME. I was in a hospital or clinic location. After connecting through [employer],patient was verified with two unique identifiers. 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 Her weight at that time was 297 lbs. Wt Readings from Last 6 Encounters: 05/10/23 123.8 kg (273 lb) 05/02/23 128.6 kg (283 lb 9.6 oz) 04/02/23 129.3 kg (285 lb) 03/21/23 129.5 kg (285 lb 6.4 oz) 03/07/23 129.3 kg (285 lb) 02/20/23 132.5 kg (292 lb) Patient is receiving ongoing education regarding dietary and physical modifications for weight loss. Patient is interested in the following treatment options for obesity: medical management and possible medication use. The patient was last seen in this clinic 02/14/23 (285#). Since that time the patient's weight has decreased 12 pounds. The patient's total weight change is -24 pounds. Review of Systems: The patient denies any chest pain, shortness of breath, palpitations or ankle edema. Since her lastvisit there have been no problems with Abdominal pain, Binge Eating, Depression, Diarrhea, Dizziness, Hair loss, Headaches and Insomnia. 05/10/23 Reports experiencing rash on stomach 2 days after injection, has been alternating sites to reduce this. Currently on Wegovy 2.4 mg has found to have significantly helped with decrease cravings for food Current weight 273 lb Started powdered greens supplement which helped with bloating Recently switched insurance at end of April as lost insurance coverage through employer. -discussed incorporating calorie tracking to help better break through weight loss plateaus. 03/07/2023 - still feels bloated/full - has lost about same 10 lbs since start - Did extra month of 1 mg due to nausea. Does notice some constipation which was - goes to peanut picker 1.7 mg on Sunday. - continues to be tired. Has been getting hot out which makes it harder to breath. on sevenday break and planning to go to walk 01/01/2023 - started wegovy, on 0.5 mg once a week and on third dose. Is doing well and has helped curb appetite. No AE. - has been having more meals from home Current Medications: Current Outpatient Medications Medication Sig [...] mouth in the morning. 90 Tablet 3 Metoprolol Succinate ER 50 MG Oral Tablet Extended Release 24 Hour (toPROL XL) Take 1 Tablet bymouth in the morning and 1 Tablet before bedtime. 180 Tablet 3 Torsemide 20 MG Oral Tablet (Demadex) Take 1 Tablet by mouth in the morning. Take an additionaltablet as needed. 200 Tablet 3 Rosuvastatin Calcium 5 MG Oral Tablet (Crestor) Take 1 Tablet by mouth in the morning. 90 Tablet 3 Escitalopram Oxalate 20 MG Oral Tablet (Lexapro) TAKE 1 TABLET BY MOUTH EVERY DAY IN THE MORNING 90 Tablet 1 Wegovy 1.7 MG/0.75ML Subcutaneous Solution Auto-injector (Semaglutide-Weight Management) Inject1.7 mg under the skin once a week. (Patient not taking: Reported on 05/02/2023) 3 mL 1 Wegovy 2.4 MG/0.75ML Subcutaneous Solution Auto-injector (Semaglutide-Weight Management) Inject2.4 mg under the skin once a week. Do not start before April 04, 2023. 9 mL 1 Gabapentin 300 MG Oral Capsule (Neurontin) Take 1 Capsule by mouth in the morning and 1 Capsulein the evening. 180 Capsule 3 Levothyroxine Sodium 50 MCG Oral Tablet (Levoxyl) TAKE 1 TABLET BY MOUTH IN THE MORNING. (AT LEAST 30 MIN PRIOR TO BREAKFAST OR OTHER MEDS). 90 Tablet 1 Omeprazole 40 MG Oral Capsule Delayed Release (PriLOSEC) Take 1 Capsule by mouth in the morning. 90 Capsule 1 Montelukast Sodium 10 MG Oral Tablet (Singulair) Take 1 Tablet by mouth at bedtime. 90 Tablet 5 No current facility-administered medications for this visit. Water intake: yes Prescribed diet: [id number] Low Fat CHO Modified Diet Current diet: Decreasing intake with meals, focusing on protein intake. Food logs: No Type of exercise: ADL - trying to go for walks before gets hot - walking in stores Exercise: Times per week: varies Minutes per day: varies Weight loss Pharmacotherapy: yes Semaglutide 2.4 mg weekly Wt 123.8 kg (273 lb) Comment: self reported | BMI 46.86 kg/m | BSA 2.36 m PHYSICAL EXAMINATION: General: NAD Lungs: breathing comfortably; no conversational dyspnea Psych: normal mood and affect Neuro: speech normal pitch and speed, AAOx3 Assessment and Plan: Abnormal weight gain / Body mass index is 46.86 kg/m. / Morbid obesity : - Would like to proceed with medical management and possible medication use - Barriers are consistency - Motivators are feeling better overall, avoiding/reducing co-morbid conditions - The patient was encouraged to to avoid all fruit juices and regular sodas, consume at least 64 ounces of water per day, keep food logs and get weighed on a weekly basis. They were encouraged to increase physical activity as prescribed. -discussed incorporating calorie tracking to help better break through weight loss plateaus. Goals: 1. Increase wegovy 2. Continue exercise as able 3. Continue lifestyle changes Bariatric Surgery: She would prefer not to pursue at this time Medication Options: - GLP-1 agonists: continue wegovy at this time. Presently at 2.4mg once weekly. Her thyroid bx was negative for malignancy - Phentermine/Topamax: phentermine CI dt her cardiac hx. topamax option, bruce given she has pseudotumor - Wellbutrin/Naltrexone: use with caution dt chance of worsening her HTN - Metformin: possible, pt ordered to get insulin level checked but doing well on wegovy Patient recently changed insurance coverage at end of April, will plan to continue on current medication regimen as long as covered. If Wegovy no longer covered, can trial Ozempic instead if covered, however explained to patient alternative options may be limited due to coverage/PMHx. Pt expressed un derstanding. Plan: - Keep a food log (use mariah [employer]) - Goal 0981-3220 calories/day with goal protein 100-120 g/day and carbohydrates 100-120g/day. - Drink >64 oz of water daily. - Find low carb/high protein/Mediterranean recipes at www.[employer], www.DiscountDoc, [employer] (mariah) - Don't skip meals. Eat breakfast within 1 hour of waking up. - Choose whole, natural foods (fruits, vegetables, lean proteins, & healthy fats ie avocados, nuts, olive oil). - Avoid rice, pasta, bread, potato, processed/refined foods & sugary foods/beverages - Replace carb and fat with a protein source in each meal - Snacks should be around 100-200 calories between meals. - Increase vegetables to at least 3 servings daily and fruits 1 serving daily. - Goal of 30 minutes of exercise 5 times a week. It can be divided into 10-15 min sessions each (use apps [employer], Home Workout) - Do resistance training (weights, resistance bands) 2 times a week - Be mindful of eating; chew each bite 20-30 times before swallowing. Eat slowly, spend 20-30 minutes per meal. HFrEF (heart failure with reduced ejection fraction) (HCC) Idiopathic cardiomyopathy (HCC) Paroxysmal A-fib ICD (implantable cardioverter-defibrillator) in place - follows cardiology in [facility] - On Entresto , Eliquis, Spironolactone, Aldactone Diarrhea due to malabsorption IBS-D - s/p cholecystectomy - Takes colestipol PRN Pseudotumor cerebri - can consider topamax in future Thyromegaly - had thyroid bx which was benign At risk for obstructive sleep apnea - sleep medicine has not yet reached out. Has referral in place The patient agreed to try the plan as discussed and return in 3-4 months. They were encouraged to call or send a patient portal message in the meantime with any questions or concerns prior to their next clinic visit. I spent a total of 22 on the date of service in preparation, [...] prepare the patient to achieve future goals. MARTINEZ Massey documented in this encounter Plan of Treatment Upcoming Encounters Date Type Specialty Care Team Description 05/11/2023 Office Visit Family Medicine Zari Busby PA-C [address] [place] [address] [place] [id number] 05/30/2023 Office Visit Pain Medicine Frank Garcia DO [address] [place] [phone] 09/07/2023 Office Visit Cardiology Terrie Sanchez CRNP [address] [place] [id number] 10/24/2023 Office Visit Family Medicine Zora Fonseca MD [address] [place] [address] [place] [id number] 04/07/2024 [facility] [address] [place] [id number] 05/26/2024 Office Visit Gynecology Obstetrics Melinda Walls CRNP [address] [place] [id number] Health Maintenance Due Date Last Done Comments [...] primary cardiomyopathies Pseudotumor cerebri Benign intracranial hypertension documented in this encounter Advance Directives Latest [...] and were consensually agreed upon. Care Teams Paper Carrier Relationship Specialty Start Date End Date Zora Fonseca MD [address] [place] [address] [place] [id number] PCP - General Family Medicine 07/16/18 documented as of this encounter"
--- NOTE | 2023-10-21 16:18 | ED Triage Note ---
Date of Service October 21, 2023 Provider in Triage Author: Veronica Gomez History of Present Illness This patient was briefly evaluated while in triage. An abbreviated physical exam was performed. This patient is a 42-year-old Female who presents to the ED for evaluation of left-sided chest pain, radiates into the left arm. Has history of CHF and pacer/defibrillator. Feels SOB, fatigue, and dizzy. No syncope. Hands have been swollen. Takes Eliquis. Physical Exam CONSTITUTIONAL: No acute distress. Well appearing. RESPIRATORY: Clear to auscultation bilaterally, no wheezes or rales. Equal expansion bilaterally. CARDIOVASCULAR: Regular rate and rhythm with no murmurs, rubs or gallops. Normal peripheral perfusion. GASTROINTESTINAL: Soft, nontender. NEUROLOGIC: Alert and oriented X 4 with normal affect. Normal speech. Normal gait observed. Initial orders for labs and / or imaging were placed and patient was placed in the waiting area until a bed is available. Please see further documentation for the full ED course.
[2023-10-21 16:49] LABS: Basophils # (auto) 0.04 K/uL (0.00-0.20); Basophils % (auto) 0.3 %; Eosinophils # (auto) 0.12 K/uL (0.00-0.50); Hematocrit (blood only) 43.1 % (37.0-47.0); Hemoglobin 14.7 g/dl (12.0-16.0); Immature Granulocytes # (auto) 0.03 K/uL (0.01-0.20); Immature Granulocytes % (auto) 0.2 %; Lymphocytes # (auto) 2.77 K/uL (1.20-3.40); Mean Corpuscular Hemoglobin 31.1 pg (25.0-34.0); Mean Corpuscular Hgb Conc 34.1 g/dL (32.0-36.0); Mean Corpuscular Volume 91.1 fL (80.0-100.0); Mean Platelet Volume 10.9 fL (9.4-12.4); Monocytes # (auto) 0.64 K/uL (0.11-0.59); Monocytes % (auto) 5.3 %; Neutrophils # (auto) 8.42 K/uL (1.40-6.50); Neutrophils % (auto) 70.2 %; Platelet Count 247 K/uL (130-400); RDW Coefficient of Variation 13.4 % (11.5-14.5); RDW Standard Deviation 44.9 fL (36.4-46.3); Red Blood Count 4.73 M/uL (4.20-5.40); White Blood Count 12.02 K/ul (4.8-10.8)
[2023-10-21 17:02] LABS: Albumin Globulin Ratio 1.2 (0.9-2); Albumin Level 3.7 gm/dl (3.4-5.0); BUN Creatinine Ratio 16.3 (10-20); Bilirubin,Total 0.4 mg/dl (0.2-1.0); Creatinine Clr Calc Pharmacy 114.6 ml/min; Est GFR (African American) 97.3 ml/min; Est GFR (Non-African American) 83.9 ml/min; Globulin 3.1 gm/dl (2.5-4.0); Potassium 3.9 mmol/L (3.5-5.1); Total Protein 6.8 gm/dl (6.0-8.3)
[2023-10-21 17:08] LABS: Pregnancy Test, Serum Negative (Negative); Troponin I High Sensitivity 12.1 pg/ml (0-14)
[2023-10-21 17:12] LABS: D Dimer 350 ug/L FEU (0-500); Partial Thromboplastin Time 29 Seconds (21-31); Prothrombin Time 10.9 Seconds (9.0-12.0)
[2023-10-21 17:17] LABS: Thyroid Stimulating Hormone 3.207 uIu/ml (0.300-4.500)
--- NOTE | 2023-10-21 17:33 | XRay Report ---
SINGLE VIEW CHEST CLINICAL HISTORY: Atypical chest pain. FINDINGS: An AP, portable, upright chest radiograph is compared to chest x-ray and chest CT dated 04/08. A 2-lead cardiac AICD is unchanged in position. The heart is enlarged. The pulmonary vasculat ure is noncongested. The lungs and pleural spaces are clear. No pneumothorax is seen. The bony thorax is grossly intact. IMPRESSION: 1. Cardiomegaly and AICD without radiographic evidence of congestive failure. 2. No airspace consolidation or pleural effusion is identified. ACT 112: Negative or not required by law. Electronically signed by: Jaswant Parekh M.D. 10/21/2023 5:32 PM
--- NOTE | 2023-10-21 17:56 | Emergency Department Note ---
Impression & Plan Left-sided chest pain, Leukocytosis ED Provider Note NAME: AJMES COHEN AGE: 42 SEX: Female INFORMANT: Patient ED PROVIDER(S): Cody Jasso MD CHIEF COMPLAINT: Chest pain PLAN: Disposition: Admitted Outpatient prescription management: none Referral: None MEDICAL DECISION MAKING: Patient presented with left-sided chest pain. She has a significant cardiac history. Pacemaker was interrogated and no events were noted over the recent weeks. Patient had a sinus rhythm on ECG. Lateral T wave inversion was more pronounced than prior and sinus rhythm had replaced a paced rhythm. Her CBC revealed a mild leukocytosis. Chemistry panel was unremarkable. Cardiac troponin and BNP unremarkable. Coagulation studies negative. Chest x-ray was done and was negative. Discussed the patient's presentation and results with [facility] cardiology, Dr. Kirby. We elected to add inflammatory markers and felt CT imaging was appropriate based upon her history and symptomatology. He and I also discussed observing the patient overnight and getting serial troponin measurements. Patient underwent CT imaging and no PE was noted. Normal pericardium. No pneumonia. Patient's ESR was normal. CRP mildly elevated. Further management in the hospital was deemed appropriate and consultation was made with Dr. Nj, [facility] hospitalist service. Patient was evaluated in the ER and admitted for further management. Care/management discussed with: manager java Level of care consideration(s): After review of the information above and other included data, I feel the patient requires escalation of care to admission. Triage Nursing notes: reviewed and agree them. Vital Signs: reviewed and remarkable for no significant abnormalities Additional History obtained from: none Chronic Medical/Social Conditions affecting care: CHF, pacemaker Prior/ Outside/ External records reviewed: none Differential Diagnosis: Cardiac ischemia, CHF aortic dissection, pulmonary embolism, pneumothorax, pneumonia, pericarditis, myocarditis, esophageal rupture, GERD, cholecystitis, pancreatitis, musculoskeletal, as well as other pathologies. Diagnostics, independently interpreted by me: ECG: Twelve-lead ECG reveals sinus rhythm with PVCs at 98 bpm. More pronounced lateral T wave inversions when compared to 05/04/2022. Also sinus rhythm has replaced paced rhythm. Cardiac Monitoring: Cardiac monitoring ordered by me: The patient was placed on continuous cardiac monitoring and observed. It revealed a normal sinus rhythm at 90 beats per minute without ectopy or evidence of dysrhythmia. Medical decision rules: None Imaging studies: Chest x-ray. Findings: A chest x-ray was performed and revealed no pneumothorax, effusion, infiltrate, pulmonary edema, free air under the diaphragm, or wide mediastinum. ICD present. Impression: No acute disease. HPI: 42 year old Female arrives for evaluation of left-sided chest pain that has been present since yesterday. Pain does radiate into her back and down into the left arm. Pain is rated as a 4 out of 10. Patient also notes the presence of fatigue and shortness of breath. She notes some swelling in her hands but denies any lower extremity swelling. Patient has a significant history with CHF and pacer/defibrillator. She also has a history of blood clot secondary to cancer surgery. Patient is currently taking Eliquis. Denies any recent travel or leg pain/swelling. Pt denies LOC, headache, fevers, chills, diaphoresis, visual changes, neck pain, nausea, vomiting, abdominal pain, back pain, melena, hematochezia, urinary symptoms, numbness, weakness, lymphadenopathy, rash, or other complaints. PAST MEDICAL HISTORY: See Below, CHF PAST SURGICAL HISTORY: See Below, defibrillator pacer SOCIAL HISTORY: See Below, non-smoker HOME MEDICATIONS: See Below ALLERGIES: See Below VITALS: See Below PHYSICAL EXAMINATION: GENERAL: Awake, alert, mildly uncomfortable-appearing, in no distress HENT: Normocephalic, atraumatic. Oropharynx unremarkable. EYES: Normal conjunctiva. Sclera non-icteric. NECK: Inspection normal. Non-tender. Supple. No nuchal rigidity. FROM. No masses. RESPIRATORY: Clear to auscultation. No wheezes. No rales. Normal respiratory effort. CARDIAC: Normal rate. Normal rhythm. No murmurs. No rubs. Extremities warm and well perfused. Pulses equal. No JVD. GI: Soft, non-distended. No tenderness to palpation. No rebound or guarding. No masses. RECTAL: Deferred. MUSCULOSKELETAL: Atraumatic. Chest examination reveals no tenderness. The back is symmetrical on inspection without obvious abnormality. There is no CVA tenderness to palpation. No joint edema. Skin graft scar noted in the right upper back. LOWER EXTREMITIES: Calves are equal size bilaterally and non-tender. No edema. No discoloration. Healed skin graft noted in the right thigh. NEURO: Normal sensorium. No sensory or motor deficits noted. SKIN: No rash or jaundice noted. PROCEDURES: none CRITICAL CARE: none OBSERVATION NOTE: none Past Med/Surg History Medical History (Updated 10/21/23 @ 17:56 by Cody Jasso MD) Deep vein thrombophlebitis of left leg Osteosarcoma Depression Hypertension Surgical History S/P thyroidectomy Social History Smoking Status: Never smoker Hx Alcohol Use: No Hx Substance Use: No Preferred Language: Norwegian Communication Ability: Effective Metal Bonder Required: No Beliefs That Will Affect Care: None Current Living Situation: Spouse and Family Feels Safe at Home: Yes Assistive Devices: None Allergies Allergies Allergy/AdvReac Type Severity Reaction Status Date / Time No Known Allergies Allergy Unknown Verified 10/21/23 16:59 Home Meds Home Medications Medication Instructions Recorded Confirmed empagliflozin 10 mg tablet 10 mg PO QAM 04/19/22 10/21/23 (Jardiance) escitalopram oxalate 20 mg tablet 20 mg PO DAILY 04/19/22 10/21/23 (Lexapro) levothyroxine 50 mcg tablet 50 mcg PO DAILYBB 04/19/22 10/21/23 metoprolol succinate 50 mg 75 mg PO BID 04/19/22 10/21/23 tablet,extended release 24 hr sacubitril 97 mg-valsartan 103 mg 1 tab PO BID 04/19/22 10/21/23 tablet (Entresto) spironolactone 25 mg tablet 25 mg PO QAM 04/19/22 10/21/23 (Aldactone) torsemide 20 mg tablet 20 mg PO Q OTHER DAY 04/19/22 10/21/23 apixaban 5 mg tablet (Eliquis) 5 mg PO BID 10/21/23 10/21/23 gabapentin 300 mg capsule 300 mg PO BID 10/21/23 10/21/23 hydroxyzine HCl 25 mg tablet 25 mg PO Q6H PRN Anxiety 10/21/23 10/21/23 levonorgestrel 20.4 mcg/24 hrs (8 20.4 mcg intrauterine CONTINOUS 10/21/23 10/21/23 yrs) 52 mg intrauterine device montelukast 10 mg tablet 10 mg PO HS 10/21/23 10/21/23 (Singulair) omeprazole 40 mg capsule,delayed 40 mg PO HS 10/21/23 10/21/23 release rosuvastatin 5 mg tablet 5 mg PO QAM 10/21/23 10/21/23 semaglutide (weight loss) 2.4 2.4 mg subcut WK 10/21/23 10/21/23 mg/0.75 mL subcutaneous pen injector (Weabdoulaey) Results & Data (ED) Vital Signs Vital Signs - 24 hr 10/21/23 16:16 10/21/23 16:31 10/21/23 16:35 Temperature 36.7 C Temperature Source Temporal Artery Scan Pulse Rate 86 87 90 Pulse Rate from SpO2 Sensor 92 H Respiratory Rate 20 17 Respiratory Effort / Characteristics Non-Labored Spontaneous Respiratory Depth Normal Respiratory Pattern Regular Blood Pressure 104/79 160/100 H Blood Pressure Mean 87 120 Blood Pressure Position Sitting Pulse Oximetry 96 96 Oxygen Delivery Method Room Air Sepsis Recent Fever Within 48 Hours No Sepsis New/Unexplained Change in Mental Status No Sepsis Action Taken by Nursing No Action Required 10/21/23 17:00 10/21/23 18:00 Temperature Temperature Source Pulse Rate 94 H 82 Pulse Rate from SpO2 Sensor 81 82 Respiratory Rate 21 19 Respiratory Effort / Characteristics Respiratory Depth Respiratory Pattern Blood Pressure 127/104 H 139/100 Blood Pressure Mean 111 113 Blood Pressure Position Pulse Oximetry 95 96 Oxygen Delivery Method Sepsis Recent Fever Within 48 Hours Sepsis New/Unexplained Change in Mental Status Sepsis Action Taken by Nursing Laboratory Data 10/21/23 16:26 10/21/23 16:26 Lab Results 10/21/23 10/21/23 10/21/23 Range/Units 16:26 18:23 18:27 WBC 12.02 H (4.8-10.8) K/ul RBC 4.73 (4.20-5.40) M/uL Hgb 14.7 (12.0-16.0) g/dl Hct 43.1 (37.0-47.0) % MCV 91.1 (80.0-100.0) fL MCH 31.1 (25.0-34.0) pg MCHC 34.1 (32.0-36.0) g/dL RDW Std Deviation 44.9 (36.4-46.3) fL RDW Coeff of Vandana 13.4 (11.5-14.5) % Plt Count 247 (130-400) K/uL MPV 10.9 (9.4-12.4) fL Immature Gran % (Auto) 0.2 % Neut % (Auto) 70.2 % Lymph % (Auto) 23.0 % Camb[place] % (Auto) 5.3 % Eos % (Auto) 1.0 % Baso % (Auto) 0.3 % Neut # (Auto) 8.42 H (1.40-6.50) K/uL Lymph # (Auto) 2.77 (1.20-3.40) K/uL [place] # (Auto) 0.64 H (0.11-0.59) K/uL Eos # (Auto) 0.12 (0.00-0.50) K/uL Baso # (Auto) 0.04 (0.00-0.20) K/uL Immature Gran # (Auto) 0.03 (0.01-0.20) K/uL ESR 11 (0-20) mm/hr PT 10.9 (9.0-12.0) Seconds INR 1.0 (0.9-1.1) APTT 29 (21-31) Seconds PTT Ratio 1.0 D-Dimer 350 (0-500) ug/L FEU Sodium 136 (136-145) mmol/L Potassium 3.9 (3.5-5.1) mmol/L Chloride 105 (98-107) mmol/L Carbon Dioxide 24 (21-32) mmol/L Anion Gap 7 (3-11) BUN 14 (6-23) mg/dl Creatinine 0.86 (0.6-1.2) mg/dl Est Cr Clr Drug Dosing 114.6 ml/min Est GFR ( Amer) 97.3 ml/min Est GFR (Non-Af Amer) 83.9 ml/min BUN/Creatinine Ratio 16.3 (10-20) Glucose 111 H (70-99(Fasting)) mg/dl Calcium 9.0 (8.6-10.3) mg/dl Total Bilirubin 0.4 (0.2-1.0) mg/dl AST 11 L (13-39) U/L ALT 11 (7-52) U/L Alkaline Phosphatase 64 (34-104) U/L Troponin I High Sens 12.1 (0-14) pg/ml C-Reactive Protein 0.98 H (0-0.5) mg/dl B-Natriuretic Peptide 59 (0-100) pg/ml Total Protein 6.8 (6.0-8.3) gm/dl Albumin 3.7 (3.4-5.0) gm/dl Globulin 3.1 (2.5-4.0) gm/dl Albumin/Globulin Ratio 1.2 (0.9-2) Lipase 25 (11-82) U/L Procalcitonin < 0.05 (0-0.5) ng/ml TSH 3.207 (0.300-4.500) uIu/ml HCG, Qual Negative (Negative) Adenovirus (PCR) (NotDetected) B. pertussis DNA (PCR) (NotDetected) B.parapertussis DNA PCR (NotDetected) C. pneumoniae DNA (PCR) (NotDetected) Coronavirus OC43 (PCR) (NotDetected) Coronavirus HKU1 (PCR) (NotDetected) Coronavirus 229E (PCR) (NotDetected) SARS-CoV-2 (PCR) (NotDetected) Coronavirus NL63 (PCR) (NotDetected) Human Metapneumovir PCR (NotDetected) Influenza Type A (PCR) (NotDetected) Influenza Type B (PCR) (NotDetected) M. pneumoniae (PCR) (NotDetected) Parainfluenza 1 (PCR) (NotDetected) Parainfluenza 2 (PCR) (NotDetected) Parainfluenza 3 (PCR) (NotDetected) Parainfluenza 4 (PCR) (NotDetected) RSV (PCR) (NotDetected) Entero/Rhino (PCR) (NotDetected) 10/21/23 Range/Units Unknown WBC (4.8-10.8) K/ul RBC (4.20-5.40) M/uL Hgb (12.0-16.0) g/dl Hct (37.0-47.0) % MCV (80.0-100.0) fL MCH (25.0-34.0) pg MCHC (32.0-36.0) g/dL RDW Std Deviation (36.4-46.3) fL RDW Coeff of Vandana (11.5-14.5) % Plt Count (130-400) K/uL MPV (9.4-12.4) fL Immature Gran % (Auto) % Neut % (Auto) % Lymph % (Auto) % [place] % (Auto) % Eos % (Auto) % Baso % (Auto) % Neut # (Auto) (1.40-6.50) K/uL Lymph # (Auto) (1.20-3.40) K/uL [place] # (Auto) (0.11-0.59) K/uL Eos # (Auto) (0.00-0.50) K/uL Baso # (Auto) (0.00-0.20) K/uL Immature Gran # (Auto) (0.01-0.20) K/uL ESR (0-20) mm/hr PT (9.0-12.0) Seconds INR (0.9-1.1) APTT (21-31) Seconds PTT Ratio D-Dimer (0-500) ug/L FEU Sodium (136-145) mmol/L Potassium (3.5-5.1) mmol/L Chloride (98-107) mmol/L Carbon Dioxide (21-32) mmol/L Anion Gap (3-11) BUN (6-23) mg/dl Creatinine (0.6-1.2) mg/dl Est Cr Clr Drug Dosing ml/min Est GFR ( Amer) ml/min Est GFR (Non-Af Amer) ml/min BUN/Creatinine Ratio (10-20) Glucose (70-99(Fasting)) mg/dl Calcium (8.6-10.3) mg/dl Total Bilirubin (0.2-1.0) mg/dl AST (13-39) U/L ALT (7-52) U/L Alkaline Phosphatase (34-104) U/L Troponin I High Sens (0-14) pg/ml C-Reactive Protein (0-0.5) mg/dl B-Natriuretic Peptide (0-100) pg/ml Total Protein (6.0-8.3) gm/dl Albumin (3.4-5.0) gm/dl Globulin (2.5-4.0) gm/dl Albumin/Globulin Ratio (0.9-2) Lipase (11-82) U/L Procalcitonin (0-0.5) ng/ml TSH (0.300-4.500) uIu/ml HCG, Qual (Negative) Adenovirus (PCR) Not Detected (NotDetected) B. pertussis DNA (PCR) Not Detected (NotDetected) B.parapertussis DNA PCR Not Detected (NotDetected) C. pneumoniae DNA (PCR) Not Detected (NotDetected) Coronavirus OC43 (PCR) Not Detected (NotDetected) Coronavirus HKU1 (PCR) Not Detected (NotDetected) Coronavirus 229E (PCR) Not Detected (NotDetected) SARS-CoV-2 (PCR) Not Detected (NotDetected) Coronavirus NL63 (PCR) Not Detected (NotDetected) Human Metapneumovir PCR Not Detected (NotDetected) Influenza Type A (PCR) Not Detected (NotDetected) Influenza Type B (PCR) Not Detected (NotDetected) M. pneumoniae (PCR) Not Detected (NotDetected) Parainfluenza 1 (PCR) Not Detected (NotDetected) Parainfluenza 2 (PCR) Not Detected (NotDetected) Parainfluenza 3 (PCR) Not Detected (NotDetected) Parainfluenza 4 (PCR) Not Detected (NotDetected) RSV (PCR) Not Detected (NotDetected) Entero/Rhino (PCR) Not Detected (NotDetected) Administered Medications Discontinued Medications Ioversol (Optiray 320 125ml) 119 ml IV ONCE ONE Stop: 10/21/23 18:54 Last Admin: 10/21/23 18:53 Dose: 119 ml Documented By: EDK Imaging Data Radiologist's Impression: Chest X-Ray 10/21/23 16:19 SINGLE VIEW CHEST CLINICAL HISTORY: Atypical chest pain. FINDINGS: An AP, portable, upright chest radiograph is compared to chest x-ray and chest CT dated 05/04/2022. A 2-lead cardiac AICD is unchanged in position. The heart is enlarged. The pulmonary vasculature is noncongested. The lungs and pleural spaces are clear. No pneumothorax is seen. The bony thorax is grossly intact. IMPRESSION: 1. Cardiomegaly and AICD without radiographic evidence of congestive failure. 2. No airspace consolidation or pleural effusion is identified. ACT 112: Negative or not required by law. Electronically signed by: Jaswant Parekh M.D. 10/21/2023 5:32 PM Chest CTA 10/21/23 18:24 CT ANGIOGRAM OF THE CHEST CLINICAL HISTORY: Atypical/left-sided chest pain. COMPARISON STUDY: Chest x-ray dated 10/21/2023. Chest CT dated 05/04/2022. TECHNIQUE: Following the IV administration of 119 cc of Optiray 320, CT angiogram of the chest was performed from the upper abdomen to the thoracic inlet utilizing the pulmonary embolus protocol. Images are reviewed in the axial, sagittal, and coronal planes. 3-D MIPS images are created and assessed. IV contrast was administered without complication. A dose lowering technique was utilized adhering to the principles of ALARA. CT DOSE: 888.19 mGy.cm FINDINGS: Thyroid: Imaged portions of the thyroid gland are normal in size and attenuation. Thoracic aorta: The thoracic aorta is normal in caliber and demonstrates standard 3-vessel arch anatomy. No dissection is seen. Pulmonary vasculature: The pulmonary trunk is normal in caliber. There are no filling defects identified in main, lobar, or segmental pulmonary branches to suggest pulmonary embolus. Heart: A cardiac pacemaker is present in the left chest wall. The heart is enlarged and without pericardial effusion. Lungs and pleural spaces: There are punctate calcified granulomas. No airspace consolidation or pleural effusion is identified. The trachea and central airways are clear. Mediastinum: There is no mediastinal lymphadenopathy. Dionna: Clear. Axillae: There is no axillary lymphadenopathy. Upper abdomen: Cholecystectomy clips are noted. A 10 mm left adrenal adenoma is unchanged. Partially visualized upper abdominal viscera is otherwise within normal limits. Skeletal structures: No lytic or blastic bony lesions are seen. IMPRESSION: 1. There is no evidence of pulmonary embolus in the main, lobar, or segmental pulmonary arteries. 2. Cardiomegaly and cardiac pacemaker. 3. No airspace consolidation or pleural effusion is identified. ACT 112: Negative or not required by law. Electronically signed by: Jaswant Parekh M.D. 10/21/2023 7:02 PM Discharge Plan Visit Data Chief Complaint: Chest Pain Stated Complaint: CHEST PAIN,SOB,WHOOSHING IN HEAD,BACK PAIN ED Provider: Cody Jasso Discharge Problem: Left-sided chest pain, Leukocytosis Forms Stand Alone Forms: [facility] Prescriptions Prescriptions: No Action torsemide 20 mg Tablet 20 mg PO Q OTHER DAY Rx Instructions: one tablet with extra table as directed metoprolol succinate 50 mg Tablet Extended Release 24 Hr 75 mg PO BID spironolactone [Aldactone] 25 mg Tablet 25 mg PO QAM levothyroxine 50 mcg Tablet 50 mcg PO DAILYBB escitalopram oxalate [Lexapro] 20 mg Tablet 20 mg PO DAILY Jardiance 10 mg Tablet 10 mg PO QAM Entresto 97-103 mg Tablet 1 tab PO BID omeprazole 40 mg capsule,delayed release(DR/EC) 40 mg PO HS gabapentin 300 mg capsule 300 mg PO BID montelukast [Singulair] 10 mg Tablet 10 mg PO HS hydroxyzine HCl 25 mg tablet 25 mg PO Q6H PRN (Reason: Anxiety) rosuvastatin 5 mg tablet 5 mg PO QAM Eliquis 5 mg Tablet 5 mg PO BID levonorgestrel 20.4 mcg/24 hrs (8 yrs) 52 mg Intrauterine Device 20.4 mcg INTRAUTERINE CONTINOUS Wegovy 2.4 mg/0.75 mL pen injector 2.4 mg SUBCUT WK Rx Instructions: TAKES SUNDAY OR FRIDAYS Referrals Referrals: Zora Morales MD [Primary Care Provider] -
[2023-10-21 18:52] LABS: C Reactive Protein 0.98 mg/dl (0-0.5)
[2023-10-21] MEDS ORDERED: OPTIRAY 320 125ml IV ONE (18:53)
--- NOTE | 2023-10-21 19:04 | CT Scan Report ---
CT ANGIOGRAM OF THE CHEST CLINICAL HISTORY: Atypical/left-sided chest pain. COMPARISON STUDY: Chest x-ray dated 10/21/2023. Chest CT dated 05/04/2022. TECHNIQUE: Following the IV administration of 119 cc of Optiray 320, CT angiogram of the chest was pe rformed from the upper abdomen to the thoracic inlet utilizing the pulmonary embolus protocol. Images are reviewed in the axial, sagittal, and coronal planes. 3-D MIPS images are created and assessed. I V contrast was administered without complication. A dose lowering technique was utilized adhering to the principles of ALARA. CT DOSE: 888.19 mGy.cm FINDINGS: Thyroid: Imaged portions of the thyroid gland are normal in size and attenuation. Thoracic aorta: The thoracic aorta is normal in caliber and demonstrates standard 3-vessel arch anato my. No dissection is seen. Pulmonary vasculature: The pulmonary trunk is normal in caliber. There are no filling defects identif ied in main, lobar, or segmental pulmonary branches to suggest pulmonary embolus. Heart: A cardiac pacemaker is present in the left chest wall. The heart is enlarged and without peric ardial effusion. Lungs and pleural spaces: There are punctate calcified granulomas. No airspace consolidation or pleur al effusion is identified. The trachea and central airways are clear. Mediastinum: There is no mediastinal lymphadenopathy. Dionna: Clear. Axillae: There is no axillary lymphadenopathy. Upper abdomen: Cholecystectomy clips are noted. A 10 mm left adrenal adenoma is unchanged. Partially visualized upper abdominal viscera is otherwise within normal limits. Skeletal structures: No lytic or blastic bony lesions are seen. IMPRESSION: 1. There is no evidence of pulmonary embolus in the main, lobar, or segmental pulmonary arteries. 2. Cardiomegaly and cardiac pacemaker. 3. No airspace consolidation or pleural effusion is identified. ACT 112: Negative or not required by law. Electronically signed by: Jaswant Parekh M.D. 10/21/2023 7:02 PM
[2023-10-21 19:36] LABS: Adenovirus PCR Not Detected (NotDetected); Bordetella parapertussis PCR Not Detected (NotDetected); Bordetella pertussis PCR Not Detected (NotDetected); Chlamydia pneumoniae PCR Not Detected (NotDetected); Coronavirus 229E PCR Not Detected (NotDetected); Coronavirus CoV-2 (COVID19)PCR Not Detected (NotDetected); Coronavirus HKU1 PCR Not Detected (NotDetected); Coronavirus NL63 PCR Not Detected (NotDetected); Coronavirus OC43PCR Not Detected (NotDetected); Human Metapneumovirus PCR Not Detected (NotDetected); Influenza A PCR Not Detected (NotDetected); Influenza B PCR Not Detected (NotDetected); Mycoplasma pneumoniae PCR Not Detected (NotDetected); Parainfluenza Virus 1 PCR Not Detected (NotDetected); Parainfluenza Virus 2 PCR Not Detected (NotDetected); Parainfluenza Virus 3 PCR Not Detected (NotDetected); Parainfluenza Virus 4 PCR Not Detected (NotDetected); Respiratory Syncytial VirusPCR Not Detected (NotDetected); Rhinovirus/Enterovirus PCR Not Detected (NotDetected)
[2023-10-21] MEDS ORDERED: MoRPHine SULFATE 2 MG/ML CARP IV STA (21:01)
--- NOTE | 2023-10-21 21:01 | History & Physical Report ---
Date of Service October 21, 2023 Assessment & Plan (1) Left-sided chest pain: Plan: 42-year-old female with past medical history significant for nonischemic Cardiomyopathy, chronic systolic CHF, paroxysmal atrial fibrillation, s/p ICD, hypertension, morbid obesity, irritable bowel syndrome, pseudotumor cerebri, history of sarcoma soft tissue, general anxiety disorder, major depression, comes with chest pain. Patient states since yesterday she is having left-sided chest pain radiating to the back and left arm 3/10 in severity. Not associate with any activity. No alleviating or relieving factors. Comes on its own and goes on its own. Associated with some shortness of breath. Denies any nausea. No cough. Afebrile. No headache. Vision is okay. No runny nose or sore throat. No abdominal pain. Normal bowel and bladder movements. Hemodynamicall y stable. Left-sided chest pain Initial workup unremarkable CTA chest unremarkable Will follow serial cardiac enzymes and echocardiogram Observe in telemetry N.p.o. for now Consult cardiology in a.m. 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 S/p ICD Currently on torsemide every other day as per patient On spironolactone, Jardiance, Entresto and metoprolol succinate Will follow echo Cardiology consulted Hyperlipidemia Statin Hypothyroidism On Synthyroid TSH is okay Hypertension On metoprolol succinate, diuretics and Entresto Will monitor Paroxysmal atrial fibrillation On Eliquis Metoprolol succinate Depression On Lexapro GERD Omeprazole Morbid obesity Seems on Wegovy Counseling DVT prophylaxis On Eliquis Disposition Observation in telemetry Full code History of Present Illness Chief Complaint: Chest pain Primary Care Provider: Zora Morales MD 42-year-old female with past medical history significant for nonischemic Cardiomyopathy, chronic systolic CHF, paroxysmal atrial fibrillation, s/p ICD, hypertension, morbid obesity, irritable bowel syndrome, pseudotumor cerebri, history of sarcoma soft tissue, general anxiety disorder, major depression, comes with chest pain. Patient states since yesterday she is having left-sided chest pain radiating to the back and left arm 3/10 in severity. Not associate with any activity. No alleviating or relieving factors. Comes on its own and goes on its own. Associated with some shortness of breath. Denies any nausea. No cough. Afebrile. No headache. Vision is okay. No runny nose or sore throat. No abdominal pain. Normal bowel and bladder movements. Hemodynamically stable. Past medical history. As mentioned above Past surgical history. Carpal tunnel surgery. 6 surgeries on right leg for cancer. Left total thyroid lobectomy. Cholecystectomy. Social history. . Quit smoking in 2018. Smoked half pack a day for 6 years. No alcohol use. No drug use. Family history. Mother had hypertension. Osteoarthritis. Allergies Allergy/AdvReac Type Severity Reaction Status Date / Time No Known Allergies Allergy Unknown Verified 10/21/23 16:59 Home Medications Medication Instructions Recorded Confirmed Type empagliflozin 10 mg tablet 10 mg PO QAM 04/19/22 10/21/23 History (Jardiance) escitalopram oxalate 20 mg tablet 20 mg PO DAILY 04/19/22 10/21/23 History (Lexapro) levothyroxine 50 mcg tablet 50 mcg PO DAILYBB 04/19/22 10/21/23 History metoprolol succinate 50 mg 75 mg PO BID 04/19/22 10/21/23 History tablet,extended release 24 hr sacubitril 97 mg-valsartan 103 mg 1 tab PO BID 04/19/22 10/21/23 History tablet (Entresto) spironolactone 25 mg tablet 25 mg PO QAM 04/19/22 10/21/23 History (Aldactone) torsemide 20 mg tablet 20 mg PO Q OTHER DAY 04/19/22 10/21/23 History apixaban 5 mg tablet (Eliquis) 5 mg PO BID 10/21/23 10/21/23 History gabapentin 300 mg capsule 300 mg PO BID 10/21/23 10/21/23 History hydroxyzine HCl 25 mg tablet 25 mg PO Q6H PRN Anxiety 10/21/23 10/21/23 History levonorgestrel 20.4 mcg/24 hrs (8 20.4 mcg intrauterine CONTINOUS 10/21/23 10/21/23 History yrs) 52 mg intrauterine device montelukast 10 mg tablet 10 mg PO HS 10/21/23 10/21/23 History (Singulair) omeprazole 40 mg capsule,delayed 40 mg PO HS 10/21/23 10/21/23 History release rosuvastatin 5 mg tablet 5 mg PO QAM 10/21/23 10/21/23 History semaglutide (weight loss) 2.4 2.4 mg subcut WK 10/21/23 10/21/23 History mg/0.75 mL subcutaneous pen injector (Wegovpatricia) Past Med/Surg History Medical History (Updated 10/21/23 @ 17:56 by Cody Jasso MD) Deep vein thrombophlebitis of left leg Osteosarcoma Depression Hypertension Surgical History S/P thyroidectomy Social History Smoking Status: Never smoker Hx Alcohol Use: No Hx Substance Use: No Preferred Language: Cape Verdean Communication Ability: Effective Site Safety Manager Required: No Beliefs That Will Affect Care: None Current Living Situation: Spouse and Family Feels Safe at Home: Yes Assistive Devices: None Review of Systems Review of Systems: All systems reviewed & are unremarkable except as noted in HPI & below Physical Exam Physical Exam: General- Not in distress Head- atraumatic Eyes- PERRL. ENT- oropharynx clear Neck- supple, no JVD. Lungs- clear to auscultation no wheezing or crackles. Heart- regular rhythm; no murmur, no gallop. Abdomen- normal bowel sounds, soft, nontender, no distension. Extremities- no pretibial edema, no erythema seen. Neuro- alert, oriented x 3; PERRL, no facial palsy; no dysarthria; moves extremities. Skin- warm & dry Results & Data Results & Data Vital Signs (Past 12 Hours) Vital Signs Temp Pulse Resp BP Pulse Ox O2 Del Method 10/21/23 20:30 90 17 134/97 97 Room Air 10/21/23 20:24 79 10/21/23 20:00 82 21 121/66 97 Room Air 10/21/23 19:30 81 14 122/83 97 Room Air 10/21/23 19:00 86 16 117/81 99 Room Air 10/21/23 18:00 82 19 139/100 96 10/21/23 17:00 94 H 21 127/104 H 95 10/21/23 16:35 90 10/21/23 16:31 87 17 160/100 H 96 10/21/23 16:16 36.7 C 86 20 104/79 96 Room Air Diagnostic Findings Laboratory Results WBC 12.02 K/ul (4.8-10.8) H 10/21/23 16: RBC 4.73 M/uL (4.20-5.40) 10/21/23 16:26 Hgb 14.7 g/dl (12.0-16.0) 10/21/23 16: Hct 43.1 % (37.0-47.0) 10/21/23 16: MCV 91.1 fL (80.0-100.0) 10/21/23 16: MCH 31.1 pg (25.0-34.0) 10/21/23 16: MCHC 34.1 g/dL (32.0-36.0) 10/21/23 16: RDW Std Deviation 44.9 fL (36.4-46.3) 10/21/23 16: RDW Coeff of Vandana 13.4 % (11.5-14.5) 10/21/23 16: Plt Count 247 K/uL (130-400) 10/21/23 16: MPV 10.9 fL (9.4-12.4) 10/21/23 16: Immature Gran % (Auto) 0.2 % 10/21/23 16: Neut % (Auto) 70.2 % 10/21/23 16:26 Lymph % (Auto) 23.0 % 10/21/23 16:26 Glenn % (Auto) 5.3 % 10/21/23 16:26 Eos % (Auto) 1.0 % 10/21/23 16:26 Baso % (Auto) 0.3 % 10/21/23 16:26 Neut # (Auto) 8.42 K/uL (1.40-6.50) H 10/21/23 16:26 Lymph # (Auto) 2.77 K/uL (1.20-3.40) 10/21/23 16:26 Glenn # (Auto) 0.64 K/uL (0.11-0.59) H 10/21/23 16:26 Eos # (Auto) 0.12 K/uL (0.00-0.50) 10/21/23 16:26 Baso # (Auto) 0.04 K/uL (0.00-0.20) 10/21/23 16:26 Immature Gran # (Auto) 0.03 K/uL (0.01-0.20) 10/21/23 16:26 ESR 11 mm/hr (0-20) 10/21/23 18:27 PT 10.9 Seconds (9.0-12.0) 10/21/23 16:26 INR 1.0 (0.9-1.1) 10/21/23 16:26 APTT 29 Seconds (21-31) 10/21/23 16:26 PTT Ratio 1.0 10/21/23 16:26 D-Dimer 350 ug/L FEU (0-500) 10/21/23 16:26 Sodium 136 mmol/L (136-145) 10/21/23 16:26 Potassium 3.9 mmol/L (3.5-5.1) 10/21/23 16:26 Chloride 105 mmol/L (98-107) 10/21/23 16:26 Carbon Dioxide 24 mmol/L (21-32) 10/21/23 16:26 Anion Gap 7 (3-11) 10/21/23 16:26 BUN 14 mg/dl (6-23) 10/21/23 16:26 Creatinine 0.86 mg/dl (0.6-1.2) 10/21/23 16:26 Est Cr Clr Drug Dosing 114.6 ml/min 10/21/23 16:26 Est GFR ( Amer) 97.3 ml/min 10/21/23 16:26 Est GFR (Non-Af Amer) 83.9 ml/min 10/21/23 16:26 BUN/Creatinine Ratio 16.3 (10-20) 10/21/23 16:26 Glucose 111 mg/dl (70-99(Fasting)) H 10/21/23 16:26 Calcium 9.0 mg/dl (8.6-10.3) 10/21/23 16:26 Total Bilirubin 0.4 mg/dl (0.2-1.0) 10/21/23 16:26 AST 11 U/L (13-39) L 10/21/23 16:26 ALT 11 U/L (7-52) 10/21/23 16:26 Alkaline Phosphatase 64 U/L (34-104) 10/21/23 16:26 Troponin I High Sens 12.1 pg/ml (0-14) 10/21/23 16:26 C-Reactive Protein 0.98 mg/dl (0-0.5) H 10/21/23 16:26 B-Natriuretic Peptide 59 pg/ml (0-100) 10/21/23 16:26 Total Protein 6.8 gm/dl (6.0-8.3) 10/21/23 16: Albumin 3.7 gm/dl (3.4-5.0) 10/21/23 16:26 Globulin 3.1 gm/dl (2.5-4.0) 10/21/23 16: Albumin/Globulin Ratio 1.2 (0.9-2) 10/21/23 16:26 Lipase 25 U/L (11-82) 10/21/23 16: Procalcitonin < 0.05 ng/ml (0-0.5) 10/21/23 18:23 TSH 3.207 uIu/ml (0.300-4.500) 10/21/23 16:26 HCG, Qual Negative (Negative) 10/21/23 16:26 Adenovirus (PCR) Not Detected (NotDetected) 10/21/23 Unknown B. pertussis DNA (PCR) Not Detected (NotDetected) 10/21/23 Unknown B.parapertussis DNA PCR Not Detected (NotDetected) 10/21/23 Unknown C. pneumoniae DNA (PCR) Not Detected (NotDetected) 10/21/23 Unknown Coronavirus OC43 (PCR) Not Detected (NotDetected) 10/21/23 Unknown Coronavirus HKU1 (PCR) Not Detected (NotDetected) 10/21/23 Unknown Coronavirus 229E (PCR) Not Detected (NotDetected) 10/21/23 Unknown SARS-CoV-2 (PCR) Not Detected (NotDetected) 10/21/23 Unknown Coronavirus NL63 (PCR) Not Detected (NotDetected) 10/21/23 Unknown Human Metapneumovir PCR Not Detected (NotDetected) 10/21/23 Unknown Influenza Type A (PCR) Not Detected (NotDetected) 10/21/23 Unknown Influenza Type B (PCR) Not Detected (NotDetected) 10/21/23 Unknown M. pneumoniae (PCR) Not Detected (NotDetected) 10/21/23 Unknown Parainfluenza 1 (PCR) Not Detected (NotDetected) 10/21/23 Unknown Parainfluenza 2 (PCR) Not Detected (NotDetected) 10/21/23 Unknown Parainfluenza 3 (PCR) Not Detected (NotDetected) 10/21/23 Unknown Parainfluenza 4 (PCR) Not Detected (NotDetected) 10/21/23 Unknown RSV (PCR) Not Detected (NotDetected) 10/21/23 Unknown Entero/Rhino (PCR) Not Detected (NotDetected) 10/21/23 Unknown Impressions Chest X-Ray 10/21/23 16:19 SINGLE VIEW CHEST CLINICAL HISTORY: Atypical chest pain. FINDINGS: An AP, portable, upright chest radiograph is compared to chest x-ray and chest CT dated 05/04/2022. A 2-lead cardiac AICD is unchanged in position. The heart is enlarged. The pulmonary vasculature is noncongested. The lungs and pleural spaces are clear. No pneumothorax is seen. The bony thorax is grossly intact. IMPRESSION: 1. Cardiomegaly and AICD without radiographic evidence of congestive failure. 2. No airspace consolidation or pleural effusion is identified. ACT 112: Negative or not required by law. Electronically signed by: Jaswant Parekh M.D. 10/21/2023 5:32 PM Chest CTA 10/21/23 18:24 CT ANGIOGRAM OF THE CHEST CLINICAL HISTORY: Atypical/left-sided chest pain. COMPARISON STUDY: Chest x-ray dated 10/21/2023. Chest CT dated 05/04/2022. TECHNIQUE: Following the IV administration of 119 cc of Optiray 320, CT angiogram of the chest was performed from the upper abdomen to the thoracic inlet utilizing the pulmonary embolus protocol. Images are reviewed in the axial, sagittal, and coronal planes. 3-D MIPS images are created and assessed. IV contrast was administered without complication. A dose lowering technique was utilized adhering to the principles of ALARA. CT DOSE: 888.19 mGy.cm FINDINGS: Thyroid: Imaged portions of the thyroid gland are normal in size and attenuation. Thoracic aorta: The thoracic aorta is normal in caliber and demonstrates standard 3-vessel arch anatomy. No dissection is seen. Pulmonary vasculature: The pulmonary trunk is normal in caliber. There are no filling defects identified in main, lobar, or segmental pulmonary branches to suggest pulmonary embolus. Heart: A cardiac pacemaker is present in the left chest wall. The heart is enlarged and without pericardial effusion. Lungs and pleural spaces: There are punctate calcified granulomas. No airspace consolidation or pleural effusion is identified. The trachea and central airways are clear. Mediastinum: There is no mediastinal lymphadenopathy. Dionna: Clear. Axillae: There is no axillary lymphadenopathy. Upper abdomen: Cholecystectomy clips are noted. A 10 mm left adrenal adenoma is unchanged. Partially visualized upper abdominal viscera is otherwise within normal limits. Skeletal structures: No lytic or blastic bony lesions are seen. IMPRESSION: 1. There is no evidence of pulmonary embolus in the main, lobar, or segmental pulmonary arteries. 2. Cardiomegaly and cardiac pacemaker. 3. No airspace consolidation or pleural effusion is identified. ACT 112: Negative or not required by law. Electronically signed by: Jaswant Parekh M.D. 10/21/2023 7:02 PM ECG Additional Comments: ECG. Sinus rhythm with occasional PVCs rate of 98. Left ventricle hypertrophy with repolarization abnormality. T wave inversion less evident in lateral leads Code Status & VTE Plan VTE Prophylaxis Plan VTE Prophylaxis will be ordered: Yes
[2023-10-21] MEDS ORDERED: hydrOXYzine HCl 25 MG TAB PO PRN (22:11)
[2023-10-21] MEDS ORDERED: MoRPHine SULFATE 2 MG/ML CARP IV PRN (22:11)
[2023-10-21] MEDS ORDERED: ACETAMINOPHEN 325 MG TAB PO PRN (22:11)
[2023-10-21] MEDS ORDERED: MONTELUKAST SODIUM 10 MG TABLET PO SCH (22:11)
[2023-10-21] MEDS ORDERED: NITROGLYCERIN SL 0.4 MG/TAB TAB SL PRN (22:11)
[2023-10-21] MEDS ORDERED: Nursing to Pharmacy Communication SCH (22:15)
[2023-10-21] MEDS ORDERED: PANTOprazole 40 MG TAB PO SCH (22:30)
[2023-10-21] MEDS ORDERED: ESCITALOPRAM OXALATE 20 MG TAB PO SCH (22:30)
[2023-10-21] MEDS: APIXABAN 5 MG TABLET PO SCH (22:36)
[2023-10-21] MEDS: METOPROLOL SUCC 25MG EXT REL TAB PO SCH (22:36)
[2023-10-21] MEDS: GABAPENTIN 300 MG CAP PO SCH (22:36)
[2023-10-21] MEDS: VALSARTAN/SACUBITRIL 103/97MG TAB PO SCH (22:37)
[2023-10-22 05:56] LABS: Basophils # (auto) 0.07 K/uL (0.00-0.20); Basophils % (auto) 0.7 %; Eosinophils # (auto) 0.17 K/uL (0.00-0.50); Eosinophils % (auto) 1.7 %; Hematocrit (blood only) 39.6 % (37.0-47.0); Hemoglobin 13.2 g/dl (12.0-16.0); Immature Granulocytes # (auto) 0.04 K/uL (0.01-0.20); Immature Granulocytes % (auto) 0.4 %; Lymphocytes # (auto) 3.28 K/uL (1.20-3.40); Lymphocytes % (auto) 32.7 %; Mean Corpuscular Hemoglobin 30.6 pg (25.0-34.0); Mean Corpuscular Hgb Conc 33.3 g/dL (32.0-36.0); Mean Corpuscular Volume 91.9 fL (80.0-100.0); Mean Platelet Volume 10.8 fL (9.4-12.4); Monocytes # (auto) 0.73 K/uL (0.11-0.59); Monocytes % (auto) 7.3 %; Neutrophils # (auto) 5.73 K/uL (1.40-6.50); Neutrophils % (auto) 57.2 %; Platelet Count 217 K/uL (130-400); RDW Coefficient of Variation 13.7 % (11.5-14.5); RDW Standard Deviation 45.6 fL (36.4-46.3); Red Blood Count 4.31 M/uL (4.20-5.40); White Blood Count 10.02 K/ul (4.8-10.8)
[2023-10-22 06:06] LABS: BUN Creatinine Ratio 15.8 (10-20); Calcium 8.7 mg/dl (8.6-10.3); Creatinine Clr Calc Pharmacy 95.1 ml/min; Est GFR (African American) 86.2 ml/min; Est GFR (Non-African American) 74.4 ml/min; Potassium 3.9 mmol/L (3.5-5.1)
[2023-10-22 06:20] LABS: Troponin I High Sensitivity 6.8 pg/ml (0-14)
[2023-10-22] MEDS ORDERED: LEVOTHYROXINE SODIUM 50 MCG TABLET PO SCH (06:30)
[2023-10-22] MEDS ORDERED: PERFLUTREN LIPID MICROSPHERE (DEFINITY) IV ONE (07:05)
[2023-10-22] MEDS: GABAPENTIN 300 MG CAP PO SCH (07:59)
[2023-10-22] MEDS: APIXABAN 5 MG TABLET PO SCH (07:59)
[2023-10-22] MEDS: VALSARTAN/SACUBITRIL 103/97MG TAB PO SCH (07:59)
[2023-10-22] MEDS: METOPROLOL SUCC 25MG EXT REL TAB PO SCH (08:01)
[2023-10-22] MEDS ORDERED: SPIRONOLACTONE 25 MG TAB PO SCH (09:00)
[2023-10-22] MEDS ORDERED: ESCITALOPRAM OXALATE 20 MG TAB PO SCH (09:00)
[2023-10-22] MEDS ORDERED: ROSUVASTATIN CALCIUM 5 MG TAB PO SCH (09:00)
[2023-10-22] MEDS ORDERED: EMPAGLIFLOZIN 10 MG TAB PO SCH (09:00)
--- NOTE | 2023-10-22 09:32 | Electrocardiogram Report ---
Test Reason : Blood Pressure : / mmHG Vent. Rate : 098 BPM Atrial Rate : 098 BPM P-R Int : 136 ms QRS Dur : 092 ms QT Int : 360 ms P-R-T Axes : 029 -23 117 degrees QTc Int : 459 ms Sinus rhythm with occasional Premature ventricular complexes Left ventricular hypertrophy with repolarization abnormality ( R in aVL , Wilfredo product ) Abnormal ECG When compared with ECG of 04-MAY-2022 17:39, Sinus rhythm has replaced Electronic atrial pacemaker T wave inversion less evident in Anterolateral leads Confirmed by Mingo Paniagua ([id number]) on 10/22/2023 9:32:10 AM Referred By: REFERRED SELF Confirmed By:Mingo Paniagua
--- NOTE | 2023-10-22 09:32 | Cardiology Consultation ---
Date of Consultation October 22, 2023 Assessment & Plan (1) Left-sided chest pain: (2) Nonischemic cardiomyopathy: (3) HFrEF (heart failure with reduced ejection fraction): (4) PAF (paroxysmal atrial fibrillation): Plan Complex 42-year-old female presenting with atypical chest pain described below. EKGs without acute change. High-sensitivity troponin negative. Resting echocardiography demonstrating known nonischemic cardiomyopathy with moderately reduced LV systolic function, EF 30 to 35%. Chest x-ray and CT scan without congestive heart failure or significant pleural effusion, also negative for PE and aortic catastrophe. Examination without decompensation. Telemetry and device interrogation without significant arrhythmia, revealing appropriate function with adequate battery reserve. Optivol below thresthol. Blood pressures borderline low. [place] [address] BID to 49-51 BID given observed BP, concurrently increasing ToproL XL dosing from 75 mg BID to 100 mg BID for additional heart rate control. Continue all other guideline directed medical therapies as prescribed. Supervising Physician Co-Signing Physician Notes 42-year-old female with history of nonischemic cardiomyopathy status post ICD implantation presented to the emergency department with chest discomfort. Describes sharp pain typically lasting less than 30 seconds. Pain reproducible with palpation. Denies exertional chest discomfort or heaviness. No recent change or decline in functional capacity. Denies orthopnea, PND, or lower extremity edema. Telemetry unremarkable overnight. Repeat bedside 2D transthoracic echocardiogram demonstrates stable cardiomyopathy with ejection fraction of 30-35%. PE: VSS. Gen: NAD, AAO x3. Heart: regular rhythm, normal S1-S2. No murmur. Lungs: Clear bilateral, no rales, rhonchi, wheeze. Extremities: No edema. A/p: Agree with above PA-C history, physical exam, assessment and plan. Chest discomfort appears noncardiac. Agree with medication changes including decreasing dose of Entresto and increasing Toprol-XL for additional heart rate control. No further inpatient cardiac testing or intervention recommended at this time. Outpatient cardiology follow-up in 2 to 4 weeks. Thank you for allow me to participate in the care of your patient. History of Present Illness Reason for Consultation: Chest pain Requesting Physician: Dr. Nj Attending Physician: Dr. Sang Mccoy MD History of Present Illness Mrs. Yesenia Hernández is a 42-year-old female who is being seen at the request of Dr. Nj. Reason for consultation is chest pain. Patient notes developing "really bad sharp pain" in the left breast that radiated underneath the left shoulder blade and into the shoulder and down into the left elbow. She describes the pain is like a phantom knife through the heart and into the back. The pain started on Sunday. Since initiation it has waxed and waned. No aggravating or alleviating factors identified. No significant improvement with morphine which upsets her stomach. Notes "it could all be my anxiety. I need to see a Psychiatrist." Additional complaints include headache, feeling tired, and with intermittent hand swelling. No activity related chest pain. No tachypalpitations. No device alarms or discharges. No stable orthopnea without PND. No lower extremity peripheral edema. No abrupt weight gain. No dizziness or syncope. No fevers or chills. No melena or hematochezia. Initial EKG on presentation, October 21, 2023, revealed sinus rhythm at 98 bpm with occasional premature ventricular complexes, LVH with repolarization abnormality QTc 459 ms. Repeat EKG is on October 22, [address] segment change. High-sensitivity troponin I negative x 2 at 12.1 then 6.8 pg/mL Resting echocardiography on October 22, 2023 revealed a moderately dilated left ventricle with mild concentric LVH. Ejection fraction 30 to 35%. Moderate to severe global hypokinesis noted of the LV. No significant valvular pathology observed. Device interrogation on October 21, 2023 at 17:31:35 demonstrated appropriate function, 9.8 years remaining longevity. No recent AT/AF, VT, or VF. Rhythm predominantly sensed. Atrial paced 14.6%. Ventricular paced less than 0.1%. Chest x-ray on presentation revealed cardiomegaly without radiographic evidence of congestive heart failure pleural effusion. Chest CT without evidence of PE, airspace consolidation, or pleural effusion. Continuous telemetry monitoring will sinus with occasional PVCs, heart rates predominantly in the 70s. Cardiac CT on 02/2022 revealed normal coronary arteries, Agatston calcium score 0. 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 Problem List: Chronic systolic heart failure, LVEF as low as 25-29% per echo 07/21/2021 Nonischemic dilated cardiomyopathy, +FLNC- related myofibrillar myopathy. 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 Bilateral carpal tunnel status post surgery Status postcholecystectomy Status post unilateral thyroid lobectomy Family History: Mother with hypertension. Biological father's history is unknown. Social History: Smoker. No alcohol. No illegal drug use. . Two children, daughter present at bedside for entire consultation. Disabled. Allergies Allergy/AdvReac Type Severity Reaction Status Date / Time No Known Allergies Allergy Unknown Verified 10/21/23 16:59 Home Medications Medication Instructions Recorded Confirmed Type empagliflozin 10 mg tablet 10 mg PO QAM 04/19/22 10/21/23 History (Jardiance) escitalopram oxalate 20 mg tablet 20 mg PO DAILY 04/19/22 10/21/23 History (Lexapro) levothyroxine 50 mcg tablet 50 mcg PO DAILYBB 04/19/22 10/21/23 History metoprolol succinate 50 mg 75 mg PO BID 04/19/22 10/21/23 History tablet,extended release 24 hr sacubitril 97 mg-valsartan 103 mg 1 tab PO BID 04/19/22 10/21/23 History tablet (Entresto) spironolactone 25 mg tablet 25 mg PO QAM 04/19/22 10/21/23 History (Aldactone) torsemide 20 mg tablet 20 mg PO Q OTHER DAY 04/19/22 10/21/23 History apixaban 5 mg tablet (Eliquis) 5 mg PO BID 10/21/23 10/21/23 History gabapentin 300 mg capsule 300 mg PO BID 10/21/23 10/21/23 History hydroxyzine HCl 25 mg tablet 25 mg PO Q6H PRN Anxiety 10/21/23 10/21/23 History levonorgestrel 20.4 mcg/24 hrs (8 20.4 mcg intrauterine CONTINOUS 10/21/23 10/21/23 History yrs) 52 mg intrauterine device montelukast 10 mg tablet 10 mg PO HS 10/21/23 10/21/23 History (Singulair) omeprazole 40 mg capsule,delayed 40 mg PO HS 10/21/23 10/21/23 History release rosuvastatin 5 mg tablet 5 mg PO QAM 10/21/23 10/21/23 History semaglutide (weight loss) 2.4 2.4 mg subcut WK 10/21/23 10/21/23 History mg/0.75 mL subcutaneous pen injector ([email or web address]) Patient History Medical History Deep vein thrombophlebitis of left leg Osteosarcoma Depression Hypertension Surgical History S/P thyroidectomy Social History Smoking Status: Never smoker Second Hand Exposure: No; Do You Dip or Chew Tobacco: No; Tobacco Cessation Education Requested by Patient: No Hx Alcohol Use: Yes Hx Substance Use: No Preferred Language: Welsh Communication Ability: Effective Catholic Priest Required: No Beliefs That Will Affect Care: None Current Living Situation: Spouse Other Information That Helps Us Care for You: No Feels Safe at Home: Yes Assistive Devices: None Review of Systems Review of Systems: Complete Review of Systems is as stated above, negative, or noncontributory. Physical Exam Physical Exam: General: A&Ox3. NAD. Elevated BMI HENT: Normocephalic. Atraumatic. Eyes: PER. Conjunctiva pink, sclera clear. Neck: No carotid bruits. No JVD. Heart: RRR. No murmur. No rub. No gallop. PMI is nondisplaced. Lungs: Clear to auscultation. Abdomen: +BS. Soft. Nontender. No masses or organomegaly. Extremities: No clubbing, cyanosis, or edema. Limited neurological examination is without focal deficits. Pulses: radial=2/4, posterior tibial=2/4. Results & Data Vital Signs (Past 12 Hours) Vital Signs Temp Pulse Pulse Resp BP BP BP 10/22/23 07:24 36.4 C L 70 18 95/54 L 10/22/23 04:30 36.5 C 81 18 91/60 L 10/21/23 22:26 36.6 C 89 18 130/88 10/21/23 22:05 82 10/21/23 21:42 83 16 101/66 Pulse Ox O2 Del Method O2 Flow Rate 10/22/23 07:24 95 Room Air 10/22/23 04:30 95 Room Air 10/21/23 22:26 97 Room Air 0 10/21/23 22:05 10/21/23 21:42 98 Room Air Laboratory Results Cardiac Enzymes 10/21/23 10/22/23 Range/Units 16:26 05:30 AST 11 L (13-39) U/L Troponin I High Sens 12.1 6.8 D (0-14) pg/ml B-Natriuretic Peptide 59 (0-100) pg/ml Coagulation 10/21/23 Range/Units 16:26 PT 10.9 (9.0-12.0) Seconds APTT 29 (21-31) Seconds B-Natriuretic Peptide 59 (0-100) pg/ml CBC 10/21/23 10/22/23 Range/Units 16:26 05:30 WBC 12.02 H 10.02 (4.8-10.8) K/ul RBC 4.73 4.31 (4.20-5.40) M/uL Hgb 14.7 13.2 (12.0-16.0) g/dl Hct 43.1 39.6 (37.0-47.0) % Plt Count 247 217 (130-400) K/uL Neut # (Auto) 8.42 H 5.73 (1.40-6.50) K/uL Lymph # (Auto) 2.77 3.28 (1.20-3.40) K/uL [place] # (Auto) 0.64 H 0.73 H (0.11-0.59) K/uL Eos # (Auto) 0.12 0.17 (0.00-0.50) K/uL Baso # (Auto) 0.04 0.07 (0.00-0.20) K/uL Comprehensive Metabolic Panel 10/21/23 10/22/23 Range/Units 16:26 05:30 Sodium 136 136 (136-145) mmol/L Potassium 3.9 3.9 (3.5-5.1) mmol/L Chloride 105 103 (98-107) mmol/L Carbon Dioxide 24 29 (21-32) mmol/L BUN 14 15 (6-23) mg/dl Creatinine 0.86 0.95 (0.6-1.2) mg/dl Glucose 111 H 90 (70-99(Fasting)) mg/dl Calcium 9.0 8.7 (8.6-10.3) mg/dl AST 11 L (13-39) U/L ALT 11 (7-52) U/L Alkaline Phosphatase 64 (34-104) U/L Total Protein 6.8 (6.0-8.3) gm/dl Albumin 3.7 (3.4-5.0) gm/dl Intake and Output 10/21/23 10/22/23 10/22/23 22:59 06:59 14:59 Intake Total 200 / 200 Balance 200 / 200 Intake: Oral 200 / 200 Other: # Unmeasured Voids 1 Weight 81.647 kg 111.2 kg Weight Measurement Method Built in [facility] Built in [facility]
--- NOTE | 2023-10-22 11:31 | Electrocardiogram Report ---
Test Reason : Blood Pressure : / mmHG Vent. Rate : 072 BPM Atrial Rate : 072 BPM P-R Int : 176 ms QRS Dur : 104 ms QT Int : 444 ms P-R-T Axes : 002 -14 090 degrees QTc Int : 486 ms Normal sinus rhythm Minimal voltage criteria for LVH, may be normal variant Nonspecific T wave abnormality Prolonged QT Abnormal ECG When compared with ECG of 21-OCT-2023 16:23, Premature ventricular complexes are no longer Present Confirmed by Mingo Paniagua ([id number]) on 10/22/2023 11:31:48 AM Referred By: REFERRED SELF Confirmed By:Mingo Paniagua
--- NOTE | 2023-10-22 13:31 | Hospitalist Progress Note ---
Date of Service October 22, 2023 Assessment & Plan (1) Left-sided chest pain: Plan: 42-year-old female with past medical history significant for nonischemic Cardiomyopathy, chronic systolic CHF, paroxysmal atrial fibrillation, s/p ICD, h ypertension, morbid obesity, irritable bowel syndrome, pseudotumor cerebri, history of sarcoma soft tissue, general anxiety disorder, major depression, comes with chest pain. Patient states since 1 day [employer]LOOR [employer], she is having left-sided chest pain radiating to the back and left arm 3/10 in severity. Not associate with any activity. No alleviating or relieving factors. Comes on its own and goes on its own. Associated with some shortness of breath. Denies any nausea. No cough. Afebrile. No headache. Vision is okay. No runny nose or sore throat. No abdominal pain. Normal bowel and bladder movements. Hemodynamically stable. She is being managed for the following: Left-sided chest pain Came in with left-sided chest pain radiating to back and left UE. See above. Admitting troponin trends negative. Admitting EKG with no acute ST or T changes. Admitting echo with EF of 30 to 35%, moderate to severe global hypokinesis of the left ventricle. Admitting CXR with no acute finding. Admitting CTA with no evidence of PE or pneumonia or pleural effusion. On exam, pain is not reproducible with palpation or range of motion. Patient denies retrosternal burning sensation. Continue telemetry, cardiology on board, optimizing cardiac medications. 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 Status post ICD. Currently on torsemide every other day/spironolactone/Jardiance/Entresto/metoprolol succinate. Cardiology on board, optimizing medications -Entresto dose reduced, metoprolol dose increased. Patient appears euvolemic. Other chronic medical conditions: Continue with/resume home meds as and when able. Hyperlipidemia: Continue home rosuvastatin Hypothyroidism: Continue home Synthroid Hypertension: Borderline low, medications being revised. Paroxysmal A-fib: Continue home Eliquis and metoprolol. Metoprolol being optimized. Depression: Continue home Lexapro GERD: Continue home PPI Morbid obesity: Patient on Wegovy, patient to follow-up with her outpatient prescriber for long-term management. DVT prophylaxis: On Eliquis Full code Admission and Anticipated Discharge Date Admission Date: October 21, 2023 Subjective Patient was seen and examined at bedside. Patient was lying in bed, on room air, resting comfortably, NAD. Patient reports sharp pain on the left side radiating to the back and left upper arm and elbow. Pain was not reproducible at bedside exam either with palpation or with range of motion. Patient denies febrile illness/flulike illness/headache/dizziness/acute changes in her bowel or bladder habits. Physical Exam Physical Exam: GENERAL: Alert and oriented x3. NAD, on RA. Obese Class III. HEENT: No pallor, no icterus. Pupils equal, round and reactive to light. Oral mucosa moist. NECK: No JVD, no neck masses. HEART: S1 and S2 heard. Regular rate and rhythm. No murmur, no gallop. RESPIRATORY SYSTEM: Normal AP diameter. No accessory muscle use. No wheezing, no crackles. ABDOMEN: Soft, bowel sounds present, nontender, no distention. CENTRAL NERVOUS SYSTEM: No facial droop. Speech is clear. Obeys simple commands. Moves extremities. EXTREMITIES: No edema, no erythema seen. Results & Data Results & Data Vital Signs (Past 12 Hours) Vital Signs Temp Pulse Resp BP Pulse Ox O2 Del Method 10/22/23 11:38 36.5 C 65 18 108/63 95 Room Air 10/22/23 08:30 114/65 10/22/23 07:24 36.4 C L 70 18 95/54 L 95 Room Air 10/22/23 04:30 36.5 C 81 18 91/60 L 95 Room Air
--- NOTE | 2023-10-22 17:20 | Discharge Summary ---
Date of Service October 22, 2023 Admission HPI Per Admitting Provider 42-year-old female with past medical history significant for nonischemic Cardiomyopathy, chronic systolic CHF, paroxysmal atrial fibrillation, s/p ICD, hypertension, morbid obesity, irritable bowel syndrome, pseudotumor cerebri, history of sarcoma soft tissue, general anxiety disorder, major depression, comes with chest pain. Patient states since yesterday she is having left-sided chest pain radiating to the back and left arm 3/10 in severity. Not associate with any activity. No alleviating or relieving factors. Comes on its own and goes on its own. Associated with some shortness of breath. Denies any nausea. No cough. Afebrile. No headache. Vision is okay. No runny nose or sore throat. No abdominal pain. Normal bowel and bladder movements. Hemodynamically stable. Past medical history. As mentioned above Past surgical history. Carpal tunnel surgery. 6 surgeries on right leg for cancer. Left total thyroid lobectomy. Cholecystectomy. Social history. . Quit smoking in 2018. Smoked half pack a day for 6 years. No alcohol use. No drug use. Family history. Mother had hypertension. Osteoarthritis. Admission Exam Per Admitting Provider General- Not in distress Head- atraumatic Eyes- PERRL. ENT- oropharynx clear Neck- supple, no JVD. Lungs- clear to auscultation no wheezing or crackles. Heart- regular rhythm; no murmur, no gallop. Abdomen- normal bowel sounds, soft, nontender, no distension. Extremities- no pretibial edema, no erythema seen. Neuro- alert, oriented x 3; PERRL, no facial palsy; no dysarthria; moves extremities. Skin- warm & dry Principal Diagnosis left-sided chest pain, rule out ACS History of chronic systolic CHF Discharge Exam GENERAL: Alert and oriented x3. NAD, on RA. Obese Class III. HEENT: No pallor, no icterus. Pupils equal, round and reactive to light. Oral mucosa moist. NECK: No JVD, no neck masses. HEART: S1 and S2 heard. Regular rate and rhythm. No murmur, no gallop. RESPIRATORY SYSTEM: Normal AP diameter. No accessory muscle use. No wheezing, no crackles. ABDOMEN: Soft, bowel sounds present, nontender, no distention. CENTRAL NERVOUS SYSTEM: No facial droop. Speech is clear. Obeys simple commands. Moves extremities. EXTREMITIES: No edema, no erythema seen. Discharge Data Allergies Allergy/AdvReac Type Severity Reaction Status Date / Time No Known Allergies Allergy Unknown Verified 10/21/23 16:59 Consultations 10/21/23 19:25 ED Decision to Admit Stat 10/22/23 08:00 Consult Cardiology Routine Ordered Studies 10/21/23 18:24 CT angio chest PE protocol Stat Hospital Course (1) Left-sided chest pain: 42-year-old female with past medical history significant for nonischemic Cardiomyopathy, chronic systolic CHF, paroxysmal atrial fibrillation, s/p ICD, hypertension, morbid obesity, irritable bowel syndrome, pseudotumor cerebri, history of sarcoma soft tissue, general anxiety disorder, major depression, comes with chest pain. Patient states since 1 day CERTIFIED PHLEBOTOMIST, she is having left-sided chest pain radiating to the back and left arm 3/10 in severity. Not associate with any activity. No alleviating or relieving factors. Comes on its own and goes on its own. Associated with some shortness of breath. Denies any nausea. No cough. Afebrile. No headache. Vision is okay. No runny nose or sore throat. No abdominal pain. Normal bowel and bladder movements. Hemodynamically stable. She was managed for the following: Left-sided chest pain Came in with left-sided chest pain radiating to back and left UE. See above. Admitting troponin trends negative. Admitting EKG with no acute ST or T changes. Admitting echo with EF of 30 to 35%, moderate to severe global hypokinesis of the left ventricle. Admitting CXR with no acute finding. Admitting CTA with no evidence of PE or pneumonia or pleural effusion. On exam, pain is not reproducible with palpation or range of motion. Patient denies retrosternal burning sensation. Continue telemetry, cardiology on board, optimizing cardiac medications. d/w cardiology, close f/u on dc. 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 Status post ICD. Currently on torsemide every other day/spironolactone/Jardiance/Entresto/metoprolol succinate. Cardiology on board, optimizing medications -Entresto dose reduced, metoprolol dose increased. Patient appears euvolemic. Other chronic medical conditions: Continue with/resume home meds as and when able. Hyperlipidemia: Continue home rosuvastatin Hypothyroidism: Continue home Synthroid Hypertension: Borderline low, medications being revised. Paroxysmal A-fib: Continue home Eliquis and metoprolol. Metoprolol being optimized. Depression: Continue home Lexapro GERD: Continue home PPI Morbid obesity: Patient on Wegovy, patient to follow-up with her outpatient prescriber for long-term management. DVT prophylaxis: On Eliquis Full code Patient is being discharged home with following instruction at the point of discharge: Follow-up with your primary care physician within a week time and likely you will need labs CBC/CMP/magnesium/phosphorus. Cardiology evaluated you while in the hospital, your Entresto dose has been reduced to Entresto 4951 twice a day and your Toprol-XL has been increased to 100 mg twice a day. Follow-up with cardiology in 2 to 4 weeks time upon discharge. Take your medications as prescribed. Please make sure that you are able to get your medications today by calling your pharmacy before you leave the hospital so that your treatment continuity is not broken. Home Health Attestation I certify that this patient is under my care and that I, or a physicians assistant golf course superintendent working with me, had a face to-face encounter that meets the home health [id number] encounter requirements with this patient. The encounter with the patient was in whole, or in part, for the following medical condition, which is the primary reason for home health care (list medical condition): I certify that, based on my findings, the following services are medically necessary home health services: My clinical findings support the need for the above services because: Further, I certify that my clinical findings support that this patient is homebound (i.e. absences from home require considerable and taxing effort and are for medical reasons or uatsdin services or infrequently or of short duration when for other reasons) because: Certification for Home Health Services: Based on the above findings, I certify that this patient is confined to the home and needs intermittent prison care, physical therapy and/or speech therapy or continues to need occupational therapy. The patient is under my care, and I have initiated the establishment of the plan of care. This patient will be followed by a physician who will periodically review the plan of care. Total Time Total Time Spent Total Time Spent (In Minutes): 45 Discharge Plan Discharge Items Patient Disposition: Home - Self-Care Reason For Visit: CHEST PAIN Discharge Diagnosis: left-sided chest pain, rule out ACS History of chronic systolic CHF Activity: Resume your previous activity Non-emergency contact: Primary Care Provider Call non-emergency contact if: you have any medication questions, your symptoms worsen and your temperature is above 101.5 Follow-up/Referrals: Zora Morales MD [Primary Care Provider] - Diet: Heart Healthy Addtl Attending Provider Instructions: Follow-up with your primary care physician within a week time and likely you will need labs CBC/CMP/magnesium/phosphorus. Cardiology evaluated you while in the hospital, your Entresto dose has been reduced to Entresto 4951 twice a day and your Toprol-XL has been increased to 100 mg twice a day. Follow-up with cardiology in 2 to 4 weeks time upon discharge. Take your medications as prescribed. Please make sure that you are able to get your medications today by calling your pharmacy before you leave the hospital so that your treatment continuity is not broken. Pending Studies at Discharge: No Stand-Alone Forms: My [facility], Smoking Cessation Medications and DC Order Prescriptions: New metoprolol succinate 100 mg tablet extended release 24 hr 100 mg PO BID Qty: 60 0RF Entresto 49-51 mg Tablet 1 tab PO BID Qty: 60 0RF Continued torsemide 20 mg Tablet 20 mg PO Q OTHER DAY Rx Instructions: one tablet with extra table as directed spironolactone [Aldactone] 25 mg Tablet 25 mg PO QAM levothyroxine 50 mcg Tablet 50 mcg PO DAILYBB escitalopram oxalate [Lexapro] 20 mg Tablet 20 mg PO DAILY Jardiance 10 mg Tablet 10 mg PO QAM omeprazole 40 mg capsule,delayed release(DR/EC) 40 mg PO HS gabapentin 300 mg capsule 300 mg PO BID montelukast [Singulair] 10 mg Tablet 10 mg PO HS hydroxyzine HCl 25 mg tablet 25 mg PO Q6H PRN (Reason: Anxiety) rosuvastatin 5 mg tablet 5 mg PO QAM Eliquis 5 mg Tablet 5 mg PO BID levonorgestrel 20.4 mcg/24 hrs (8 yrs) 52 mg Intrauterine Device 20.4 mcg INTRAUTERINE CONTINOUS Wegovy 2.4 mg/0.75 mL pen injector 2.4 mg SUBCUT WK Rx Instructions: TAKES SUNDAY OR FRIDAYS Discontinued metoprolol succinate 50 mg Tablet Extended Release 24 Hr 75 mg PO BID Entresto 97-103 mg Tablet 1 tab PO BID Discharge Orders: Discharge Order (Routine); Ordered 10/22/23 Ordered By: Sang Mccoy Admission Data Admit Date/Time: 10/21/23 20:58 Attending Provider: Sang Mccoy Admit Provider: Luis Nj Primary Care Provider: Zora Morales Other Providers: Speedy De Santiago; Deni Kirby
[2023-10-22] MEDS ORDERED: METOPROLOL SUCC 50MG EXT REL TAB PO SCH (21:00)
[2023-10-22] MEDS ORDERED: VALSARTAN/SACUBITRIL 51/49 MG TAB PO SCH (21:00)
[2023-10-23] MEDS ORDERED: TORSEMIDE 20 MG TAB PO SCH (09:00)
== END 2023-10-22 18:00 | disposition home or self-care (01) ==
LOC: ED 16:10 → 4W 16:10 → SUATTDRO 20:58 → 4W 21:49